=== PATIENT | male | born 1940 | race Caucasian/White ===

== ENCOUNTER 2017-05-18 16:35 | Emergency (ER) | payer MEDICARE, BC ==
[2017-05-18 17:13] VITALS: BP 148/64
--- NOTE | 2017-05-18 17:54 | EDM.PDOC ---
ED HPI GENERAL MEDICAL PROBLEM - General Chief Complaint: General Stated Complaint: not able to sleep at night Time Seen by Provider: 05/18/17 17:15 Source of Information: Reports: Patient History Limitations: Reports: No Limitations - History of Present Illness INITIAL COMMENTS - FREE TEXT/NARRATIVE: Patient presents to discuss insomnia treatment options and check his blood pressure at the request of his . He isn't sure why she wanted him to come to the ER today since he already has an appointment with his PCP tomorrow but he came in anyway. He says he hasn't been able to sleep well for about a week although he is feeling very tired. He wonders what I recommend. 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 He takes Atenolol for blood pressure. - Related Data Allergies Allergy/AdvReac Type Severity Reaction Status Date / Time hydromorphone HCl Allergy Cannot Verified 05/18/17 17:13 [From Dilaudid] Remember penicillin Allergy Hives Verified 05/18/17 17:13 Home Meds: Home Meds Atenolol 25 mg PO DAILY 05/03/15 [History] FLUoxetine [PROzac] 20 mg PO DAILY 05/03/15 [History] Terazosin [Hytrin] 2 mg PO DAILY 05/03/15 [History] Hydrocodone/Acetaminophen [Hydrocodon-Acetaminophn 10-325] 1 - 2 tab PO BID PRN #30 05/12/15 [Rx] Aspirin/Caffeine [Anacin 400-32 mg Tablet] 2 each PO DAILY 06/12/15 [History] Donepezil HCl [Aricept] 5 mg PO BEDTIME 06/12/15 [History] Past Medical History HEENT History: Reports: Cataract Cardiovascular History: Reports: Bypass, CAD, High Cholesterol, Hypertension Respiratory History: Reports: Intubation, Previous Gastrointestinal History: Reports: Chronic Constipation Other Gastrointestinal History: twisted colon with surgical removal Genitourinary History: Reports: Prostate Disorder Other Genitourinary History: urgency Musculoskeletal History: Reports: Arthritis Other Musculoskeletal History: shuffled gait, falls easily, unsteady frequently Neurological History: Reports: None Psychiatric History: Reports: Anxiety, Depression Endocrine/Metabolic History: Reports: None Hematologic History: Reports: None Immunologic History: Reports: None Oncologic (Cancer) History: Reports: None Dermatologic History: Reports: None - Infectious Disease History Infectious Disease History: Reports: Chicken Pox, Measles, Mumps, Pertussis ( Whooping Cough) - Past Surgical History Head Surgeries/Procedures: Reports: None HEENT Surgical History: Reports: Cataract Surgery, Oral Surgery, Tonsillectomy Cardiovascular Surgical History: Reports: Coronary Artery Bypass Respiratory Surgical History: Reports: None GI Surgical History: Reports: Appendectomy, Cholecystectomy, Colon, Colonoscopy , EGD Male Surgical History: Reports: None Musculoskeletal Surgical History: Reports: Hip Replacement Oncologic Surgical History: Reports: None Social & Family History - Tobacco Use Smoking Status *Q: Never Smoker Second Hand Smoke Exposure: No - Caffeine Use Caffeine Use: Reports: Coffee - Alcohol Use Days Per Week of Alcohol Use: 1 Number of Drinks Per Day: 1 Total Drinks Per Week: 1 - Recreational Drug Use Recreational Drug Use: No - Living Situation & Occupation Living situation: Reports: Occupation: Retired ED ROS GENERAL - Review of Systems Review Of Systems: See Below Constitutional: Reports: Fatigue (with insomnia). Denies: Fever, Chills, Malaise, Weakness, Diaphoresis HEENT: Denies: Ear Pain, Throat Pain, Vision Change Respiratory: Denies: Shortness of Breath, Cough Cardiovascular: Denies: Chest Pain, Lightheadedness, Syncope GI/Abdominal: Denies: Abdominal Pain, Constipation, Diarrhea, Vomiting : Denies: Dysuria Musculoskeletal: Reports: No Symptoms Skin: Denies: Cyanosis, Jaundice, Mottled, Pallor, Diaphoresis Neurological: Denies: Confusion, Dizziness, Headache, Seizure, Syncope Psychiatric: Denies: Agitation, Anxiety, Confusion ED EXAM, GENERAL - Physical Exam Exam: See Below Exam Limited By: No Limitations General Appearance: Alert, WD/WN, No Apparent Distress Eye Exam: Bilateral Eye: EOMI, Normal Inspection, PERRL Ears: Normal External Exam, Hearing Grossly Normal Nose: Normal Inspection, No Blood Throat/Mouth: Normal Inspection, Normal Lips, Normal Voice, No Airway Compromise Head: Atraumatic, Normocephalic Neck: Normal Inspection, Full Range of Motion Respiratory/Chest: No Respiratory Distress, Lungs Clear, Normal Breath Sounds, No Accessory Muscle Use Cardiovascular: Regular Rate, Rhythm, No Murmur GI/Abdominal: Normal Bowel Sounds, Soft, Non-Tender, No Organomegaly Back Exam: No: CVA Tenderness (L), CVA Tenderness (R) Extremities: Normal Inspection, Normal Range of Motion Neurological: Alert, Oriented, Normal Cognition, No Motor/Sensory Deficits Psychiatric: Normal Affect, Normal Mood Skin Exam: Warm, Dry, Intact, Normal Color, No Rash Course - Vital Signs Last Recorded V/S: Last Vital Signs Temp 98.2 F 05/18/17 17:11 Pulse 57 L 05/18/17 17:11 Resp 20 05/18/17 17:11 BP 148/64 H 05/18/17 17:11 Pulse Ox 98 05/18/17 17:11 - Re-Assessments/Exams Free Text/Narrative Re-Assessment/Exam: 05/18/17 17:55 Discussed his blood pressure which is fine for ER standards but slightly high for daily average. This should be evaluated by his PCP. I advised him to try the melatonin again tonight and discuss with his PCP tomorrow at his appointment whether this is his best option or if he suggests something else. Patient agrees and is discharged in stable condition. Departure - Departure Time of Disposition: 17:48 Disposition: Home, Self-Care 01 Condition: Good Clinical Impression: Insomnia Qualifiers: Insomnia type: unspecified Qualified Code(s): G47.00 - Insomnia, unspecified - Discharge Information Referrals: Hailey Mcgovern PA-C [Primary Care Provider] - Additional Instructions: 1. Try the melatonin that you picked up yesterday. Follow the instructions on the bottle. 2. Follow up with your PCP tomorrow as scheduled to discuss with him how the melatonin is working and to discuss other options. 3. Discuss blood pressure control with your PCP tomorrow as well.
== END 2017-05-18 18:00 | disposition home or self-care (01) ==
LOC: KA.ED 16:35
DX: G47.00 Insomnia, unspecified (principal); I25.10 Atherosclerotic heart disease of native coronary artery without angina pectoris; I10 Essential (primary) hypertension; E78.00 Pure hypercholesterolemia, unspecified; Z95.1 Presence of aortocoronary bypass graft; M19.90 Unspecified osteoarthritis, unspecified site; Z90.49 Acquired absence of other specified parts of digestive tract; Z98.890 Other specified postprocedural states; Z79.899 Other long term (current) drug therapy; Z88.0 Allergy status to penicillin; Z88.5 Allergy status to narcotic agent
CPT/HCPCS: 99282; 99283

== ENCOUNTER 2018-02-26 12:26 | Inpatient (IN) | payer MEDICARE, BC ==
[2018-02-26 13:16] LABS: ANION GAP 15.9 mmol/L (5-15); CHLORIDE,CL 106 mmol/L (98-115); SODIUM,NA 144 mmol/L (136-145)
[2018-02-26] MEDS ORDERED: Sodium Chloride 0.9% 5 ML Syringe FLUSH PRN (15:08)
[2018-02-26] MEDS ORDERED: LORazepam 0.5 MG Tab PO PRN (15:16)
[2018-02-26] MEDS ORDERED: Lidocaine 2% 100 MG/5 ML Syringe IVPUSH PRN (15:27)
[2018-02-26] MEDS ORDERED: Atropine 0.1 MG/ML 10 ML Syringe IVPUSH PRN (15:27)
[2018-02-26] MEDS ORDERED: Nitroglycerin 0.4 MG Tab.SL SL PRN (15:27)
[2018-02-26] MEDS ORDERED: EPINEPHrine 1:10,000 1 MG/10 ML Syringe IVPUSH PRN (15:27)
[2018-02-26] MEDS: Furosemide 40 MG/4 ML VIAL IVPUSH SCH (17:01)
[2018-02-26] MEDS: Carvedilol 6.25 MG Tab PO SCH (20:06)
[2018-02-26] MEDS: atorvaSTATin 10 MG Tab PO SCH (20:06)
[2018-02-26] MEDS: Apixaban 5 MG Tab PO SCH (20:06)
[2018-02-26] MEDS: Acetaminophen/HYDROcodone 325-10 MG Tab PO PRN (23:50)
[2018-02-27 08:22] LABS: ANION GAP 17.8 mmol/L (5-15); CHLORIDE,CL 104 mmol/L (98-115); SODIUM,NA 146 mmol/L (136-145)
[2018-02-27] MEDS: Furosemide 40 MG/4 ML VIAL IVPUSH SCH ×2 (08:46→16:34)
[2018-02-27] MEDS: FLUoxetine 10 MG Cap PO SCH (08:48)
[2018-02-27] MEDS: Terazosin 1 MG Cap PO SCH (08:49)
[2018-02-27] MEDS: Apixaban 5 MG Tab PO SCH ×2 (08:49→21:37)
--- NOTE | 2018-02-27 09:38 | PCM.PN ---
- General Info Date of Service: 02/27/18 Admission Dx/Problem (Free Text): CHF exacerbation HFrEF - Review of Systems Systems Review Comment:: Bryant is seen today on inpatient rounds. He was admitted from clinic on with CHF exacerbation manifested as worsening LE edema. 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 He had no SOB. 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 He does have a pacemaker. He also has a hx of CAD with CABG in 2001. See admission H&P for full details. He states this morning his legs feel better. He doesn't take his lasix as directed as an outpatient. He has been on 40 mg IV BID. While his BNP did increase from 1030yesterday to 1250 today, his weight is down 4 pounds. A dorsey catheter was attempted to be placed yesterday for accurate I&O's but was unable to be placed. He reportedly can only void 100-200 cc's at a time. He does not feel he empties his bladder completely. He has no SOB or chest pain. He has chronic dizziness. He states "Dr. Pereira gave one of my friends a pill for it and it helped, do you have a pill I could take?". He has never tried meclizine in the past. - Patient Data Vitals - Most Recent: Last Vital Signs Temp 98.1 F 02/27/18 07:00 Pulse 61 02/27/18 07:00 Resp 18 02/27/18 07:00 BP 154/77 H 02/27/18 08:49 Pulse Ox 93 L 02/27/18 07:45 Weight - Most Recent: 182 lb I&O - Last 24 Hours: Intake & Output 02/26/18 02/27/18 02/27/18 22:59 06:59 14:59 Intake Total 320 0 Output Total 1575 675 Balance -1255 -675 Lab Results Last 24 Hours: Laboratory Results - last 24 hr 02/26/18 02/26/18 02/26/18 Range/Units 12:46 12:46 12:46 WBC 4.5 L (5.0-10.0) 10^3/uL RBC 4.01 L (4.50-6.00) 10^6/uL Hgb 10.1 L D (13.0-17.0) g/dL Hct 31.7 L (40.0-52.0) % MCV 79.1 L D (82.0-92.0) fL MCH 25.3 L (27.0-31.0) pg MCHC 32.0 (32.0-36.0) g/dL RDW 17.4 H (11.5-14.5) % Plt Count 159 (150-300) 10^3/uL MPV 8.1 (7.4-10.4) fL Neut % (Auto) 69.8 (50.0-70.0) % Lymph % (Auto) 16.3 L (20.0-40.0) % Gilliam % (Auto) 9.6 H (2.0-8.0) % Eos % (Auto) 3.5 H (1.0-3.0) % Baso % (Auto) 0.8 (0.0-1.0) % Neut # (Auto) 3.2 (2.5-7.0) 10^3/uL Lymph # (Auto) 0.7 L (1.0-4.0) 10^3/uL Gilliam # (Auto) 0.4 (0.1-0.8) 10^3/uL Eos # (Auto) 0.2 (0.1-0.3) 10^3/uL Baso # (Auto) 0.0 (0.0-0.1) 10^3/uL Sodium 144 (136-145) mmol/L Potassium 4.0 (3.3-5.3) mmol/L Chloride 106 (98-115) mmol/L Carbon Dioxide 26.1 (21.0-32.0) mmol/L Anion Gap 15.9 H (5-15) mmol/L BUN 26 H (6-25) mg/dL Creatinine 1.05 (0.51-1.17) mg/dL Est Cr Clr Drug Dosing TNP Estimated GFR (MDRD) > 60 mL/min Glucose 92 mg/dL Calcium 8.7 (8.7-10.3) mg/dL Total Bilirubin 1.7 H (0.2-1.0) mg/dL AST 21 (15-37) U/L ALT 19 (12-78) U/L Alkaline Phosphatase 64 (46-116) IU/L Troponin I < 0.04 (0.00-0.070) ng/mL B-Natriuretic Peptide (0-100) pg/mL Total Protein 6.2 L (6.4-8.2) g/dL Albumin 3.48 (3.00-4.80) g/dL Triglycerides 63 (30-150) mg/dL Cholesterol 89 L (100-199) mg/dL LDL Cholesterol, Calc 40 (0-100) mg/dL HDL Cholesterol 36 L (40-60) mg/dL 02/26/18 02/27/18 02/27/18 Range/Units 13:38 07:25 07:25 WBC 5.0 (5.0-10.0) 10^3/uL RBC 4.31 L (4.50-6.00) 10^6/uL Hgb 11.0 L (13.0-17.0) g/dL Hct 33.9 L (40.0-52.0) % MCV 78.7 L (82.0-92.0) fL MCH 25.4 L (27.0-31.0) pg MCHC 32.3 (32.0-36.0) g/dL RDW 17.7 H (11.5-14.5) % Plt Count 176 (150-300) 10^3/uL MPV 7.9 (7.4-10.4) fL Neut % (Auto) 56.3 (50.0-70.0) % Lymph % (Auto) 26.9 (20.0-40.0) % Gilliam % (Auto) 10.8 H (2.0-8.0) % Eos % (Auto) 4.6 H (1.0-3.0) % Baso % (Auto) 1.4 H (0.0-1.0) % Neut # (Auto) 2.9 (2.5-7.0) 10^3/uL Lymph # (Auto) 1.3 (1.0-4.0) 10^3/uL Gilliam # (Auto) 0.5 (0.1-0.8) 10^3/uL Eos # (Auto) 0.2 (0.1-0.3) 10^3/uL Baso # (Auto) 0.1 (0.0-0.1) 10^3/uL Sodium 146 H (136-145) mmol/L Potassium 4.1 (3.3-5.3) mmol/L Chloride 104 (98-115) mmol/L Carbon Dioxide 28.3 (21.0-32.0) mmol/L Anion Gap 17.8 H (5-15) mmol/L BUN 23 (6-25) mg/dL Creatinine 1.04 (0.51-1.17) mg/dL Est Cr Clr Drug Dosing 54.73 Estimated GFR (MDRD) > 60 mL/min Glucose 98 mg/dL Calcium 9.0 (8.7-10.3) mg/dL Total Bilirubin 1.7 H (0.2-1.0) mg/dL AST 21 (15-37) U/L ALT 18 (12-78) U/L Alkaline Phosphatase 68 (46-116) IU/L Troponin I (0.00-0.070) ng/mL B-Natriuretic Peptide 1030 H 1250 H (0-100) pg/mL Total Protein 6.6 (6.4-8.2) g/dL Albumin 3.60 (3.00-4.80) g/dL Triglycerides (30-150) mg/dL Cholesterol (100-199) mg/dL LDL Cholesterol, Calc (0-100) mg/dL HDL Cholesterol (40-60) mg/dL Med Orders - Current: Current Medications Hydrocodone Bitart/Acetaminophen ([place] 325-10 Mg) 1 tab PO BID PRN PRN Reason: Pain (moderate 4-6) Last Admin: 02/26/18 23:50 Dose: 1 tab Apixaban (Eliquis) 5 mg PO BID DANYA Last Admin: 02/27/18 08:49 Dose: 5 mg Atorvastatin Calcium (Lipitor) 20 mg PO BEDTIME DANYA Last Admin: 02/26/18 20:06 Dose: 20 mg Atropine Sulfate (Atropine 0.1 Mg/Ml) 0 mg IVPUSH ASDIRECTED PRN PRN Reason: Heart Carvedilol (Coreg) 6.25 mg PO BEDTIME DANYA Last Admin: 02/26/18 20:06 Dose: 6.25 mg Epinephrine HCl (Epinephrine 1:10,000) 1 mg IVPUSH ASDIRECTED PRN PRN Reason: Heart Fluoxetine HCl (Prozac) 20 mg PO DAILY [facility] Last Admin: 02/27/18 08:48 Dose: 20 mg Furosemide (Lasix) 40 mg IVPUSH BIDDIURETIC [facility] Last Admin: 02/27/18 08:46 Dose: 40 mg Lidocaine HCl (Xylocaine 2%) 0 mg IVPUSH ASDIRECTED PRN PRN Reason: Heart Lorazepam (Ativan) 1 mg PO BID PRN PRN Reason: Anxiety Nitroglycerin (Nitrostat) 0.4 mg SL ASDIRECTED PRN PRN Reason: Heart Sodium Chloride (Syrex Flush) 5 ml FLUSH Q8HR PRN PRN Reason: Keep Vein Open Terazosin HCl (Hytrin) 2 mg PO DAILY [facility] Last Admin: 02/27/18 08:49 Dose: 2 mg - Exam General: Alert, Oriented, Cooperative, No Acute Distress Lungs: Clear to Auscultation, Normal Respiratory Effort Cardiovascular: No Murmurs, Irregular Rhythm GI/Abdominal Exam: Normal Bowel Sounds Extremities: Pedal Edema (Bilateral pitting edema to his LE's from his knees down. I did not see him yesterday but reportedly this is improved.) - Problem List & Annotations (1) Acute exacerbation of CHF (congestive heart failure) SNOMED Code(s): 87341023 Code(s): I50.9 - HEART FAILURE, UNSPECIFIED Status: Acute Current Visit: Yes (2) Heart failure with reduced ejection fraction SNOMED Code(s): 993696814 Code(s): I50.20 - UNSPECIFIED SYSTOLIC (CONGESTIVE) HEART FAILURE Status: Acute Current Visit: Yes (3) Ischemic dilated cardiomyopathy SNOMED Code(s): 795701909 Code(s): I25.5 - ISCHEMIC CARDIOMYOPATHY; I42.0 - DILATED CARDIOMYOPATHY Status: Acute Current Visit: Yes (4) Peripheral edema SNOMED Code(s): 072674204 Code(s): R60.9 - EDEMA, UNSPECIFIED Status: Acute Current Visit: Yes (5) CAD (coronary artery disease) SNOMED Code(s): 06117378 Code(s): I25.10 - ATHSCL HEART DISEASE OF [place] CORONARY ARTERY W/O ANG PCTRS Status: Acute Current Visit: Yes (6) Atrial fibrillation SNOMED Code(s): 31959483 Code(s): I48.91 - UNSPECIFIED ATRIAL FIBRILLATION Status: Acute Current Visit: Yes (7) BPH (benign prostatic hyperplasia) SNOMED Code(s): 341741397 Code(s): N40.0 - BENIGN PROSTATIC HYPERPLASIA WITHOUT LOWER URINRY TRACT SYMP Status: Acute Current Visit: Yes (8) Dizziness SNOMED Code(s): 588151190, 678806609 Code(s): R42 - DIZZINESS AND GIDDINESS Status: Acute Current Visit: Yes - Problem List Review Problem List Initiated/Reviewed/Updated: Yes - My Orders Last 24 Hours: My Active Orders 02/27/18 09:28 Meclizine [Antivert] 25 mg PO TID PRN 02/27/18 Breakfast Heart Healthy Diet [DIET] - Assessment Assessment:: 1. CHF exacerbation 2. HFrEF 3. Ischemic dilated cardiomyopathy 4. Peripheral edema 5. CAD 6. A-fib 7. BPH 8. Dizziness - Plan Plan:: 1. CHF exacerbation. Continue lasix 40 mg IV BID. Will attempt again today to place dorsey catheter to have the most accurate I&O's. Daily weights. 2. HFrEF Will get TTE. 3. Ischemic dilated cardiomyopathy. Stable. 4. Peripheral edema. Lasix as noted above. LEIA stocking on during the day, off at night. 5. CAD. Continue atorvastatin. 6. A-fib. Rate is controlled, continue CoReg and Eliquis. 7. BPH. Continue terazosin. 8. Dizziness. Will do trial of meclizine 25 mg PO TID PRN.
[2018-02-27] MEDS: Acetaminophen/HYDROcodone 325-10 MG Tab PO PRN ×2 (11:30→22:57)
[2018-02-27] MEDS: Meclizine 25 MG Tab PO PRN ×2 (12:42→21:39)
[2018-02-27] MEDS: Carvedilol 6.25 MG Tab PO SCH (21:39)
[2018-02-27] MEDS: atorvaSTATin 10 MG Tab PO SCH (21:39)
[2018-02-27] MEDS: Bisacodyl 5 MG Tab PO PRN (22:57)
[2018-02-28 07:54] LABS: ANION GAP 16.4 mmol/L (5-15); CHLORIDE,CL 102 mmol/L (98-115); SODIUM,NA 145 mmol/L (136-145)
[2018-02-28] MEDS: Furosemide 40 MG/4 ML VIAL IVPUSH SCH ×2 (08:21→16:37)
[2018-02-28] MEDS: Apixaban 5 MG Tab PO SCH ×2 (08:24→21:21)
[2018-02-28] MEDS: Terazosin 1 MG Cap PO SCH (08:24)
[2018-02-28] MEDS: FLUoxetine 10 MG Cap PO SCH (08:25)
--- NOTE | 2018-02-28 10:04 | PCM.PN ---
- General Info Date of Service: 02/28/18 Admission Dx/Problem (Free Text): CHF exacerbation HFrEF - Review of Systems Systems Review Comment:: Bryant is seen today on inpatient rounds. He was admitted on 02/26/18 with CHF exacerbation manifested by painful and increasing bilateral LE edema. His BNP was elevated at 1030 as well. Last echo from June of 2017 showed an EF of 35-40%. He does have a pacemaker and also has a hx of atrial fibillation, rate controlled. He is on Eliquis for stroke prophylaxis. He has a hx of dilated ischemic cardiomyopathy, HFrEF and CAD having had a CABG remotely. He was not compliant with his lasix at home for unclear reasons. Since admission he has been receiving lasix 40 mg IV BID. In the past 24 hours he is down 7 lbs, 11 total from admission and he also has a negative output down 3340 mL. He is feeling constipated today and his has requested that we restart his home Senna 1 tab PO BID. He has no difficulty breathing. He does state that since initiation of the Meclizine on 02/27/18 he has had a marked improvement in his dizziness to where he states "I actually haven't felt it at all in the last day". - Patient Data Vitals - Most Recent: Last Vital Signs Temp 98.4 F 02/28/18 06:41 Pulse 72 02/28/18 06:41 Resp 16 02/28/18 06:41 BP 154/84 H 02/28/18 08:24 Pulse Ox 95 02/28/18 06:41 Weight - Most Recent: 175 lb 11.2 oz I&O - Last 24 Hours: Intake & Output 02/27/18 02/28/18 02/28/18 22:59 06:59 14:59 Intake Total 560 50 Output Total 1950 400 Balance -1390 -350 Lab Results Last 24 Hours: Laboratory Results - last 24 hr 02/27/18 02/28/18 02/28/18 Range/Units 07:25 07:20 07:20 WBC 5.3 (5.0-10.0) 10^3/uL RBC 4.02 L (4.50-6.00) 10^6/uL Hgb 10.3 L (13.0-17.0) g/dL Hct 31.7 L (40.0-52.0) % MCV 79.0 L (82.0-92.0) fL MCH 25.6 L (27.0-31.0) pg MCHC 32.4 (32.0-36.0) g/dL RDW 18.2 H (11.5-14.5) % Plt Count 165 (150-300) 10^3/uL MPV 8.1 (7.4-10.4) fL Neut % (Auto) 58.2 (50.0-70.0) % Lymph % (Auto) 25.9 (20.0-40.0) % [place] % (Auto) 10.0 H (2.0-8.0) % Eos % (Auto) 4.8 H (1.0-3.0) % Baso % (Auto) 1.1 H (0.0-1.0) % Neut # (Auto) 3.0 (2.5-7.0) 10^3/uL Lymph # (Auto) 1.4 (1.0-4.0) 10^3/uL [place] # (Auto) 0.5 (0.1-0.8) 10^3/uL Eos # (Auto) 0.3 (0.1-0.3) 10^3/uL Baso # (Auto) 0.1 (0.0-0.1) 10^3/uL Sodium 145 (136-145) mmol/L Potassium 3.7 (3.3-5.3) mmol/L Chloride 102 (98-115) mmol/L Carbon Dioxide 30.3 (21.0-32.0) mmol/L Anion Gap 16.4 H (5-15) mmol/L BUN 24 (6-25) mg/dL Creatinine 1.15 (0.51-1.17) mg/dL Est Cr Clr Drug Dosing 49.50 mL/min Estimated GFR (MDRD) > 60 mL/min Glucose 89 mg/dL Calcium 8.2 L (8.7-10.3) mg/dL Iron 37 L (50-150) ug/dL TIBC 423 (261-478) ug/dL Unsaturated IBC 386 H (155-355) ug/dL Transferrin % Sat 8.7 L (20.0-50.0) % Ferritin 18 L (24-336) ng/mL Total Bilirubin 1.6 H (0.2-1.0) mg/dL AST 18 (15-37) U/L ALT 17 (12-78) U/L Alkaline Phosphatase 63 (46-116) IU/L B-Natriuretic Peptide 1080 H (0-100) pg/mL Total Protein 5.9 L (6.4-8.2) g/dL Albumin 3.16 (3.00-4.80) g/dL Med Orders - Current: Current Medications Hydrocodone Bitart/Acetaminophen ([place] 325-10 Mg) 1 tab PO BID PRN PRN Reason: Pain (moderate 4-6) Last Admin: 02/27/18 22:57 Dose: 1 tab Apixaban (Eliquis) 5 mg PO BID [facility] Last Admin: 02/28/18 08:24 Dose: 5 mg Atorvastatin Calcium (Lipitor) 20 mg PO BEDTIME DANYA Last Admin: 02/27/18 21:39 Dose: 20 mg Atropine Sulfate (Atropine 0.1 Mg/Ml) 0 mg IVPUSH ASDIRECTED PRN PRN Reason: Heart Bisacodyl (Dulcolax) 5 mg PO DAILY PRN PRN Reason: Constipation Last Admin: 02/27/18 22:57 Dose: 5 mg Carvedilol (Coreg) 6.25 mg PO BEDTIME [facility] Last Admin: 02/27/18 21:39 Dose: 6.25 mg Epinephrine HCl (Epinephrine 1:10,000) 1 mg IVPUSH ASDIRECTED PRN PRN Reason: Heart Fluoxetine HCl (Prozac) 20 mg PO DAILY [facility] Last Admin: 02/28/18 08:25 Dose: 20 mg Furosemide (Lasix) 40 mg IVPUSH BIDDIURETIC [facility] Last Admin: 02/28/18 08:21 Dose: 40 mg Lidocaine HCl (Xylocaine 2%) 0 mg IVPUSH ASDIRECTED PRN PRN Reason: Heart Lorazepam (Ativan) 1 mg PO BID PRN PRN Reason: Anxiety Meclizine HCl (Antivert) 25 mg PO TID PRN PRN Reason: Dizziness Last Admin: 02/27/18 21:39 Dose: 25 mg Nitroglycerin (Nitrostat) 0.4 mg SL ASDIRECTED PRN PRN Reason: Heart Polysaccharide Iron Complex (Ferrex 150) 150 mg PO DAILY [facility] Senna/Docusate Sodium (Senna Plus) 1 tab PO BID [facility] Sodium Chloride (Syrex Flush) 5 ml FLUSH Q8HR PRN PRN Reason: Keep Vein Open Terazosin HCl (Hytrin) 2 mg PO DAILY [facility] Last Admin: 02/28/18 08:24 Dose: 2 mg - Exam General: Alert, Oriented, Cooperative, No Acute Distress Lungs: Clear to Auscultation, Normal Respiratory Effort Cardiovascular: No Murmurs, Irregular Rhythm GI/Abdominal Exam: Normal Bowel Sounds, Soft, Non-Tender, No Organomegaly, No Distention, No Mass (Male) Exam: Other (Dorsey catheter in place, there is blood in the dorsey bag but the urine in the tubing is clear.) Extremities: Pedal Edema (Pedal edema is improved from yesterday's examination.) - Problem List & Annotations (1) Acute exacerbation of CHF (congestive heart failure) SNOMED Code(s): 15373047 Code(s): I50.9 - HEART FAILURE, UNSPECIFIED Status: Acute Current Visit: Yes (2) Heart failure with reduced ejection fraction SNOMED Code(s): 523515921 Code(s): I50.20 - UNSPECIFIED SYSTOLIC (CONGESTIVE) HEART FAILURE Status: Acute Current Visit: Yes (3) Ischemic dilated cardiomyopathy SNOMED Code(s): 721972846 Code(s): I25.5 - ISCHEMIC CARDIOMYOPATHY; I42.0 - DILATED CARDIOMYOPATHY Status: Acute Current Visit: Yes (4) Peripheral edema SNOMED Code(s): 346426026 Code(s): R60.9 - EDEMA, UNSPECIFIED Status: Acute Current Visit: Yes (5) CAD (coronary artery disease) SNOMED Code(s): 73024209 Code(s): I25.10 - ATHSCL HEART DISEASE OF [place] CORONARY ARTERY W/O ANG PCTRS Status: Acute Current Visit: Yes (6) Atrial fibrillation SNOMED Code(s): 53346310 Code(s): I48.91 - UNSPECIFIED ATRIAL FIBRILLATION Status: Acute Current Visit: Yes (7) BPH (benign prostatic hyperplasia) SNOMED Code(s): 012201046 Code(s): N40.0 - BENIGN PROSTATIC HYPERPLASIA WITHOUT LOWER URINRY TRACT SYMP Status: Acute Current Visit: Yes (8) Dizziness SNOMED Code(s): 304653763, 214763781 Code(s): R42 - DIZZINESS AND GIDDINESS Status: Acute Current Visit: Yes (9) Iron deficiency anemia SNOMED Code(s): 88047909 Code(s): D50.9 - IRON DEFICIENCY ANEMIA, UNSPECIFIED Status: Acute Current Visit: Yes (10) Hematuria SNOMED Code(s): 87676589 Code(s): R31.9 - HEMATURIA, UNSPECIFIED Status: Acute Current Visit: Yes - Problem List Review Problem List Initiated/Reviewed/Updated: Yes - My Orders Last 24 Hours: My Active Orders 02/27/18 09:00 Insert Dorsey Catheter [Insert Urinary Catheter] [OM.PC] Q24H 02/27/18 09:28 Meclizine [Antivert] 25 mg PO TID PRN 02/27/18 13:27 Urinary Catheter Assessment [RC] 0100,0900,1700 02/27/18 22:36 Bisacodyl [Dulcolax] 5 mg PO DAILY PRN 02/28/18 09:58 Vital Signs [RC] Q8H 02/28/18 10:00 Docusate Sodium/Sennosides [Senna Plus] 1 tab PO BID [place] Polysaccharides Complex [Ferrex 150] 150 mg PO DAILY 03/01/18 05:11 B-TYPE NATRIURETIC PEPTIDE,BNP [CHEM] AM CBC WITH AUTO DIFF [HEME] AM COMPREHENSIVE METABOLIC PN,CMP [CHEM] AM 03/02/18 05:11 B-TYPE NATRIURETIC PEPTIDE,BNP [CHEM] AM CBC WITH AUTO DIFF [HEME] AM COMPREHENSIVE METABOLIC PN,CMP [CHEM] AM 03/03/18 05:11 B-TYPE NATRIURETIC PEPTIDE,BNP [CHEM] AM CBC WITH AUTO DIFF [HEME] AM COMPREHENSIVE METABOLIC PN,CMP [CHEM] AM 03/04/18 05:11 B-TYPE NATRIURETIC PEPTIDE,BNP [CHEM] AM CBC WITH AUTO DIFF [HEME] AM COMPREHENSIVE METABOLIC PN,CMP [CHEM] AM - Assessment Assessment:: 1. CHF exacerbation 2. HFrEF 3. Ischemic dilated cardiomyopathy 4. Peripheral edema 5. CAD 6. A-fib 7. BPH 8. Dizziness 9. Iron deficiency anemia 10. Constipation 11. Hematuria - Plan Plan:: 1. CHF exacerbation. Continue lasix 40 mg IV BID. Will attempt again today to place dorsey catheter to have the most accurate I&O's. Daily weights. 2. HFrEF Will get TTE. 3. Ischemic dilated cardiomyopathy. Stable. 4. Peripheral edema. Lasix as noted above. LEIA stocking on during the day, off at night. 5. CAD. Continue atorvastatin. 6. A-fib. Rate is controlled, continue CoReg and Eliquis. 7. BPH. Continue terazosin. 8. Dizziness. Will do trial of meclizine 25 mg PO TID PRN. 9. Iron Deficiency Anemia. Will start Iron 150 mg PO daily. May need further work-up as an outpatient. 10. Constipation. Will restart Senna 1 tab PO BID and he has Dulocolax daily PRN as well. 11. Hematuria. Likely dorsey related trauma as urine in the tubing is clear. PT consult for evaluation of swingbed placement vs. discharge to home on .
[2018-02-28] MEDS: Iron Polysaccharides Complex 150 MG Cap PO SCH (10:32)
[2018-02-28] MEDS: Meclizine 25 MG Tab PO PRN (10:34)
[2018-02-28] MEDS: Carvedilol 6.25 MG Tab PO SCH (21:21)
[2018-02-28] MEDS: atorvaSTATin 10 MG Tab PO SCH (21:22)
[2018-02-28] MEDS: Acetaminophen/HYDROcodone 325-10 MG Tab PO PRN (22:24)
[2018-03-01] MEDS: Acetaminophen/HYDROcodone 325-10 MG Tab PO PRN ×2 (01:14→22:33)
[2018-03-01 08:25] LABS: ANION GAP 12.4 mmol/L (5-15); CHLORIDE,CL 101 mmol/L (98-115); SODIUM,NA 140 mmol/L (136-145)
[2018-03-01] MEDS: Furosemide 40 MG/4 ML VIAL IVPUSH SCH ×2 (08:37→16:16)
[2018-03-01] MEDS: Apixaban 5 MG Tab PO SCH ×2 (08:40→20:29)
[2018-03-01] MEDS: Terazosin 1 MG Cap PO SCH (08:40)
[2018-03-01] MEDS: FLUoxetine 10 MG Cap PO SCH (08:40)
[2018-03-01] MEDS: Meclizine 25 MG Tab PO PRN (08:42)
[2018-03-01] MEDS: Iron Polysaccharides Complex 150 MG Cap PO SCH (08:42)
--- NOTE | 2018-03-01 09:09 | PCM.PN ---
- General Info Date of Service: 03/01/18 Admission Dx/Problem (Free Text): CHF exacerbation HFrEF Subjective Update: Bryant is seen this morning rounds for Dr. Maddie Ventura. He was admitted on with an exacerbation of his CHF with significant increase in weight gain and bilateral lower extremity edema. His BMP on admission was 1030. Today his BMP is in the 700s. He states that he is feeling much better. He is not having significant amount of shortness of breath or difficulty breathing. He is been on Lasix 40 mg IV twice a day and has lost a total of 18 pounds. They were able to place a Dorsey yesterday and is continued to diurese nicely. There is some concern this morning that he is having no montse to bloody urine. They had difficulty trying to place a Dorsey in him the day before attempting 3 different times. The nurse was able to get insertion of a Dorsey catheter with a daily yesterday. The bleeding and the Dorsey is of significant concern this is likely due to mild trauma in addition that he is on a Eliquis. Functional Status: Reports: Pain Controlled, Tolerating Diet, Ambulating, Urinating - Review of Systems General: Reports: No Symptoms HEENT: Reports: No Symptoms Pulmonary: Denies: Shortness of Breath, Pleuritic Chest Pain, Cough Cardiovascular: Denies: Chest Pain Gastrointestinal: Denies: Abdominal Pain Genitourinary: Reports: Hematuria Musculoskeletal: Reports: No Symptoms Skin: Reports: No Symptoms Neurological: Reports: No Symptoms Psychiatric: Reports: No Symptoms - Patient Data Vitals - Most Recent: Last Vital Signs Temp 98.9 F 03/01/18 05:59 Pulse 72 03/01/18 05:59 Resp 16 03/01/18 05:59 BP 118/70 03/01/18 08:40 Pulse Ox 95 03/01/18 05:59 Weight - Most Recent: 168 lb 1.6 oz I&O - Last 24 Hours: Intake & Output 02/28/18 03/01/18 03/01/18 22:59 06:59 14:59 Intake Total 200 250 Output Total 3625 375 Balance -3425 -125 Lab Results Last 24 Hours: Laboratory Results - last 24 hr 03/01/18 03/01/18 Range/Units 07:30 07:30 WBC 5.7 (5.0-10.0) 10^3/uL RBC 4.20 L (4.50-6.00) 10^6/uL Hgb 10.7 L (13.0-17.0) g/dL Hct 32.9 L (40.0-52.0) % MCV 78.4 L (82.0-92.0) fL MCH 25.6 L (27.0-31.0) pg MCHC 32.6 (32.0-36.0) g/dL RDW 17.7 H (11.5-14.5) % Plt Count 169 (150-300) 10^3/uL MPV 8.5 (7.4-10.4) fL Neut % (Auto) 54.7 (50.0-70.0) % Lymph % (Auto) 27.1 (20.0-40.0) % Stephens % (Auto) 11.9 H (2.0-8.0) % Eos % (Auto) 5.0 H (1.0-3.0) % Baso % (Auto) 1.3 H (0.0-1.0) % Neut # (Auto) 3.1 (2.5-7.0) 10^3/uL Lymph # (Auto) 1.5 (1.0-4.0) 10^3/uL Stephens # (Auto) 0.7 (0.1-0.8) 10^3/uL Eos # (Auto) 0.3 (0.1-0.3) 10^3/uL Baso # (Auto) 0.1 (0.0-0.1) 10^3/uL Sodium 140 (136-145) mmol/L Potassium 3.7 (3.3-5.3) mmol/L Chloride 101 (98-115) mmol/L Carbon Dioxide 30.3 (21.0-32.0) mmol/L Anion Gap 12.4 (5-15) mmol/L BUN 24 (6-25) mg/dL Creatinine 1.14 (0.51-1.17) mg/dL Est Cr Clr Drug Dosing 49.93 mL/min Estimated GFR (MDRD) > 60 mL/min Glucose 87 mg/dL Calcium 8.7 (8.7-10.3) mg/dL Total Bilirubin 1.9 H (0.2-1.0) mg/dL AST 19 (15-37) U/L ALT 17 (12-78) U/L Alkaline Phosphatase 67 (46-116) IU/L B-Natriuretic Peptide 708 H (0-100) pg/mL Total Protein 6.2 L (6.4-8.2) g/dL Albumin 3.27 (3.00-4.80) g/dL Med Orders - Current: Current Medications Hydrocodone Bitart/Acetaminophen ([place] 325-10 Mg) 1 tab PO BID PRN PRN Reason: Pain (moderate 4-6) Last Admin: 03/01/18 01:14 Dose: 1 tab Apixaban (Eliquis) 5 mg PO BID [facility] Last Admin: 03/01/18 08:40 Dose: 5 mg Atorvastatin Calcium (Lipitor) 20 mg PO BEDTIME [facility] Last Admin: 02/28/18 21:22 Dose: 20 mg Atropine Sulfate (Atropine 0.1 Mg/Ml) 0 mg IVPUSH ASDIRECTED PRN PRN Reason: Heart Bisacodyl (Dulcolax) 5 mg PO DAILY PRN PRN Reason: Constipation Last Admin: 02/27/18 22:57 Dose: 5 mg Carvedilol (Coreg) 6.25 mg PO BEDTIME [facility] Last Admin: 02/28/18 21:21 Dose: 6.25 mg Epinephrine HCl (Epinephrine 1:10,000) 1 mg IVPUSH ASDIRECTED PRN PRN Reason: Heart Fluoxetine HCl (Prozac) 20 mg PO DAILY [facility] Last Admin: 03/01/18 08:40 Dose: 20 mg Furosemide (Lasix) 40 mg IVPUSH BIDDIURETIC [facility] Last Admin: 03/01/18 08:37 Dose: 40 mg Lidocaine HCl (Xylocaine 2%) 0 mg IVPUSH ASDIRECTED PRN PRN Reason: Heart Lorazepam (Ativan) 1 mg PO BID PRN PRN Reason: Anxiety Last Admin: 03/01/18 01:14 Dose: 1 mg Meclizine HCl (Antivert) 25 mg PO TID PRN PRN Reason: Dizziness Last Admin: 03/01/18 08:42 Dose: 25 mg Nitroglycerin (Nitrostat) 0.4 mg SL ASDIRECTED PRN PRN Reason: Heart Polysaccharide Iron Complex (Ferrex 150) 150 mg PO DAILY [facility] Last Admin: 03/01/18 08:42 Dose: 150 mg Senna/Docusate Sodium (Senna Plus) 1 tab PO BID [facility] Last Admin: 03/01/18 08:42 Dose: 1 tab Sodium Chloride (Syrex Flush) 5 ml FLUSH Q8HR PRN PRN Reason: Keep Vein Open Terazosin HCl (Hytrin) 2 mg PO DAILY [facility] Last Admin: 03/01/18 08:40 Dose: 2 mg - Exam General: Alert, Oriented HEENT: EOMI, Mucous Membr. Moist/[place] Neck: Supple Lungs: Clear to Auscultation, Normal Respiratory Effort Cardiovascular: Regular Rate, Regular Rhythm GI/Abdominal Exam: Soft, Non-Tender Extremities: Normal Inspection, Pedal Edema (mild. Per nurses report is pitting edema is down significantly.) Skin: Warm, Dry, Intact Neurological: No New Focal Deficit Psy/Mental Status: Alert, Normal Mood - Problem List Review Problem List Initiated/Reviewed/Updated: Yes - Assessment Assessment:: 1. CHF exacerbation 2. HFrEF 3. Ischemic dilated cardiomyopathy 4. Peripheral edema 5. CAD 6. A-fib 7. BPH 8. Dizziness 9. Iron deficiency anemia 10. Constipation 11. Hematuria - Plan Plan:: 1. CHF exacerbation. Continue lasix 40 mg IV BID. Will attempt again today to place dorsey catheter to have the most accurate I&O's. Daily weights. 2. HFrEF Will get TTE. 3. Ischemic dilated cardiomyopathy. Stable. 4. Peripheral edema. Lasix as noted above. LEIA stocking on during the day, off at night. 5. CAD. Continue atorvastatin. 6. A-fib. Rate is controlled, continue CoReg and Eliquis. 7. BPH. Continue terazosin. 8. Dizziness. Will do trial of meclizine 25 mg PO TID PRN. 9. Iron Deficiency Anemia. Will start Iron 150 mg PO daily. May need further work-up as an outpatient. 10. Constipation. Will restart Senna 1 tab PO BID and he has Dulocolax daily PRN as well. 11. Hematuria. Likely dorsey related trauma as urine in the tubing is clear. PT consult for evaluation of swingbed placement vs. discharge to home on .
[2018-03-01] MEDS ORDERED: LORazepam 0.5 MG Tab PO PRN (13:38)
[2018-03-01] MEDS: atorvaSTATin 10 MG Tab PO SCH (20:30)
[2018-03-01] MEDS: Bisacodyl 5 MG Tab PO PRN (20:30)
[2018-03-01] MEDS: Carvedilol 6.25 MG Tab PO SCH (20:30)
[2018-03-02] MEDS: Acetaminophen/HYDROcodone 325-10 MG Tab PO PRN (02:10)
[2018-03-02 06:54] VITALS: BP 131/63
[2018-03-02 08:08] LABS: ANION GAP 15.5 mmol/L (5-15); CHLORIDE,CL 98 mmol/L (98-115); SODIUM,NA 139 mmol/L (136-145)
[2018-03-02] MEDS: FLUoxetine 10 MG Cap PO SCH (08:29)
[2018-03-02] MEDS: Meclizine 25 MG Tab PO PRN (08:30)
[2018-03-02] MEDS: Terazosin 1 MG Cap PO SCH (08:30)
[2018-03-02] MEDS: Apixaban 5 MG Tab PO SCH (08:30)
[2018-03-02] MEDS: Iron Polysaccharides Complex 150 MG Cap PO SCH (08:41)
[2018-03-02] MEDS ORDERED: Furosemide 40 MG Tab PO SCH (10:00)
--- NOTE | 2018-03-02 10:58 | PCM.DCSUM1 ---
Discharge Summary - Hospital Course Free Text/Narrative:: Bryant is being discharged from an inpatient stay from 02/26/18 - 03/02/18 for CHF exacerbation manifested by bilateral, painful pitting edema. He was admitted on 02/26/18 with CHF exacerbation manifested by painful and increasing bilateral LE edema. His BNP was elevated at 1030 as well. Last echo from June of 2017 showed an EF of 35-40%. He does have a pacemaker and also has a hx of atrial fibillation, rate controlled. He is on Eliquis for stroke prophylaxis. He has a hx of dilated ischemic cardiomyopathy, HFrEF and CAD having had a CABG remotely. He was not compliant with his lasix at home for unclear reasons. Since admission he has been receiving lasix 40 mg IV BID. His weight is down 20 pounds since admission and his legs are markedly improved. He has no difficulty breathing. He does state that since initiation of the Meclizine on 02/27/18 he has had a marked improvement in his dizziness to where he states "I actually haven't felt it at all in the last day". He has been receiving this every morning. He has been noted to have hematuria in his dorsey bag over the past 3 days. His hemoglobin has remained stable at 11.5 today and it was 10.7 on 03/01/18. This is presumed to be due to dorsey catheter trauma and the fact that he is on Eliquis for stroke prophylaxis with a hx of a-fib. His BNP is down to 471 from a high of 1250. Renal function and potassium have remained normal. He is weak and deconditioned, his gait is unsteady and he requires assistance with walking. He is going to be admitted to [facility] today, 03/02/18, for strengthening and for gait training. His lasix will be changed to 40 mg PO daily today. He will have no other medication changes other than the addition of meclizine which was started on 02/27/18 and the addition of Iron tablets started on . 1. CHF exacerbation. Marked improvement, change lasix to 40 mg PO daily from 40 mg IV BID. 2. HFrEF Will get TTE. 3. Ischemic dilated cardiomyopathy. Stable. 4. Peripheral edema. Lasix as noted above. LEIA stocking on during the day, off at night. 5. CAD. Continue atorvastatin. 6. A-fib. Rate is controlled, continue CoReg and Eliquis. 7. BPH. Continue terazosin. 8. Dizziness. Continue meclizine 25 mg PO TID PRN. 9. Iron Deficiency Anemia. Will start Iron 150 mg PO daily. May need further work-up as an outpatient. 10. Constipation. Senna 1 tab PO BID and he has Dulocolax daily PRN as well. 11. Hematuria. Likely dorsey related trauma as urine in the tubing is clear. Hemoglobin stable. [facility] Diagnosis: Stroke: No - Discharge Data Discharge Date: 03/02/18 Discharge Disposition: DC/Tfer W/I Hosp To Swing 61 Condition: Good - Discharge Diagnosis/Problem(s) (1) Acute exacerbation of CHF (congestive heart failure) SNOMED Code(s): 08866698 ICD Code: I50.9 - HEART FAILURE, UNSPECIFIED Status: Acute Current Visit : Yes (2) Heart failure with reduced ejection fraction SNOMED Code(s): 943955633 ICD Code: I50.20 - UNSPECIFIED SYSTOLIC (CONGESTIVE) HEART FAILURE Status: Acute Current Visit: Yes (3) Ischemic dilated cardiomyopathy SNOMED Code(s): 650196683 ICD Code: I25.5 - ISCHEMIC CARDIOMYOPATHY; I42.0 - DILATED CARDIOMYOPATHY Status: Acute Current Visit: Yes (4) Peripheral edema SNOMED Code(s): 229841428 ICD Code: R60.9 - EDEMA, UNSPECIFIED Status: Acute Current Visit: Yes (5) CAD (coronary artery disease) SNOMED Code(s): 64450099 ICD Code: I25.10 - ATHSCL HEART DISEASE OF [place] CORONARY ARTERY W/O ANG PCTRS Status: Acute Current Visit: Yes (6) Atrial fibrillation SNOMED Code(s): 12993995 ICD Code: I48.91 - UNSPECIFIED ATRIAL FIBRILLATION Status: Acute Current Visit: Yes (7) BPH (benign prostatic hyperplasia) SNOMED Code(s): 859342790 ICD Code: N40.0 - BENIGN PROSTATIC HYPERPLASIA WITHOUT LOWER URINRY TRACT SYMP Status: Acute Current Visit: Yes (8) Dizziness SNOMED Code(s): 516641231, 563777666 ICD Code: R42 - DIZZINESS AND GIDDINESS Status: Acute Current Visit: Yes (9) Iron deficiency anemia SNOMED Code(s): 67853046 ICD Code: D50.9 - IRON DEFICIENCY ANEMIA, UNSPECIFIED Status: Acute Current Visit: Yes (10) Hematuria SNOMED Code(s): 75902251 ICD Code: R31.9 - HEMATURIA, UNSPECIFIED Status: Acute Current Visit: Yes - Patient Summary/Data Consults: Consultations 02/26/18 15:08 PT Evaluation and Treatment [CONS] Routine - Patient Instructions Diet: Regular Diet as Tolerated - Discharge Plan *PRESCRIPTION DRUG MONITORING PROGRAM REVIEWED*: Not Applicable *COPY OF PRESCRIPTION DRUG MONITORING REPORT IN PATIENT HUMA: Not Applicable Home Medications: Home Meds FLUoxetine [PROzac] 20 mg PO DAILY 05/03/15 [History] Terazosin [Hytrin] 2 mg PO DAILY 05/03/15 [History] Hydrocodone/Acetaminophen [Hydrocodon-Acetaminophn 10-325] 1 - 2 tab PO BID PRN #30 05/12/15 [Rx] Aspirin/Caffeine [Anacin 400-32 mg Tablet] 2 each PO DAILY PRN 06/12/15 [History ] Apixaban [Eliquis] 5 mg PO BID 02/27/18 [History] Carvedilol 6.25 mg PO BEDTIME 02/27/18 [History] Lutein/Minerals/Vit A,C & E [Ocuvite] 1 tab PO DAILY 02/27/18 [History] Sennosides/Docusate Sodium [Senna Plus Tablet] 1 tab PO BID PRN 02/27/18 [ History] atorvaSTATin [Lipitor] 20 mg PO BEDTIME 02/27/18 [History] Iron Polysaccharides Complex [Ferrex 150] 150 mg PO DAILY cap 03/02/18 [Rx] - Discharge Summary/Plan Comment DC Time >30 min.: No - General Info Date of Service: 03/02/18 - Review of Systems Systems Review Comment: 10 point ROS obtained, all pertinent positives listed in the HPI, all other systems negative. - Patient Data Vitals - Most Recent: Last Vital Signs Temp 98.9 F 03/02/18 06:53 Pulse 67 03/02/18 06:53 Resp 18 03/02/18 06:53 BP 131/63 03/02/18 06:53 Pulse Ox 95 03/02/18 07:35 Weight - Most Recent: 166 lb 1.6 oz I&O - Last 24 hours: Intake & Output 03/01/18 03/02/18 03/02/18 22:59 06:59 14:59 Intake Total 370 500 Output Total 1700 525 Balance -1330 -25 Lab Results - Last 24 hrs: Laboratory Results - last 24 hr 03/02/18 03/02/18 Range/Units 07:30 07:30 WBC 5.2 (5.0-10.0) 10^3/uL RBC 4.55 (4.50-6.00) 10^6/uL Hgb 11.5 L (13.0-17.0) g/dL Hct 34.4 L (40.0-52.0) % MCV 75.6 L (82.0-92.0) fL MCH 25.2 L (27.0-31.0) pg MCHC 33.3 (32.0-36.0) g/dL RDW 18.2 H (11.5-14.5) % Plt Count 195 (150-300) 10^3/uL MPV 7.5 (7.4-10.4) fL Neut % (Auto) 53.9 (50.0-70.0) % Lymph % (Auto) 27.9 (20.0-40.0) % [place] % (Auto) 11.9 H (2.0-8.0) % Eos % (Auto) 5.2 H (1.0-3.0) % Baso % (Auto) 1.1 H (0.0-1.0) % Neut # (Auto) 2.7 (2.5-7.0) 10^3/uL Lymph # (Auto) 1.5 (1.0-4.0) 10^3/uL [place] # (Auto) 0.6 (0.1-0.8) 10^3/uL Eos # (Auto) 0.3 (0.1-0.3) 10^3/uL Baso # (Auto) 0.1 (0.0-0.1) 10^3/uL Sodium 139 (136-145) mmol/L Potassium 3.8 (3.3-5.3) mmol/L Chloride 98 (98-115) mmol/L Carbon Dioxide 29.3 (21.0-32.0) mmol/L Anion Gap 15.5 H (5-15) mmol/L BUN 25 (6-25) mg/dL Creatinine 1.14 (0.51-1.17) mg/dL Est Cr Clr Drug Dosing 49.93 mL/min Estimated GFR (MDRD) > 60 mL/min Glucose 97 mg/dL Calcium 9.1 (8.7-10.3) mg/dL Total Bilirubin 2.0 H (0.2-1.0) mg/dL AST 33 (15-37) U/L ALT 19 (12-78) U/L Alkaline Phosphatase 78 (46-116) IU/L B-Natriuretic Peptide 471 H (0-100) pg/mL Total Protein 6.8 (6.4-8.2) g/dL Albumin 3.59 (3.00-4.80) g/dL Med Orders - Current: Current Medications Hydrocodone Bitart/Acetaminophen ([place] 325-10 Mg) 1 tab PO BID PRN PRN Reason: Pain (moderate 4-6) Last Admin: 03/02/18 02:10 Dose: 1 tab Apixaban (Eliquis) 5 mg PO BID [facility] [place] Last Admin: 03/02/18 08:30 Dose: 5 mg Atorvastatin Calcium (Lipitor) 20 mg PO BEDTIME [facility] [place] Last Admin: 03/01/18 20:30 Dose: 20 mg Bisacodyl (Dulcolax) 5 mg PO DAILY PRN PRN Reason: Constipation Last Admin: 03/01/18 20:30 Dose: 5 mg Carvedilol (Coreg) 6.25 mg PO BEDTIME [facility] Last Admin: 03/01/18 20:30 Dose: 6.25 mg Fluoxetine HCl (Prozac) 20 mg PO DAILY [facility] Last Admin: 03/02/18 08:29 Dose: 20 mg Furosemide (Lasix) 40 mg PO DAILY [facility] Last Admin: 03/02/18 10:46 Dose: 40 mg Lorazepam (Ativan) 0.5 mg PO BID PRN PRN Reason: Anxiety Meclizine HCl (Antivert) 25 mg PO TID PRN PRN Reason: Dizziness Last Admin: 03/02/18 08:30 Dose: 25 mg Polysaccharide Iron Complex (Ferrex 150) 150 mg PO DAILY [facility] Last Admin: 03/02/18 08:41 Dose: 150 mg Senna/Docusate Sodium (Senna Plus) 1 tab PO BID [facility] Last Admin: 03/02/18 08:30 Dose: 1 tab Sodium Chloride (Syrex Flush) 5 ml FLUSH Q8HR PRN PRN Reason: Keep Vein Open Terazosin HCl (Hytrin) 2 mg PO DAILY [facility] [place] Last Admin: 03/02/18 08:30 Dose: 2 mg Discontinued Medications Atropine Sulfate (Atropine 0.1 Mg/Ml) 0 mg IVPUSH ASDIRECTED PRN PRN Reason: Heart Epinephrine HCl (Epinephrine 1:10,000) 1 mg IVPUSH ASDIRECTED PRN PRN Reason: Heart Furosemide (Lasix) 40 mg IVPUSH BIDDIURETIC [facility] [place] Last Admin: 03/01/18 16:16 Dose: 40 mg Lidocaine HCl (Xylocaine 2%) 0 mg IVPUSH ASDIRECTED PRN PRN Reason: Heart Lorazepam (Ativan) 1 mg PO BID PRN PRN Reason: Anxiety Last Admin: 03/01/18 01:14 Dose: 1 mg Nitroglycerin (Nitrostat) 0.4 mg SL ASDIRECTED PRN PRN Reason: Heart - Exam General: Reports: Alert, Oriented, Cooperative, No Acute Distress Lungs: Reports: Clear to Auscultation, Normal Respiratory Effort Cardiovascular: Reports: Regular Rate, No Murmurs, Irregular Rhythm GI/Abdominal Exam: Normal Bowel Sounds Extremities: Pedal Edema (Markedly improved since admission.)
[2018-03-02] MEDS: Furosemide 40 MG/4 ML VIAL IVPUSH SCH (14:18)
== END 2018-03-02 10:58 | disposition swing bed (61) | DRG 292 ==
LOC: KA.OC 12:26 → KA.MS 14:33
PROVIDERS: ATTEND Internal Medicine
DX: I50.23 Acute on chronic systolic (congestive) heart failure (principal); I42.0 Dilated cardiomyopathy; I48.91 Unspecified atrial fibrillation; E78.00 Pure hypercholesterolemia, unspecified; F32.9 Major depressive disorder, single episode, unspecified; M19.90 Unspecified osteoarthritis, unspecified site; F41.9 Anxiety disorder, unspecified; N40.0 Benign prostatic hyperplasia without lower urinary tract symptoms; I25.10 Atherosclerotic heart disease of native coronary artery without angina pectoris; I25.5 Ischemic cardiomyopathy; Z91.14 Patient's other noncompliance with medication regimen; Z88.5 Allergy status to narcotic agent; Z88.0 Allergy status to penicillin; Z79.01 Long term (current) use of anticoagulants; Z79.899 Other long term (current) drug therapy; Z95.1 Presence of aortocoronary bypass graft; Z79.82 Long term (current) use of aspirin; Z95.0 Presence of cardiac pacemaker; D50.9 Iron deficiency anemia, unspecified; R60.9 Edema, unspecified; R42 Dizziness and giddiness; T83.091A Other mechanical complication of indwelling urethral catheter, initial encounter; R31.9 Hematuria, unspecified; Y84.6 Urinary catheterization as the cause of abnormal reaction of the patient, or of later complication, without mention of misadventure at the time of the procedure; K59.00 Constipation, unspecified; N40.1 Benign prostatic hyperplasia with lower urinary tract symptoms; R39.14 Feeling of incomplete bladder emptying
CPT/HCPCS: 36415; 51702; 51798; 71046; 80053; 80061; 82728; 83540; 83550; 83880; 84484; 85025; 93005; 97110-GP; 97162-GP; A9270-GY; J1940

== ENCOUNTER 2019-02-18 17:58 | Emergency (ER) | payer MEDICARE, BC ==
[2019-02-18 18:09] VITALS: BP 94/49; PULSE 60
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
== END 2019-02-18 19:00 | disposition home or self-care (01) ==
LOC: KA.ED 17:58
DX: I11.0 Hypertensive heart disease with heart failure (principal); I50.9 Heart failure, unspecified; I25.10 Atherosclerotic heart disease of native coronary artery without angina pectoris; E78.00 Pure hypercholesterolemia, unspecified; F41.9 Anxiety disorder, unspecified; F32.9 Major depressive disorder, single episode, unspecified; I25.2 Old myocardial infarction; Z79.899 Other long term (current) drug therapy; Z88.0 Allergy status to penicillin; Z88.6 Allergy status to analgesic agent
CPT/HCPCS: 99283; 99284

== ENCOUNTER 2019-02-23 10:51 | Emergency (ER) | payer MEDICARE, BC ==
[2019-02-23] MEDS: Sodium Chloride 0.9% 10 ML Syringe FLUSH PRN ×3 (10:51→12:23)
[2019-02-23] MEDS ORDERED: Sodium Chloride 0.9% 1,000 ML ONE (10:55)
[2019-02-23] MEDS ORDERED: Sodium Chloride 0.9% 1,000 ML IV ONE (11:06)
[2019-02-23 11:24] LABS: ANION GAP 14.8 mmol/L (5-15); CHLORIDE,CL 109 mmol/L (98-115); SODIUM,NA 139 mmol/L (136-145)
[2019-02-23] MEDS ORDERED: Sodium Chloride 0.9% 500 ML ONE (11:46)
[2019-02-23] MEDS ORDERED: Sodium Chloride 0.9% 500 ML IV SCH (12:00)
[2019-02-23] MEDS ORDERED: Sodium Chloride 0.9% 1,000 ML IV SCH (12:00)
[2019-02-23 12:16] VITALS: BP 106/30; PULSE 77
--- NOTE | 2019-02-23 12:41 | EDM.PDOC ---
ED HPI GENERAL MEDICAL PROBLEM - General Chief Complaint: Gastrointestinal Problem Stated Complaint: THROWING UP, FALLS, BOWEL MOVEMENTS Time Seen by Provider: 02/23/19 11:09 Source of Information: Reports: Patient, Significant Other History Limitations: Reports: No Limitations - History of Present Illness INITIAL COMMENTS - FREE TEXT/NARRATIVE: Patient presents with complaint of 6 episodes of reddish/black emesis early this morning and 2 falls. The falls were as he was getting up from his bed. He fell backward and hit his head on the carpet one time he says. He denies any blurry vision or neck pain. Pt's tells me he has had black stools; first noticed at least two weeks ago, improved and worse again last few days. No history of anemia or GI bleed. - Related Data Allergies Allergy/AdvReac Type Severity Reaction Status Date / Time hydromorphone HCl Allergy Confusion Verified 02/23/19 11:01 [From Dilaudid] penicillin Allergy Hives Verified 02/23/19 11:01 Home Meds: Home Meds Carvedilol 6.25 mg PO BIDMEALS 02/27/18 [History] Sennosides/Docusate Sodium [Senna Plus Tablet] 1 tab PO DAILY 02/27/18 [History] LORazepam 0.5 mg PO Q6H PRN 03/02/18 [History] Apixaban [Eliquis] 5 mg PO BID tablet 03/09/18 [Rx] atorvaSTATin [Lipitor] 20 mg PO BEDTIME tablet 03/09/18 [Rx] FLUoxetine [PROzac] 20 mg PO MOWEFR 06/21/18 [History] Hydrocodone/Acetaminophen [Hydrocodon-Acetaminophn 10-325] 1 tab PO BID PRN 06/28 [History] Tamsulosin [Flomax] 0.4 mg PO BEDTIME 06/21/18 [History] Terazosin [Hytrin] 2 mg PO BEDTIME 06/21/18 [History] Furosemide [Lasix] 20 mg PO BID@,12 08/07/18 [History] Lidocaine HCl [Aspercreme] 1 applic TOP BEDTIME PRN 02/23/19 [History] Ondansetron [Zofran ODT] 4 mg BUCCAL Q6H PRN 02/23/19 [History] Past Medical History HEENT History: Reports: Cataract, Hard of Hearing Other HEENT History: hydrocephalous Cardiovascular History: Reports: Bypass, CAD, Heart Failure, High Cholesterol, Hypertension, [place], Pacemaker Respiratory History: Reports: Intubation, Previous Gastrointestinal History: Reports: Chronic Constipation Other Gastrointestinal History: twisted colon with surgical removal Genitourinary History: Reports: BPH, Prostate Disorder, Retention, Urinary Other Genitourinary History: urgency Musculoskeletal History: Reports: Arthritis Other Musculoskeletal History: shuffled gait, falls easily, unsteady frequently Neurological History: Reports: Other (See Below) Other Neuro History: dizziness,. denies history. he is forgetful at times. Psychiatric History: Reports: Anxiety, Depression Endocrine/Metabolic History: Reports: None Hematologic History: Reports: None, Blood Transfusion(s), Other (See Below) Other Hematologic History: on iron daily Immunologic History: Reports: None Oncologic (Cancer) History: Reports: None Dermatologic History: Reports: None - Infectious Disease History Infectious Disease History: Reports: Chicken Pox, Measles, Mumps, Pertussis ( Whooping Cough) - Past Surgical History HEENT Surgical History: Reports: Cataract Surgery, Oral Surgery, Tonsillectomy Cardiovascular Surgical History: Reports: Coronary Artery Bypass, Pacer Respiratory Surgical History: Reports: None GI Surgical History: Reports: Appendectomy, Cholecystectomy, Colon, Colonoscopy , EGD Male Surgical History: Reports: None Neurological Surgical History: Reports: None Musculoskeletal Surgical History: Reports: Hip Replacement Oncologic Surgical History: Reports: None Social & Family History - Family History Family Medical History: Noncontributory Oncologic: Reports: Bladder, Lung - Caffeine Use Caffeine Use: Reports: Coffee, Tea - Living Situation & Occupation Living situation: Reports: Occupation: Retired ED [employer] [facility] - Review of Systems Review Of Systems: See Below Constitutional: Reports: Weakness. Denies: Fever, Chills HEENT: Reports: No Symptoms. Denies: Vision Change Respiratory: Denies: Shortness of Breath, Cough Cardiovascular: Reports: Lightheadedness (when standing up), Syncope. Denies: Chest Pain GI/Abdominal: Reports: Abdominal Pain (low; no history of ulcers), Black Stool, Hematemesis, Vomiting : Denies: Dysuria Musculoskeletal: Reports: No Symptoms Skin: Reports: Pallor. Denies: Cyanosis, Jaundice, Mottled, Diaphoresis Neurological: Reports: Syncope. Denies: Confusion (at baseline), Seizure, Trouble Speaking Psychiatric: Denies: Agitation, Anxiety, Confusion Hematologic/Lymphatic: Reports: Easy Bleeding (on Eliquis). Denies: Anemia (no history of it) ED EXAM, GI/ABD - Physical Exam Exam: See Below Exam Limited By: No Limitations General Appearance: Alert, WD/WN, No Apparent Distress Eyes: Bilateral: Normal Appearance, EOMI Ears: Normal External Exam, Hearing Grossly Normal Nose: Normal Inspection, No Blood Throat/Mouth: Normal Inspection, Normal Lips, Normal Voice, No Airway Compromise Head: Atraumatic (looked closely as he says he fell backward but no evidence of trauma), Normocephalic Neck: Normal Inspection, Supple, Non-Tender, Full Range of Motion Respiratory/Chest: No Respiratory Distress, Lungs Clear, Normal Breath Sounds Cardiovascular: Regular Rate, Rhythm, No Murmur GI/Abdominal Exam: Normal Bowel Sounds, Soft, Non-Tender, No Organomegaly, No Distention Back Exam: Normal Inspection, Full Range of Motion. No: CVA Tenderness (L), CVA Tenderness (R) Extremities: Normal Inspection, Normal Range of Motion, Non-Tender Neurological: Alert, Oriented, Normal Cognition, No Motor/Sensory Deficits Psychiatric: Normal Affect, Normal Mood Skin Exam: Warm, Dry, Intact, No Rash, Pallor Course - Vital Signs Last Recorded V/S: Last Vital Signs Temp 98.0 F 02/23/19 12:08 Pulse 77 02/23/19 12:08 Resp 19 02/23/19 12:08 BP 106/30 L 02/23/19 12:08 Pulse Ox 97 02/23/19 11:53 - Orders/Labs/Meds Orders: Active Orders 24 hr Category Date Time Status Peripheral IV Care [RC] . DIRECTED Care 02/23/19 11:06 Active Verify Patient Consent Obtain [RC] ASDIRECTED Care 02/23/19 11:31 Active Sodium Chloride 0.9% [Normal Saline] 1,000 ml Med 02/23/19 12:00 Active IV ASDIRECTED Sodium Chloride 0.9% [Normal Saline] 500 ml Med 02/23/19 12:00 Active IV ASDIRECTED Sodium Chloride 0.9% [Saline Flush] Med 02/23/19 11:06 Active 10 ml FLUSH Q8HR PRN Peripheral IV Insertion Adult [OM.PC] Routine Oth 02/23/19 11:06 Ordered Transfuse RBC [Transfuse Red Blood Cells] [COMM] Stat Ot 02/23/19 11:30 Ordered Medication Orders Sodium Chloride (Normal Saline) 500 mls @ 100 mls/hr IV ASDIRECTED [facility] Last Admin: 02/23/19 11:50 Dose: 100 mls/hr Sodium Chloride (Normal Saline) 1,000 mls @ 100 mls/hr IV ASDIRECTED DANYA Last Admin: 02/23/19 11:53 Dose: 100 mls/hr Sodium Chloride (Saline Flush) 10 ml FLUSH Q8HR PRN PRN Reason: keep vein open Last Admin: 02/23/19 12:23 Dose: 10 ml Admin: 02/23/19 11:00 Dose: 10 ml Admin: 02/23/19 10:51 Dose: 10 ml Labs: Laboratory Tests 02/23/19 02/23/19 02/23/19 Range/Units 10:55 10:55 10:55 WBC 4.59 L (5.00-10.00) 10^3/uL RBC 1.32 L (4.50-6.00) 10^6/uL Hgb 4.1 L* D (13.0-17.0) g/dL Hct 12.4 L* (40.0-52.0) % MCV 93.9 H D (82.0-92.0) fL MCH 31.1 H (27.0-31.0) pg MCHC 33.1 (32.0-36.0) g/dL RDW 14.0 (11.5-14.5) % Plt Count 125 L (150-400) 10^3/uL MPV 9.7 (7.4-10.4) fL Immature Gran % (Auto) 0.4 (0.0-5.0) % Neut % (Auto) 81.1 H (50.0-70.0) % Lymph % (Auto) 14.4 L (20.0-40.0) % [place] % (Auto) 3.9 (2.0-8.0) % Eos % (Auto) 0.0 L (1.0-3.0) % Baso % (Auto) 0.2 (0.0-1.0) % Immature Gran # (Auto) 0.02 (0.00-0.50) 10^3/uL Neut # (Auto) 3.72 (2.50-7.00) 10^3/uL Lymph # (Auto) 0.66 L (1.00-4.00) 10^3/uL [place] # (Auto) 0.18 (0.10-0.80) 10^3/uL Eos # (Auto) 0.00 L (0.10-0.30) 10^3/uL Baso # (Auto) 0.01 (0.00-0.10) 10^3/uL Sodium 139 (136-145) mmol/L Potassium 4.5 (3.3-5.3) mmol/L Chloride 109 (98-115) mmol/L Carbon Dioxide 19.7 L (21.0-32.0) mmol/L Anion Gap 14.8 (5-15) mmol/L BUN 55 H* D (6-25) mg/dL Creatinine 0.95 (0.51-1.17) mg/dL Est Cr Clr Drug Dosing 56.90 mL/min Estimated GFR (MDRD) > 60 mL/min Glucose 142 H (75 - 99) mg/dL Calcium 8.6 L (8.7-10.3) mg/dL Total Bilirubin 0.6 (0.2-1.0) mg/dL AST 18 (15-37) U/L ALT 16 (12-78) U/L Alkaline Phosphatase 33 L (46-116) IU/L Total Protein 4.9 L (6.4-8.2) g/dL Albumin 2.77 L (3.00-4.80) g/dL Blood Type A POSITIVE Gel Antibody Screen Negative Crossmatch See Detail Meds: Medications Generic Name Dose Route Start Last Admin Trade Name Freq PRN Reason Stop Dose Admin Sodium Chloride 500 mls @ 100 mls/hr 02/23/19 12:00 02/23/19 11:50 Normal Saline IV 100 mls/hr ASDIRECTED DANYA Administration Sodium Chloride 1,000 mls @ 100 mls/hr 02/23/19 12:00 02/23/19 11:53 Normal Saline IV 100 mls/hr ASDIRECTED DANYA Administration Sodium Chloride 10 ml 02/23/19 11:06 02/23/19 12:23 Saline Flush FLUSH 10 ml Q8HR PRN Administration keep vein open Discontinued Medications Generic Name Dose Route Start Last Admin Trade Name Sujey PRN Reason Stop Dose Admin Sodium Chloride Confirm 02/23/19 10:55 02/23/19 11:51 Normal Saline Administered 02/23/19 10:56 Not Given Dose 1,000 mls @ as directed .ROUTE .STK-MED ONE Sodium Chloride 1,000 mls @ 999 mls/hr 02/23/19 11:06 02/23/19 11:00 Normal Saline IV 02/23/19 12:06 999 mls/hr .BOLUS ONE Administration Sodium Chloride Confirm 02/23/19 11:46 02/23/19 11:50 Normal Saline Administered 02/23/19 11:47 Not Given Dose 500 mls @ as directed .ROUTE .STK-MED ONE - Re-Assessments/Exams Free Text/Narrative Re-Assessment/Exam: 02/23/19 13:45 Hg 4.1 with blood pressure dropping. Fluids were started early with one liter bolus, then second liter at 100ml/hr due to CHF. Ordered type and cross but couldn't wait an hour so also started emergent transfusion of O+ blood as patient is positive. I ordered O neg initially but lab changed as indicated. Got on phone early with Parviz Proctor and patient was accepted by Dr. Cage hospitalist. We delayed transfer long enough to get blood started and will continue en route. Patient stable at discharge. Departure - Departure Time of Disposition: 13:44 Disposition: DC/Tfer to [facility] 02 Condition: Fair Clinical Impression: Acute blood loss anemia, Hypovolemia due to hemorrhage, Hypotension due to blood loss - Discharge Information Referrals: Maddie Hayes MD [Primary Care Provider] - Forms: ED Department Discharge - My Orders Last 24 Hours: My Active Orders 02/23/19 11:06 Peripheral IV Care [RC] . DIRECTED Sodium Chloride 0.9% [Saline Flush] 10 ml FLUSH Q8HR PRN Peripheral IV Insertion Adult [OM.PC] Routine 02/23/19 11:30 Transfuse RBC [Transfuse Red Blood Cells] [COMM] Stat 02/23/19 11:31 Verify Patient Consent Obtain [RC] ASDIRECTED 02/23/19 12:00 Sodium Chloride 0.9% [Normal Saline] 1,000 ml IV ASDIRECTED Sodium Chloride 0.9% [Normal Saline] 500 ml IV ASDIRECTED - Assessment/Plan Last 24 Hours: My Active Orders 02/23/19 11:06 Peripheral IV Care [RC] . DIRECTED Sodium Chloride 0.9% [Saline Flush] 10 ml FLUSH Q8HR PRN Peripheral IV Insertion Adult [OM.PC] Routine 02/23/19 11:30 Transfuse RBC [Transfuse Red Blood Cells] [COMM] Stat 02/23/19 11:31 Verify Patient Consent Obtain [RC] ASDIRECTED 02/23/19 12:00 Sodium Chloride 0.9% [Normal Saline] 1,000 ml IV ASDIRECTED Sodium Chloride 0.9% [Normal Saline] 500 ml IV ASDIRECTED
== END 2019-02-23 12:40 ==
LOC: KA.ED 10:51
DX: D62 Acute posthemorrhagic anemia (principal); E86.1 Hypovolemia; I95.89 Other hypotension; F41.9 Anxiety disorder, unspecified; I25.10 Atherosclerotic heart disease of native coronary artery without angina pectoris; F32.9 Major depressive disorder, single episode, unspecified; I11.0 Hypertensive heart disease with heart failure; I50.9 Heart failure, unspecified; I25.2 Old myocardial infarction; Z95.0 Presence of cardiac pacemaker; Z88.5 Allergy status to narcotic agent; Z88.0 Allergy status to penicillin; Z79.899 Other long term (current) drug therapy; Z79.01 Long term (current) use of anticoagulants
CPT/HCPCS: 36415; 36430; 80053; 85025; 86850; 86900; 86901; 86920; 86922; 96360; 99284; 99285; J7030; J7040; P9016

== ENCOUNTER 2019-05-10 15:38 | Inpatient (IN) | payer MEDICARE, BC ==
[2019-05-10] MEDS ORDERED: Trolamine Salicylate/Aloe Vera 10% Crm 85 GM Tube TOP PRN (16:49)
[2019-05-10] MEDS ORDERED: Ondansetron 4 MG Tab.DIS PO PRN (16:49)
[2019-05-10 16:56] LABS: ANION GAP 11.8 mmol/L (5-15); CHLORIDE,CL 104 mmol/L (98-115); SODIUM,NA 139 mmol/L (136-145)
[2019-05-10] MEDS: Furosemide 40 MG/4 ML VIAL IVPUSH SCH (17:48)
[2019-05-10] MEDS: FLUoxetine 10 MG Cap PO SCH (19:35)
[2019-05-10] MEDS: Carvedilol 6.25 MG Tab PO SCH (19:35)
[2019-05-10] MEDS: Tamsulosin 0.4 MG Cap.ER PO SCH (20:54)
[2019-05-10] MEDS: Pantoprazole 40 MG Tab.CR PO SCH (20:55)
[2019-05-10] MEDS: atorvaSTATin 10 MG Tab PO SCH (20:55)
[2019-05-10] MEDS: Terazosin 1 MG Cap PO SCH (20:58)
[2019-05-10] MEDS: Sodium Chloride 0.9% 10 ML Syringe FLUSH PRN (21:04)
[2019-05-10] MEDS: Acetaminophen/HYDROcodone 325-10 MG Tab PO PRN (21:07)
[2019-05-10] MEDS: Acetaminophen 325 MG Tab PO PRN (22:52)
[2019-05-11] MEDS: Acetaminophen 325 MG Tab PO PRN ×2 (02:51→22:42)
[2019-05-11] MEDS: Cholecalciferol (Vitamin D3) 25 MCG Tab PO SCH (08:26)
[2019-05-11] MEDS: Carvedilol 6.25 MG Tab PO SCH ×2 (08:26→18:32)
[2019-05-11] MEDS: Pantoprazole 40 MG Tab.CR PO SCH ×2 (08:26→20:51)
[2019-05-11] MEDS: Furosemide 40 MG/4 ML VIAL IVPUSH SCH ×2 (08:26→18:33)
[2019-05-11] MEDS: Polyethylene Glycol 3350 Powder 17 GM Packet PO SCH (08:30)
[2019-05-11 09:37] LABS: ANION GAP 14.4 mmol/L (5-15); CHLORIDE,CL 103 mmol/L (98-115); SODIUM,NA 141 mmol/L (136-145)
--- NOTE | 2019-05-11 10:51 | PN ---
05/11/2019 PATIENT NAME: SAHARA GRANADOS SUBJECTIVE: This is a 78-year-old who was admitted yesterday for congestive heart failure, swelling in the lower extremities. He has received 40 mg of IV Lasix b.i.d. and has seen some improvement already. His weight on admission was 181 pounds and 12 ounces. This morning, he is 176 and 9.6 ounces for a net loss of approximately 5.5 pounds. The patient is feeling better; however, he states he did not sleep very well last night. He states he was awake until 4 this morning. PERTINENT LABORATORY DATA: Hemoglobin was 9.2 yesterday, WBC count was 3.36, RBC was 3.21, and platelets were 141,000. Comprehensive metabolic panel shows normal electrolytes; sodium 139, potassium 4.1, calcium 8.8. Anion gap is 11.8. BUN and creatinine are normal at 20 and 0.98 with a GFR of greater than 60. BNP was 520. Total protein was 6.1, total bilirubin 1.4. The remainder of the lab values were normal. OBJECTIVE: VITAL SIGNS: Temperature is 98, pulse 62, respirations 16, blood pressure 141/65, O2 saturation 94% on room air. SKIN: Warm, dry to touch. HEART AND LUNGS: Normal. ABDOMEN: Soft, nontender. EXTREMITIES: He does have improving edema in the lower extremities with some residual pitting. IMPRESSION: 1. Congestive heart failure with lower extremity edema. This is improving slowly. 2. Deconditioning and weakness. We will have Physical Therapy to see him today. He will have lab ordered daily, CBC and CMP. We will watch his electrolytes closely with the addition of Lasix. Caio wraps will be applied to the lower extremities. 3. Atrial fibrillation, stable. 4. Benign prostatic hypertrophy, stable. He does have an indwelling catheter for accurate input and output. /[id number]/MODL
[2019-05-11] MEDS: atorvaSTATin 10 MG Tab PO SCH (20:50)
[2019-05-11] MEDS: Melatonin 3 MG Tab PO PRN (20:50)
[2019-05-11] MEDS: Tamsulosin 0.4 MG Cap.ER PO SCH (20:51)
[2019-05-11] MEDS: Terazosin 1 MG Cap PO SCH (20:52)
[2019-05-12] MEDS: Acetaminophen/HYDROcodone 325-10 MG Tab PO PRN ×2 (03:25→20:54)
[2019-05-12 08:08] LABS: ANION GAP 10.5 mmol/L (5-15); CHLORIDE,CL 103 mmol/L (98-115); SODIUM,NA 141 mmol/L (136-145)
--- NOTE | 2019-05-12 08:37 | PCM.PN ---
- General Info Date of Service: 05/12/19 Admission Dx/Problem (Free Text): CHF exacerbation secondary to medication noncompliance. - Review of Systems Systems Review Comment:: Bryant is seen today on inpatient rounds. He was admitted on 05/10/19 with significant bilateral LE edema and inability to walk secondary to this at home. He has a hx of heart failure and does not take his lasix as directed " because I hate running to the bathroom all the time". He has been admitted several times in the past for this same thing, he is diuresed and does well, he goes home and then goes right back to not taking his lasix and fluid accumulation in his legs. He is very tired this morning, he is sleeping when I arrive but he is easily arousable. He has no concerned. He states that overall he is feeling better. Weight is down 17 pounds and in the past 24 hours he has had a net fluid out of 8730. He has no concerns today. - Patient Data Vitals - Most Recent: Last Vital Signs Temp 98.4 F 05/12/19 06:44 Pulse 60 05/12/19 06:44 Resp 12 05/12/19 06:44 BP 112/50 L 05/12/19 06:44 Pulse Ox 97 05/12/19 06:44 Weight - Most Recent: 159 lb 11.2 oz I&O - Last 24 Hours: Intake & Output 05/11/19 05/12/19 05/12/19 22:59 06:59 14:59 Intake Total 970 300 Output Total 5975 1200 Balance -5005 -900 Lab Results Last 24 Hours: Laboratory Results - last 24 hr 05/11/19 05/11/19 05/12/19 Range/Units 09:10 09:10 07:15 WBC 4.12 L 4.44 L (5.00-10.00) 10^3/uL RBC 3.31 L 3.27 L (4.50-6.00) 10^6/uL Hgb 9.5 L 9.4 L (13.0-17.0) g/dL Hct 28.9 L 28.2 L (40.0-52.0) % MCV 87.3 86.2 (82.0-92.0) fL MCH 28.7 28.7 (27.0-31.0) pg MCHC 32.9 33.3 (32.0-36.0) g/dL RDW 15.7 H 15.7 H (11.5-14.5) % Plt Count 156 154 (150-400) 10^3/uL MPV 10.0 10.0 (7.4-10.4) fL Immature Gran % (Auto) 0.2 0.0 (0.0-5.0) % Neut % (Auto) 63.6 58.3 (50.0-70.0) % Lymph % (Auto) 20.9 24.1 (20.0-40.0) % [place] % (Auto) 11.9 H 13.5 H (2.0-8.0) % Eos % (Auto) 2.7 3.4 H (1.0-3.0) % Baso % (Auto) 0.7 0.7 (0.0-1.0) % Immature Gran # (Auto) 0.01 0.00 (0.00-0.50) 10^3/uL Neut # (Auto) 2.62 2.59 (2.50-7.00) 10^3/uL Lymph # (Auto) 0.86 L 1.07 (1.00-4.00) 10^3/uL [place] # (Auto) 0.49 0.60 (0.10-0.80) 10^3/uL Eos # (Auto) 0.11 0.15 (0.10-0.30) 10^3/uL Baso # (Auto) 0.03 0.03 (0.00-0.10) 10^3/uL Sodium 141 (136-145) mmol/L Potassium 3.5 (3.3-5.3) mmol/L Chloride 103 (98-115) mmol/L Carbon Dioxide 27.1 (21.0-32.0) mmol/L Anion Gap 14.4 (5-15) mmol/L BUN 17 (6-25) mg/dL Creatinine 1.01 (0.51-1.17) mg/dL Est Cr Clr Drug Dosing 55.45 mL/min Estimated GFR (MDRD) > 60 mL/min Glucose 126 H (75 - 99) mg/dL Calcium 8.9 (8.7-10.3) mg/dL Total Bilirubin 1.5 H (0.2-1.0) mg/dL AST 18 (15-37) U/L ALT 17 (12-78) U/L Alkaline Phosphatase 73 (46-116) IU/L Total Protein 6.3 L (6.4-8.2) g/dL Albumin 3.37 (3.00-4.80) g/dL 05/12/19 Range/Units 07:15 WBC (5.00-10.00) 10^3/uL RBC (4.50-6.00) 10^6/uL Hgb (13.0-17.0) g/dL Hct (40.0-52.0) % MCV (82.0-92.0) fL MCH (27.0-31.0) pg MCHC (32.0-36.0) g/dL RDW (11.5-14.5) % Plt Count (150-400) 10^3/uL MPV (7.4-10.4) fL Immature Gran % (Auto) (0.0-5.0) % Neut % (Auto) (50.0-70.0) % Lymph % (Auto) (20.0-40.0) % [place] % (Auto) (2.0-8.0) % Eos % (Auto) (1.0-3.0) % Baso % (Auto) (0.0-1.0) % Immature Gran # (Auto) (0.00-0.50) 10^3/uL Neut # (Auto) (2.50-7.00) 10^3/uL Lymph # (Auto) (1.00-4.00) 10^3/uL [place] # (Auto) (0.10-0.80) 10^3/uL Eos # (Auto) (0.10-0.30) 10^3/uL Baso # (Auto) (0.00-0.10) 10^3/uL Sodium 141 (136-145) mmol/L Potassium 3.4 (3.3-5.3) mmol/L Chloride 103 (98-115) mmol/L Carbon Dioxide 30.9 (21.0-32.0) mmol/L Anion Gap 10.5 (5-15) mmol/L BUN 18 (6-25) mg/dL Creatinine 1.09 (0.51-1.17) mg/dL Est Cr Clr Drug Dosing 51.38 mL/min Estimated GFR (MDRD) > 60 mL/min Glucose 91 (75 - 99) mg/dL Calcium 9.0 (8.7-10.3) mg/dL Total Bilirubin 1.7 H (0.2-1.0) mg/dL AST 19 (15-37) U/L ALT 16 (12-78) U/L Alkaline Phosphatase 69 (46-116) IU/L Total Protein 5.8 L (6.4-8.2) g/dL Albumin 3.14 (3.00-4.80) g/dL Med Orders - Current: Current Medications Acetaminophen (Tylenol) 325 - 650 mg PO Q4H PRN PRN Reason: Pain Last Admin: 05/11/19 22:42 Dose: 650 mg Hydrocodone Bitart/Acetaminophen ([place] 325-10 Mg) 1 tab PO BID PRN PRN Reason: Pain Last Admin: 05/12/19 03:25 Dose: 1 tab Atorvastatin Calcium (Lipitor) 20 mg PO BEDTIME [facility] Last Admin: 05/11/19 20:50 Dose: 20 mg Carvedilol (Coreg) 6.25 mg PO BIDMEALS [facility] Last Admin: 05/11/19 18:32 Dose: 6.25 mg Cholecalciferol (Vitamin D3) 125 mcg PO DAILY [facility] Last Admin: 05/11/19 08:26 Dose: 125 mcg Fluoxetine HCl (Prozac) 20 mg PO MOWEFR [facility] Last Admin: 05/10/19 19:35 Dose: 20 mg Furosemide (Lasix) 40 mg IVPUSH BIDDIURETIC [facility] Last Admin: 05/11/19 18:33 Dose: 40 mg Melatonin (Melatonin) 3 mg PO BEDTIME PRN PRN Reason: Sleep Last Admin: 05/11/19 20:50 Dose: 3 mg Non-Formulary Medication (Lidocaine Hcl [Aspercreme]) 1 applic TOP BEDTIME PRN PRN Reason: back pain Ondansetron HCl (Zofran Odt) 4 mg PO Q6H PRN PRN Reason: Nausea Pantoprazole Sodium (Protonix) 40 mg PO BID [facility] Last Admin: 05/11/19 20:51 Dose: 40 mg Polyethylene Glycol (Miralax) 17 gm PO DAILY [facility] Last Admin: 05/11/19 08:30 Dose: 17 gm Sodium Chloride (Saline Flush) 10 ml FLUSH Q8HR PRN PRN Reason: keep vein open Last Admin: 05/10/19 21:04 Dose: 10 ml Tamsulosin HCl (Flomax) 0.4 mg PO BEDTIME [facility] Last Admin: 05/11/19 20:51 Dose: 0.4 mg Terazosin HCl (Hytrin) 2 mg PO BEDTIME [facility] Last Admin: 05/11/19 20:52 Dose: 2 mg - Exam General: Alert, Oriented, Cooperative, No Acute Distress Lungs: Clear to Auscultation, Normal Respiratory Effort Cardiovascular: No Murmurs, Irregular Rhythm GI/Abdominal Exam: Normal Bowel Sounds Extremities: No Pedal Edema - Problem List & Annotations (1) Acute exacerbation of CHF (congestive heart failure) SNOMED Code(s): 380545671, 18660769311625 Code(s): I50.9 - HEART FAILURE, UNSPECIFIED Status: Chronic Current Visit : No Qualifiers: Heart failure type: unspecified Qualified Code(s): I50.9 - Heart failure, unspecified (2) Ischemic dilated cardiomyopathy SNOMED Code(s): 142166546 Code(s): I25.5 - ISCHEMIC CARDIOMYOPATHY; I42.0 - DILATED CARDIOMYOPATHY Status: Chronic Current Visit: No (3) Noncompliance w/medication treatment due to intermit use of medication SNOMED Code(s): 377503493 Code(s): Z91.14 - PATIENT'S OTHER NONCOMPLIANCE WITH MEDICATION REGIMEN Status: Chronic Current Visit: No (4) Weakness SNOMED Code(s): 52258882 Code(s): R53.1 - WEAKNESS Status: Chronic Current Visit: No (5) Atrial fibrillation SNOMED Code(s): 49479807 Code(s): I48.91 - UNSPECIFIED ATRIAL FIBRILLATION Status: Acute Current Visit: Yes (6) Acid reflux SNOMED Code(s): 232344997 Code(s): K21.9 - GASTRO-ESOPHAGEAL REFLUX DISEASE WITHOUT ESOPHAGITIS Status: Acute Current Visit: Yes (7) Chronic pain SNOMED Code(s): 83333594 Code(s): G89.29 - OTHER CHRONIC PAIN Status: Acute Current Visit: Yes (8) Osteoarthritis SNOMED Code(s): 620068831 Code(s): M19.90 - UNSPECIFIED OSTEOARTHRITIS, UNSPECIFIED SITE Status: Acute Current Visit: Yes (9) Constipation SNOMED Code(s): 79559821 Code(s): K59.00 - CONSTIPATION, UNSPECIFIED Status: Acute Current Visit: Yes (10) Hyperlipidemia SNOMED Code(s): 59638508 Code(s): E78.5 - HYPERLIPIDEMIA, UNSPECIFIED Status: Acute Current Visit : Yes (11) BPH (benign prostatic hyperplasia) SNOMED Code(s): 249467304 Code(s): N40.0 - BENIGN PROSTATIC HYPERPLASIA WITHOUT LOWER URINRY TRACT SYMP Status: Acute Current Visit: Yes - Problem List Review Problem List Initiated/Reviewed/Updated: Yes - Assessment Assessment:: CHF exacerbation secondary to medication noncompliance. Weakness OA with associated chronic pain Acid reflux A-fib Depression Constipation Hyperlipidemia BPH - Plan Plan:: CHF exacerbation secondary to medication noncompliance. Markedly improved with IV furosemide. May need to consider having a bedside urinal or something close by for him at home so improve his compliance with lasix to prevent hospitalizations. Weakness. PT to eval and treat, may need NH placement for rehab. OA with associated chronic pain. Continue hydrocodone PRN. Acid reflux. Continue omeprazole. A-fib. Rate controlled. Depression. Continue fluoxetine. Constipation. Continue Miralax as needed. Hyperlipidemia. Continue atorvastatin. BPH. Continue tamsulosin and terazosin.
[2019-05-12] MEDS: Polyethylene Glycol 3350 Powder 17 GM Packet PO SCH (09:15)
[2019-05-12] MEDS: Pantoprazole 40 MG Tab.CR PO SCH ×2 (09:15→20:53)
[2019-05-12] MEDS: Cholecalciferol (Vitamin D3) 25 MCG Tab PO SCH (09:15)
[2019-05-12] MEDS: Carvedilol 6.25 MG Tab PO SCH ×2 (09:16→17:16)
[2019-05-12] MEDS: Furosemide 40 MG/4 ML VIAL IVPUSH SCH ×2 (09:16→17:16)
[2019-05-12] MEDS: FLUoxetine 10 MG Cap PO SCH (17:16)
[2019-05-12] MEDS: Terazosin 1 MG Cap PO SCH (20:53)
[2019-05-12] MEDS: Tamsulosin 0.4 MG Cap.ER PO SCH (20:54)
[2019-05-12] MEDS: atorvaSTATin 10 MG Tab PO SCH (20:54)
[2019-05-12] MEDS: Melatonin 3 MG Tab PO PRN (20:54)
[2019-05-12] MEDS: Acetaminophen 325 MG Tab PO PRN (23:52)
[2019-05-13 07:50] LABS: ANION GAP 11.1 mmol/L (5-15); CHLORIDE,CL 100 mmol/L (98-115); SODIUM,NA 138 mmol/L (136-145)
[2019-05-13] MEDS: Polyethylene Glycol 3350 Powder 17 GM Packet PO SCH (08:42)
[2019-05-13] MEDS: Cholecalciferol (Vitamin D3) 25 MCG Tab PO SCH (08:42)
[2019-05-13] MEDS: Pantoprazole 40 MG Tab.CR PO SCH (08:43)
[2019-05-13] MEDS: Carvedilol 6.25 MG Tab PO SCH (08:43)
[2019-05-13] MEDS: Furosemide 40 MG/4 ML VIAL IVPUSH SCH (08:44)
[2019-05-13] MEDS: Sodium Chloride 0.9% 10 ML Syringe FLUSH PRN (08:45)
[2019-05-13 10:09] VITALS: PULSE 72
[2019-05-13 11:34] VITALS: BP 109/59
--- NOTE | 2019-05-14 09:39 | DISCH ---
HOSPITAL COURSE: This is a 78-year-old male who was admitted from the clinic on 05/10/2019, with congestive heart failure and lower extremity edema. He has lost 35 pounds since being in the hospital with intravenous Lasix. The patient is noncompliant with taking Lasix at home. Lower extremity edema has improved considerably. He is also deconditioned and weak. We did have physical therapy evaluate him. The plan is to keep him here for swing bed for strengthening. There is a request from the patient's that he may continue with having a Mon catheter intact to make it easier for the patient to take his Lasix and not have to worry about going to the bathroom. This will be considered. Lab work has stayed stable with a hemoglobin of 9.2 to 9.7. BUN and creatinine have been normal with a GFR greater than 60. Liver function tests have been fine. His potassium has been normal at 3.4. The patient is having difficulty sleeping and takes hydrocodone at bedtime for the same. PHYSICAL EXAMINATION: VITAL SIGNS: Temp is 98.2, pulse 72, respirations 20, blood pressure 109/59, O2 saturation is 96% on room air. SKIN: Warm and dry to touch. CARDIAC: Reveals S1, S2 to be normal. Rate and rhythm are regular. No murmur, click, or gallop is auscultated. LUNGS: Clear without rales, wheezes, or rhonchi. There is minimal to trace pedal edema at this time. IMPRESSION: 1. Congestive heart failure with lower extremity edema. This is improving. This has improved considerably. We will change him from IV Lasix 40 mg b.i.d. to oral Lasix 40 mg daily. He will be discharged with this as well. 2. Deconditioning and weakness. Physical therapy will be working with him for strengthening. 3. Atrial fibrillation. He does have a pacemaker intact. 4. BPH. This is stable at this time. /[id number]/MODL
== END 2019-05-13 15:43 | disposition swing bed (61) | DRG 293 ==
LOC: UNDOADMIN 15:38 → KA.MS 15:38
DX: I50.23 Acute on chronic systolic (congestive) heart failure (principal); I48.91 Unspecified atrial fibrillation; N40.0 Benign prostatic hyperplasia without lower urinary tract symptoms; K21.9 Gastro-esophageal reflux disease without esophagitis; F32.9 Major depressive disorder, single episode, unspecified; M19.90 Unspecified osteoarthritis, unspecified site; G89.29 Other chronic pain; E78.00 Pure hypercholesterolemia, unspecified; I25.5 Ischemic cardiomyopathy; Z66 Do not resuscitate; K59.00 Constipation, unspecified; Z95.0 Presence of cardiac pacemaker; Z79.899 Other long term (current) drug therapy; Z91.14 Patient's other noncompliance with medication regimen; Z88.0 Allergy status to penicillin; Z88.8 Allergy status to other drugs, medicaments and biological substances
CPT/HCPCS: 36415; 51702; 80053; 83880; 85025; 97110-GP; 97162-GP; A9270-GY; J1940

== ENCOUNTER 2019-05-13 13:12 | Inpatient (IN) | payer MEDICARE, BC ==
[2019-05-13] MEDS ORDERED: Ondansetron 4 MG Tab.DIS PO PRN ×2 (15:43→15:47)
[2019-05-13] MEDS ORDERED: Acetaminophen/HYDROcodone 325-10 MG Tab PO PRN (15:43)
[2019-05-13] MEDS ORDERED: Sodium Chloride 0.9% 10 ML Syringe FLUSH PRN ×2 (15:43)
[2019-05-13] MEDS ORDERED: Trolamine Salicylate/Aloe Vera 10% Crm 85 GM Tube TOP PRN (15:43)
[2019-05-13] MEDS ORDERED: LIDOCAINE HCL TOP PRN (15:47)
--- NOTE | 2019-05-13 17:30 | HP ---
SUBJECTIVE: This is a 78-year-old male who was admitted to the clinic on 05/10/2019 with increased lower extremity edema. He is noncompliant with his Lasix at home and has not been taking it. His admission weight was 181 pounds and today he weighs 156. He has lost 35 pounds since being hospitalized. The patient has improved considerably. He has a history of atrial fibrillation and does have an implanted pacemaker. He does have a history of benign prostatic hypertrophy and has a Mon catheter intact for accurate I and O. He is quite deconditioned and weak. He will have physical therapy while he is in swing bed. Plan is to discharge him home, possibly with a Mon catheter. OBJECTIVE: VITAL SIGNS: Temperature 98.2, pulse 72, respirations 20, blood pressure 109/59, O2 saturation is 96% on room air. SKIN: Warm and dry to touch. CARDIAC: Reveals S1, S2 to be normal. Rate and rhythm are regular. Does have an implanted pacemaker. LUNGS: Clear without rales, wheezes, or rhonchi. EXTREMITIES: There is trace to minimal pedal edema. IMPRESSION: 1. Congestive heart failure with lower extremity edema. This is improved considerably with IV Lasix. He has a net weight loss of 35 pounds since his admission. He will be kept in swing bed for strengthening. 2. Atrial fibrillation with pacemaker. This is stable at this time. 3. Deconditioning and weakness. He will be seen by Physical Therapy to hopefully strengthen and improve his ambulation. 4. Benign prostatic hypertrophy. He does have issues with voiding and this is one of the reason why does not take his Lasix at home. We will entertain sending him home with a Mon catheter. The benefits may outweigh the risks at this time. /[id number]/MODL
[2019-05-13] MEDS ORDERED: Carvedilol 6.25 MG Tab PO SCH (18:00)
[2019-05-13] MEDS: Carvedilol 6.25 MG Tab PO SCH (18:57)
[2019-05-13] MEDS ORDERED: Tamsulosin 0.4 MG Cap.ER PO SCH (21:00)
[2019-05-13] MEDS ORDERED: atorvaSTATin 10 MG Tab PO SCH (21:00)
[2019-05-13] MEDS ORDERED: Pantoprazole 40 MG Tab.CR PO SCH (21:00)
[2019-05-13] MEDS ORDERED: Terazosin 1 MG Cap PO SCH (21:00)
[2019-05-13] MEDS: Tamsulosin 0.4 MG Cap.ER PO SCH (21:05)
[2019-05-13] MEDS: Terazosin 1 MG Cap PO SCH (21:05)
[2019-05-13] MEDS: atorvaSTATin 10 MG Tab PO SCH (21:05)
[2019-05-13] MEDS: Acetaminophen/HYDROcodone 325-10 MG Tab PO PRN (21:06)
[2019-05-13] MEDS: Pantoprazole 40 MG Tab.CR PO SCH (21:06)
[2019-05-13] MEDS: Melatonin 3 MG Tab PO PRN (21:06)
[2019-05-14] MEDS: Acetaminophen 325 MG Tab PO PRN (00:49)
[2019-05-14 08:48] LABS: ANION GAP 11.1 mmol/L (5-15); CHLORIDE,CL 99 mmol/L (98-115); SODIUM,NA 137 mmol/L (136-145)
[2019-05-14] MEDS ORDERED: Polyethylene Glycol 3350 Powder 17 GM Packet PO SCH (09:00)
[2019-05-14] MEDS: Carvedilol 6.25 MG Tab PO SCH ×2 (09:05→18:29)
[2019-05-14] MEDS: Furosemide 40 MG Tab PO SCH (09:06)
[2019-05-14] MEDS: Cholecalciferol (Vitamin D3) 25 MCG Tab PO SCH (09:06)
[2019-05-14] MEDS: Pantoprazole 40 MG Tab.CR PO SCH ×2 (09:06→21:18)
[2019-05-14] MEDS: FLUoxetine 10 MG Cap PO SCH (09:06)
[2019-05-14] MEDS: Polyethylene Glycol 3350 Powder 17 GM Packet PO SCH (09:07)
[2019-05-14] MEDS ORDERED: FLUoxetine 10 MG Cap PO SCH (15:47)
[2019-05-14] MEDS: Acetaminophen/HYDROcodone 325-10 MG Tab PO PRN (21:18)
[2019-05-14] MEDS: Tamsulosin 0.4 MG Cap.ER PO SCH (21:18)
[2019-05-14] MEDS: Terazosin 1 MG Cap PO SCH (21:18)
[2019-05-14] MEDS: atorvaSTATin 10 MG Tab PO SCH (21:18)
[2019-05-14] MEDS: Melatonin 3 MG Tab PO PRN (21:18)
[2019-05-15] MEDS: Acetaminophen 325 MG Tab PO PRN (05:41)
[2019-05-15 08:14] LABS: CHLORIDE,CL 101 mmol/L (98-115); SODIUM,NA 138 mmol/L (136-145)
[2019-05-15] MEDS: Polyethylene Glycol 3350 Powder 17 GM Packet PO SCH (08:34)
[2019-05-15] MEDS: Cholecalciferol (Vitamin D3) 25 MCG Tab PO SCH (08:34)
[2019-05-15] MEDS: Pantoprazole 40 MG Tab.CR PO SCH ×2 (08:35→21:30)
[2019-05-15] MEDS: Furosemide 40 MG Tab PO SCH (08:35)
[2019-05-15] MEDS: Carvedilol 6.25 MG Tab PO SCH ×2 (08:35→18:02)
[2019-05-15] MEDS: atorvaSTATin 10 MG Tab PO SCH (21:29)
[2019-05-15] MEDS: Melatonin 3 MG Tab PO PRN (21:30)
[2019-05-15] MEDS: Tamsulosin 0.4 MG Cap.ER PO SCH (21:30)
[2019-05-15] MEDS: Terazosin 1 MG Cap PO SCH (21:30)
[2019-05-15] MEDS: Acetaminophen/HYDROcodone 325-10 MG Tab PO PRN (21:30)
[2019-05-16] MEDS: Polyethylene Glycol 3350 Powder 17 GM Packet PO SCH (08:26)
[2019-05-16] MEDS: Furosemide 40 MG Tab PO SCH (08:26)
[2019-05-16] MEDS: Pantoprazole 40 MG Tab.CR PO SCH ×2 (08:26→21:38)
[2019-05-16] MEDS: Carvedilol 6.25 MG Tab PO SCH ×2 (08:27→17:23)
[2019-05-16] MEDS: Cholecalciferol (Vitamin D3) 25 MCG Tab PO SCH (08:31)
[2019-05-16] MEDS: atorvaSTATin 10 MG Tab PO SCH (21:38)
[2019-05-16] MEDS: Melatonin 3 MG Tab PO PRN (21:38)
[2019-05-16] MEDS: Acetaminophen/HYDROcodone 325-10 MG Tab PO PRN (21:38)
[2019-05-16] MEDS: Tamsulosin 0.4 MG Cap.ER PO SCH (21:38)
[2019-05-16] MEDS: Terazosin 1 MG Cap PO SCH (21:41)
[2019-05-17] MEDS: FLUoxetine 10 MG Cap PO SCH (08:36)
[2019-05-17] MEDS: Polyethylene Glycol 3350 Powder 17 GM Packet PO SCH (08:36)
[2019-05-17] MEDS: Pantoprazole 40 MG Tab.CR PO SCH ×2 (08:36→20:50)
[2019-05-17] MEDS: Cholecalciferol (Vitamin D3) 25 MCG Tab PO SCH (08:36)
[2019-05-17] MEDS: Furosemide 40 MG Tab PO SCH (08:36)
[2019-05-17] MEDS: Carvedilol 6.25 MG Tab PO SCH ×2 (08:37→17:55)
[2019-05-17] MEDS: atorvaSTATin 10 MG Tab PO SCH (20:48)
[2019-05-17] MEDS: Tamsulosin 0.4 MG Cap.ER PO SCH (20:48)
[2019-05-17] MEDS: Terazosin 1 MG Cap PO SCH (20:48)
[2019-05-17] MEDS: Acetaminophen/HYDROcodone 325-10 MG Tab PO PRN (20:50)
[2019-05-17] MEDS: Melatonin 3 MG Tab PO PRN (20:50)
[2019-05-17] MEDS: Acetaminophen 325 MG Tab PO PRN (20:51)
[2019-05-17 20:59] LABS: ANION GAP 11.8 mmol/L (5-15); CHLORIDE,CL 98 mmol/L (98-115); SODIUM,NA 134 mmol/L (136-145)
[2019-05-17] MEDS: Sulfamethoxazole/Trimethoprim 800-160 MG Tab PO SCH (22:05)
[2019-05-18] MEDS: Acetaminophen 325 MG Tab PO PRN (01:01)
[2019-05-18 07:48] LABS: ANION GAP 11.5 mmol/L (5-15); CHLORIDE,CL 101 mmol/L (98-115); SODIUM,NA 137 mmol/L (136-145)
[2019-05-18] MEDS: Polyethylene Glycol 3350 Powder 17 GM Packet PO SCH (08:13)
[2019-05-18] MEDS: Sulfamethoxazole/Trimethoprim 800-160 MG Tab PO SCH ×2 (08:14→20:46)
[2019-05-18] MEDS: Pantoprazole 40 MG Tab.CR PO SCH ×2 (08:14→20:47)
[2019-05-18] MEDS: Cholecalciferol (Vitamin D3) 25 MCG Tab PO SCH (08:14)
[2019-05-18] MEDS: Furosemide 40 MG Tab PO SCH (08:14)
[2019-05-18] MEDS: Carvedilol 6.25 MG Tab PO SCH ×2 (11:25→17:59)
--- NOTE | 2019-05-18 11:32 | PN ---
05/18/2019 PATIENT NAME: SAHARA GRANADOS SUBJECTIVE: This is a 78-year-old male who was admitted from the clinic into acute care on 05/10/2019, with increased lower extremity edema. He was transferred to swing bed and has been doing well. He has basically lost 35 pounds since being hospitalized. Primary admission diagnosis was congestive heart failure with lower extremity edema. He did not have any signs of pulmonary edema. He does have a history of atrial fibrillation with a pacemaker. He was quite deconditioned and weak when he came into the hospital and physical therapy has been working with him. They feel that he has made significant improvement. The patient also has benign prostatic hypertrophy and has an indwelling Mon catheter at this time. Last evening, the patient developed a fever of 102. Dr. Maddie Ventura was notified and labs were drawn at that time. White count was normal at 7.6, hemoglobin was 10.1. He did have 75% neutrophils. Chemistries were normal with the exception of a slightly low sodium of 134, glucose of 114. UA was obtained which shows a large amount of occult blood. Positive for urine nitrite. Greater than 100 rbc's per high-powered field, greater than 100 wbc's per high- powered field, and moderate bacteria. Cultures are pending. The patient had lab work drawn this morning to include a CBC, CMP, and the values are basically stable. OBJECTIVE: VITAL SIGNS: On examination temp is 99.1 this morning, pulse is 66, respirations 20, blood pressure 102/42, O2 saturation is 95% on room air. SKIN: Warm and dry to touch. CARDIAC: Reveals S1, S2 to be normal. Rate and rhythm are regular. No murmur, click, or gallop are auscultated. LUNGS: Clear without rales, wheezes, or rhonchi. He does have just a trace of pedal edema. IMPRESSION: 1. Congestive heart failure with lower extremity edema, greatly improved with a 35-pound weight loss since admission. 2. Atrial fibrillation with pacemaker. This is stable. 3. Deconditioning and weakness. He has improved with physical therapy and actually has been cleared for discharge. 4. Urinary tract infection, most likely from indwelling Mon catheter. He is being treated at this time with Bactrim DS b.i.d. Urine and blood cultures are pending. Our plan was to discharge him today. However, with this new fever and urosepsis, we will most likely keep him for a couple more days. I will discuss this with the patient's when she comes to visit today. The patient does seem to be stable today. /[id number]/MODL
[2019-05-18] MEDS ORDERED: guaiFENesin/Dextromethorphan 100-10 MG/5 ML Soln 5 ML Cup PO PRN (20:01)
[2019-05-18] MEDS: Melatonin 3 MG Tab PO PRN (20:46)
[2019-05-18] MEDS: Acetaminophen/HYDROcodone 325-10 MG Tab PO PRN (20:46)
[2019-05-18] MEDS: Tamsulosin 0.4 MG Cap.ER PO SCH (20:46)
[2019-05-18] MEDS: atorvaSTATin 10 MG Tab PO SCH (20:47)
[2019-05-18] MEDS: Terazosin 1 MG Cap PO SCH (20:47)
[2019-05-18] MEDS: Phenazopyridine 100 MG Tab PO SCH (20:51)
[2019-05-18] MEDS ORDERED: Phenazopyridine 100 MG Tab PO SCH (21:00)
[2019-05-19] MEDS: FLUoxetine 10 MG Cap PO SCH (07:56)
[2019-05-19] MEDS: Carvedilol 6.25 MG Tab PO SCH ×2 (08:01→17:54)
[2019-05-19] MEDS: Pantoprazole 40 MG Tab.CR PO SCH ×2 (08:51→21:23)
[2019-05-19] MEDS: Sulfamethoxazole/Trimethoprim 800-160 MG Tab PO SCH ×2 (08:52→21:23)
[2019-05-19] MEDS: Furosemide 40 MG Tab PO SCH (08:52)
[2019-05-19] MEDS: Polyethylene Glycol 3350 Powder 17 GM Packet PO SCH (08:52)
[2019-05-19] MEDS: Cholecalciferol (Vitamin D3) 25 MCG Tab PO SCH (08:53)
[2019-05-19] MEDS: Phenazopyridine 100 MG Tab PO SCH ×3 (08:53→21:24)
[2019-05-19] MEDS: Tamsulosin 0.4 MG Cap.ER PO SCH (21:23)
[2019-05-19] MEDS: atorvaSTATin 10 MG Tab PO SCH (21:24)
[2019-05-19] MEDS: Terazosin 1 MG Cap PO SCH (21:26)
[2019-05-19] MEDS: Acetaminophen/HYDROcodone 325-10 MG Tab PO PRN (22:07)
[2019-05-19] MEDS: Melatonin 3 MG Tab PO PRN (22:08)
[2019-05-20] MEDS: Carvedilol 6.25 MG Tab PO SCH (07:54)
[2019-05-20 08:01] VITALS: BP 115/60; PULSE 77
[2019-05-20] MEDS: Polyethylene Glycol 3350 Powder 17 GM Packet PO SCH (08:57)
[2019-05-20] MEDS: Phenazopyridine 100 MG Tab PO SCH (08:57)
[2019-05-20] MEDS: Sulfamethoxazole/Trimethoprim 800-160 MG Tab PO SCH (08:58)
[2019-05-20] MEDS: Pantoprazole 40 MG Tab.CR PO SCH (08:58)
[2019-05-20] MEDS: Furosemide 40 MG Tab PO SCH (08:58)
[2019-05-20] MEDS: Cholecalciferol (Vitamin D3) 25 MCG Tab PO SCH (08:59)
--- NOTE | 2019-05-21 08:58 | DISCH ---
HOSPITAL COURSE: He is being discharged from swing bed today. He was admitted into acute care on 05/10/2019, with increased lower extremity edema. He was transferred to swing bed on 05/13/2019, and has been doing well. He has basically lost over 35 pounds with a weight today of 153. His dry weight is approximately 156. We changed his dosing on furosemide from 20 mg b.i.d. to 40 mg daily. He did have an indwelling Mon catheter for the majority of his swing bed stay. On 05/17/2019, the patient developed a fever of 102. Dr. Maddie Ventura was notified and labs were drawn at the time. His white count was normal. He did have 75% neutrophils. UA was positive for urinary tract infection. Blood cultures were drawn which were negative for growth after two days. Urine culture showed gram-negative rods, oxidase negative, greater than 100,000 colonies per high-powered field. Final ID and sensitivity are pending. The patient last had lab work drawn on 05/18/2019. All values basically stable from previous lab draws. His Mon catheter was discontinued on 05/17/2019, when it was found that he had a urinary tract infection. Since his Mon has been discontinued, the patient has complained of dysuria as well as urinary frequency. He has had episodes of incontinence. He was started on Pyridium, which was helpful. He would like to be discharged with a Mon catheter indwelling. The Dr. Ventura consulted with [facility] regarding sending this patient home with an indwelling Mon catheter. It was recommended that the patient if he goes home with the indwelling Mon catheter that it be temporary. Urology consultation was recommended as well. The patient was quite deconditioned and weak upon admission. He has done well with physical therapy and has been cleared for discharge by the physical therapist. PHYSICAL EXAMINATION: VITAL SIGNS: Temp is 97.8, pulse 77, respirations 20, blood pressure 113/60, oxygen saturation 96% on room air. His weight is 153 pounds. SKIN: Warm and dry to touch. Color pale. CARDIAC: Reveals S1, S2 to be normal. Rate and rhythm are regular. No murmur, click, or gallop is auscultated. There is evidence of a pacemaker in the left upper chest. LUNGS: Clear without rales, wheezes, or rhonchi. ABDOMEN: Soft, nontender. Bowel sounds present in all four quadrants. There is minimal pedal edema. IMPRESSION: 1. Congestive heart failure with lower extremity edema. This has improved considerably with Lasix. He will be discharged on Lasix 40 mg daily. Mon catheter was re-inserted temporarily. He will be scheduled for Urology consultation. He is back to his dry weight traction. He is below his dry weight at 153 pounds. His dry weight is approximately 156 pounds. 2. Atrial fibrillation with pacemaker. This is stable at this time. 3. Deconditioning and weakness. He has been seen by Physical Therapy and has improved considerably. 4. BPH. Urology consultation pending. 5. Noncompliance at home. The patient is agreeable to take his medications as prescribed. He was discharged into the care of his . He will follow up with me in 7-10 days. Urology consultation will be scheduled as soon as possible. /[id number]/MODL
== END 2019-05-20 12:45 | disposition home or self-care (01) | DRG 293 ==
LOC: KA.MS 15:43
PROC: 0T9B70Z Drainage of Bladder with Drainage Device, Via Natural or Artificial Opening (ICD-10-PCS; principal; 2019-05-20)
DX: I50.9 Heart failure, unspecified (principal); T83.511A Infection and inflammatory reaction due to indwelling urethral catheter, initial encounter; I48.91 Unspecified atrial fibrillation; N40.0 Benign prostatic hyperplasia without lower urinary tract symptoms; Z95.0 Presence of cardiac pacemaker; Z91.19 Patient's noncompliance with other medical treatment and regimen; Z23 Encounter for immunization
CPT/HCPCS: 36415; 51701; 51702; 51798; 80048; 80053; 81001; 85007; 85025; 85027; 87040; 87086; 87088; 87186; 90662; 97110-GP; 97162-GP; 97530-GP; A9270-GY; G0008

== ENCOUNTER 2021-02-13 17:49 | Emergency (ER) | payer MEDICARE, BC ==
--- NOTE | 2021-02-13 18:00 | EDM.PDOC ---
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 No noted shortness of breath, and no chest pain events. His states that in the past week there have been episodes occurring at night with more confusion and irritability. He sleeps until nearly And then is up until in the 1 to 2 AM with activity elevate disorientated state. There is been no self harm attempt but has become somewhat cantankerous with irr itation when confronted or attempting to redirect his activity. He is becoming more lethargic at times with less energy as well as less cooperation. Increased gradual demise of chronic conditions is main reason for being brought in this evening for evaluation. Discussion on hospice status as it had not been officially addressed or documented, but is noted there is a 2018 advanced directive for DNR/DNI that his states is still considered active and appropriate. There has been no exposures or risk factors for COVID-19. Onset: Unknown/Unsure Duration: Week(s):, Chronic, Getting Worse Severity: Moderate Improves with: Reports: None Associated Symptoms: Reports: Confusion, Loss of Appetite, Malaise, Weakness - Related Data Allergies Allergy/AdvReac Type Severity Reaction Status Date / Time hydromorphone HCl Allergy Confusion Verified 02/13/21 18:10 [From Dilaudid] penicillin Allergy Hives Verified 02/13/21 18:10 Home Meds: Home Meds carvediloL [Carvedilol] 6.25 mg PO BIDMEALS 02/27/18 [History] FLUoxetine [PROzac] 20 mg PO SUMOWEFR 06/21/18 [History] Hydrocodone/Acetaminophen [Hydrocodone-Acetamin 10-325 mg] 1 tab PO TID PRN 06/21/18 [History] Tamsulosin [Flomax] 0.4 mg PO BEDTIME 06/21/18 [History] Terazosin [Hytrin] 2 mg PO BEDTIME 06/21/18 [History] Pantoprazole Sodium 40 mg PO DAILY 05/10/19 [History] polyethylene glycoL 3350 [MiraLAX] 17 gram PO DAILY 05/10/19 [History] Furosemide [Lasix] 40 mg PO DAILY #30 tablet 05/20/19 [Rx] Imiquimod [Aldara 5% Crm] 1 each [facility] 02/13/21 [History] Past Medical History HEENT History: Reports: Cataract, Hard of Hearing Other HEENT History: Hydrocephalous Cardiovascular History: Reports: Bypass, CAD, Heart Failure, High Cholesterol, Hypertension, [place], Pacemaker Respiratory History: Reports: Intubation, Previous Gastrointestinal History: Reports: Chronic Constipation Other Gastrointestinal History: twisted colon with surgical removal Genitourinary History: Reports: BPH, Prostate Disorder, Retention, Urinary Other Genitourinary History: urgency Musculoskeletal History: Reports: Arthritis Other Musculoskeletal History: shuffled gait, falls easily, unsteady frequently Neurological History: Reports: Other (See Below) Other Neuro History: Dizziness; states he is forgetful at times. Psychiatric History: Reports: Anxiety, Dementia (Sundowners syndrome, worsening.), Depression Endocrine/Metabolic History: Reports: None Hematologic History: Reports: None, Blood Transfusion(s) Other Hematologic History: on iron daily Immunologic History: Reports: None Oncologic (Cancer) History: Reports: Basal Cell Carcinoma (Right ear) Dermatologic History: Reports: Other (See Below) (Right ear,) - Infectious Disease History Infectious Disease History: Reports: Chicken Pox, Measles, Mumps, Pertussis (Whooping Cough) - Past Surgical History HEENT Surgical History: Reports: Cataract Surgery, Oral Surgery, Tonsillectomy Cardiovascular Surgical History: Reports: Coronary Artery Bypass, Pacer Respiratory Surgical History: Reports: None GI Surgical History: Reports: Appendectomy, Cholecystectomy, Colon, Colonoscopy, EGD Male Surgical History: Reports: None Neurological Surgical History: Reports: Other (See Below) Other Neurological Surgeries/Procedures: Does have hydrocephalus but is unable to have a shunt placed at this time due to poor cardiology function, per Musculoskeletal Surgical History: Reports: Hip Replacement Oncologic Surgical History: Reports: None - Past Imaging History Past Imaging History: Reports: Angiography, Cardiac Echo, Xray Social & Family History - Family History Family Medical History: No Pertinent Family History Oncologic: Reports: Bladder, Lung - Caffeine Use Caffeine Use: Reports: Coffee, Tea - Recreational Drug Use Recreational Drug Use: No Drug Use in Last 12 Months: No - Living Situation & Occupation Living situation: Reports: Occupation: Retired ED ROS GENERAL - Review of Systems Review Of Systems: Comprehensive ROS is negative, except as noted in HPI. ED EXAM, GENERAL - Physical Exam Exam: See Below Free Text/Narrative:: Alert and dependent on questioning oriented with no acute distress. There is pallor noted. No cyanosis is noted. HEENT is negative discharge or deformity other than his right ear with a basal cell carcinoma resection and scabbing is noted, a cream being applied as the topical anti-carcinogen treatment. No bleeding is noted. Canals are patent with no ceruminosis, no involvement of the tympanic membranes. Nasal passages are patent. Tongue is pink and moist oral mucosa is overall moist with no erythema. Neck is soft supple I do not appreciate bruit nor JVD. Thorax is clear throughout mildly diminished bases likely due to positioning with no wheezes nor crackles. 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 Abdomen is soft bowel sounds are present, there is no tenderness to palpation no mass appreciated. No flank pain. rectal deferred. There is +12 edema with skin warm and dry to the lower extremities. Course - Vital Signs Last Recorded V/S: Last Vital Signs Temp 98.5 F 02/13/21 18:02 Pulse 60 02/13/21 19:30 Resp 20 02/13/21 19:30 BP 91/42 L 02/13/21 19:30 Pulse Ox 98 02/13/21 19:30 - Orders/Labs/Meds Orders: Active Orders 24 hr Category Date Time Status Peripheral IV Care [RC] . DIRECTED Care 02/13/21 18:21 Active Sodium Chloride 0.9% [Saline Flush] Med 02/13/21 18:21 Active 10 ml FLUSH Q8HR PRN Peripheral IV Insertion Adult [OM.PC] Routine Oth 02/13/21 18:21 Ordered Medication Orders Sodium Chloride (Sodium Chloride 0.9% 10 Ml Syringe) 10 ml FLUSH Q8HR PRN PRN Reason: keep vein open Labs: Laboratory Tests 02/13/21 02/13/21 02/13/21 Range/Units 18:15 18:15 18:15 WBC 1.47 L* (5.00-10.00) 10^3/uL RBC 3.40 L (4.50-6.00) 10^6/uL Hgb 10.3 L (13.0-17.0) g/dL Hct 30.2 L (40.0-52.0) % MCV 88.8 (82.0-92.0) fL MCH 30.3 (27.0-31.0) pg MCHC 34.1 (32.0-36.0) g/dL RDW 14.1 (11.5-14.5) % Plt Count 92 L (150-400) 10^3/uL MPV 10.3 (7.4-10.4) fL Immature Gran % (Auto) [employer] Neut % (Auto) [employer] Lymph % (Auto) [employer]ician [place] % (Auto) [employer] Eos % (Auto) [employer]ician Baso % (Auto) [employer]ician Neut # (Auto) [employer]ician Lymph # (Auto) [employer]ician [place] # (Auto) [employer]ician Eos # (Auto) [employer]ician Baso # (Auto) [employer] Immature Gran # (Auto) [employer] Add Manual Diff Yes Neutrophils % (Manual) 52 (50-70) % Lymphocytes % (Manual) 34 (20-40) % Monocytes % (Manual) 14 H (2-8) % Platelet Estimate Decreased Polychromasia Not seen Hypochromasia Not seen Microcytosis Not seen Macrocytosis Not seen RBC Morph Comment See note Sodium 135 L (136-145) mmol/L Potassium 3.9 (3.5-5.1) mmol/L Chloride 100 (98-107) mmol/L Carbon Dioxide 28.8 (21.0-32.0) mmol/L Anion Gap 10.1 (5-15) mmol/L BUN 18 (7-18) mg/dL Creatinine 1.21 H (0.51-1.17) mg/dL Est Cr Clr Drug Dosing 46.32 mL/min Estimated GFR (MDRD) 58 mL/min Glucose 93 (70-140) mg/dL Lactic Acid 1.4 (0.4-2.0) mmol/L Calcium 7.9 L (8.7-10.3) mg/dL Total Bilirubin 1.1 H (0.2-1.0) mg/dL AST 21 (15-37) U/L ALT 14 (14-63) U/L Alkaline Phosphatase 66 (46-116) U/L Troponin I High Sens 9.800 (0-76.000) pg/mL B-Natriuretic Peptide 317 H (0-100) pg/mL Total Protein 6.2 L (6.4-8.2) g/dL Albumin 3.40 (3.40-5.00) g/dL Specimen Type Urine Color (YELLOW) Urine Appearance (CLEAR) Urine pH (5.0-9.0) Ur Specific [place] (1.005-1.030) Urine Protein (NEGATIVE) mg/dL Urine Glucose (UA) (NEGATIVE) mg/dL Urine Ketones (NEGATIVE) mg/dL Urine Occult Blood (NEGATIVE) Urine Nitrite (NEGATIVE) Urine Bilirubin (NEGATIVE) Urine Urobilinogen (0.2-1.0) E.U./dL Ur Leukocyte Esterase (NEGATIVE) 02/13/21 Range/Units 18:39 WBC (5.00-10.00) 10^3/uL RBC (4.50-6.00) 10^6/uL Hgb (13.0-17.0) g/dL Hct (40.0-52.0) % MCV (82.0-92.0) fL MCH (27.0-31.0) pg MCHC (32.0-36.0) g/dL RDW (11.5-14.5) % Plt Count (150-400) 10^3/uL MPV (7.4-10.4) fL Immature Gran % (Auto) Neut % (Auto) Lymph % (Auto) [place] % (Auto) Eos % (Auto) Baso % (Auto) Neut # (Auto) Lymph # (Auto) [place] # (Auto) Eos # (Auto) Baso # (Auto) Immature Gran # (Auto) Add Manual Diff Neutrophils % (Manual) (50-70) % Lymphocytes % (Manual) (20-40) % Monocytes % (Manual) (2-8) % Platelet Estimate Polychromasia Hypochromasia Microcytosis Macrocytosis RBC Morph Comment Sodium (136-145) mmol/L Potassium (3.5-5.1) mmol/L Chloride (98-107) mmol/L Carbon Dioxide (21.0-32.0) mmol/L Anion Gap (5-15) mmol/L BUN (7-18) mg/dL Creatinine (0.51-1.17) mg/dL Est Cr Clr Drug Dosing mL/min Estimated GFR (MDRD) mL/min Glucose (70-140) mg/dL Lactic Acid (0.4-2.0) mmol/L Calcium (8.7-10.3) mg/dL Total Bilirubin (0.2-1.0) mg/dL AST (15-37) U/L ALT (14-63) U/L Alkaline Phosphatase (46-116) U/L Troponin I High Sens (0-76.000) pg/mL B-Natriuretic Peptide (0-100) pg/mL Total Protein (6.4-8.2) g/dL Albumin (3.40-5.00) g/dL Specimen Type Urincc Urine Color Yellow (YELLOW) Urine Appearance Clear (CLEAR) Urine pH 5.5 (5.0-9.0) Ur Specific [place] 1.015 (1.005-1.030) Urine Protein Negative (NEGATIVE) mg/dL Urine Glucose (UA) Negative (NEGATIVE) mg/dL Urine Ketones Negative (NEGATIVE) mg/dL Urine Occult Blood Negative (NEGATIVE) Urine Nitrite Negative (NEGATIVE) Urine Bilirubin Negative (NEGATIVE) Urine Urobilinogen 0.2 (0.2-1.0) E.U./dL Ur Leukocyte Esterase Negative (NEGATIVE) Meds: Medications Generic Name Dose Route Start Last Admin Trade Name Freq PRN Reason Stop Dose Admin Sodium Chloride 10 ml 02/13/21 18:21 Sodium Chloride 0.9% 10 Ml Syringe FLUSH Q8HR PRN keep vein open Departure - Departure Time of Disposition: 19:43 Disposition: Home, Self-Care 01 Condition: Fair Clinical Impression: Failure to thrive in adult, Dementia Leukopenia Qualifiers: Leukopenia type: unspecified Qualified Code(s): D72.819 - Decreased white blood cell count, unspecified - Discharge Information *PRESCRIPTION DRUG MONITORING PROGRAM REVIEWED*: Not Applicable *COPY OF PRESCRIPTION DRUG MONITORING REPORT IN PATIENT HUMA: Not Applicable Instructions: Dementia Caregiver Guide, Dementia, [id number], Failure to Thrive, Adult, [id number] Referrals: Maddie Hayes MD [Primary Care Provider] - Forms: ED Department Discharge Additional Instructions: Overall lab findings show your white cell count is down limiting your ability to fight infection. Kidney function is off slightly but that would be attributed to the medications you are on. The anemia in review of the chart, has been shown to be iron deficient and with the liver function test as well as the iron it is likely the combination of dietary intake and overall body function contributing to that. The heart numbers are normal with no evidence of heart attack nor worsening heart failure. All medication should be continued as previously directed. I will speak with Dr. Perkins about the overall status and discussion on future visits and or other services to be implemented. Please feel free to contact the clinic if any questions should arise in the meantime, or consider returning to the emergency department for reevaluation. Sepsis Event Note (ED) - Focused Exam Vital Signs: Vital Signs Temp Pulse Pulse Resp BP Pulse Ox 02/13/21 19:30 60 20 91/42 L 98 02/13/21 19:15 60 20 97/42 L 98 02/13/21 19:00 60 20 92/45 L 97 02/13/21 18:45 60 20 95/42 L 97 02/13/21 18:30 60 20 100/48 L 97 02/13/21 18:15 60 18 98/47 L 97 02/13/21 18:02 98.5 F 59 L 18 112/51 L 97 02/13/21 18:01 60 18 96/45 L 97 - Problem List & Annotations (1) Leukopenia SNOMED Code(s): 82670166, 688785348 Code(s): D72.819 - DECREASED WHITE BLOOD CELL COUNT, UNSPECIFIED Status: Acute Priority: High Current Visit: Yes Qualifiers: Leukopenia type: unspecified Qualified Code(s): D72.819 - Decreased white blood cell count, unspecified (2) Paced cardiac rhythm SNOMED Code(s): 45409633 Code(s): UHL8796 - Status: Acute Current Visit: Yes (3) Iron deficiency anemia SNOMED Code(s): 57781130 Code(s): D50.9 - IRON DEFICIENCY ANEMIA, UNSPECIFIED Status: Chronic Priority: Medium Current Visit: No Qualifiers: Iron deficiency anemia type: unspecified iron deficiency Qualified Code(s): D50.9 - Iron deficiency anemia, unspecified (4) Weakness SNOMED Code(s): 29582803 Code(s): R53.1 - WEAKNESS Status: Chronic Priority: High Current Visit: No (5) Failure to thrive in adult SNOMED Code(s): 168835917 Code(s): R62.7 - ADULT FAILURE TO THRIVE Status: Acute Current Visit: Yes (6) Dementia SNOMED Code(s): 75431192 Code(s): F03.90 - UNSPECIFIED DEMENTIA WITHOUT BEHAVIORAL DISTURBANCE S tatus: Acute Current Visit: Yes - Problem List Review Problem List Initiated/Reviewed/Updated: Yes - My Orders Last 24 Hours: My Active Orders 02/13/21 18:21 Peripheral IV Care [RC] . DIRECTED Sodium Chloride 0.9% [Saline Flush] 10 ml FLUSH Q8HR PRN Peripheral IV Insertion Adult [OM.PC] Routine - Assessment/Plan Last 24 Hours: My Active Orders 02/13/21 18:21 Peripheral IV Care [RC] . DIRECTED Sodium Chloride 0.9% [Saline Flush] 10 ml FLUSH Q8HR PRN Peripheral IV Insertion Adult [OM.PC] Routine Plan: Overall lab findings show your white cell count is down limiting your ability to fight infection. Kidney function is off slightly but that would be attributed to the medications you are on. The anemia in review of the chart, has been shown to be iron deficient and with the liver function test as well as the iron it is likely the combination of dietary intake and overall body function contributing to that. The heart numbers are normal with no evidence of heart attack nor worsening heart failure. All medication should be continued as previously directed. I will speak with Dr. Perkins about the overall status and discussion on future visits and or other services to be implemented. Please feel free to contact the clinic if any questions should arise in the meantime, or consider returning to the emergency department for reevaluation.
[2021-02-13] MEDS ORDERED: Sodium Chloride 0.9% 10 ML Syringe FLUSH PRN (18:21)
[2021-02-13 18:59] LABS: ANION GAP 10.1 mmol/L (5-15)
[2021-02-13 19:34] VITALS: PULSE 60
[2021-02-13 19:37] VITALS: BP 91/42
== END 2021-02-13 19:50 | disposition home or self-care (01) ==
LOC: KA.ED 17:49
DX: F03.90 Unspecified dementia, unspecified severity, without behavioral disturbance, psychotic disturbance, mood disturbance, and anxiety (principal); D72.819 Decreased white blood cell count, unspecified; R62.7 Adult failure to thrive; I25.10 Atherosclerotic heart disease of native coronary artery without angina pectoris; I11.0 Hypertensive heart disease with heart failure; I50.9 Heart failure, unspecified; I25.2 Old myocardial infarction; N40.1 Benign prostatic hyperplasia with lower urinary tract symptoms; R33.8 Other retention of urine; Z88.5 Allergy status to narcotic agent; Z88.0 Allergy status to penicillin; Z79.899 Other long term (current) drug therapy
CPT/HCPCS: 36415; 80053; 81003; 83605; 83880; 84484; 85025; 99284

== ENCOUNTER 2021-07-08 23:52 | Inpatient (IN) | payer MEDICARE, BC ==
[2021-07-09] MEDS ORDERED: Sodium Chloride 0.9% 10 ML Syringe FLUSH PRN (00:02)
--- NOTE | 2021-07-09 00:06 | EDM.PDOC ---
ED HPI GENERAL MEDICAL PROBLEM - General Chief Complaint: Neurological Problem Stated Complaint: fall Time Seen by Provider: 07/08/21 23:52 Source of Information: Reports: Patient, Family History Limitations: Reports: Altered Mental Status - History of Present Illness INITIAL COMMENTS - FREE TEXT/NARRATIVE: Bryant, 80-year-old male, was found on the floor this evening when his returned home from work. He is extremely weak and required the assistance of herself and a neighbor to get him up into the vehicle to transport here for evaluation. Estimated time of the fall was shortly after 3 PM as family had been there decorating with [facility] decorations and he stated it was less than 5 minutes after the left that he fell. He was unable to get himself up and remained on the floor for roughly 7 hours. Minal states that he had his phone in his hand when she got home, as she had tried to call him numerous times from her work, but he was unable to answer the phone, attributed to his weakness. He denies any significant injury other than weakness. He does speak of the back of his head in general conversation but only a small barely palpable area is noted as hematoma which may or may not be chronic in nature. He denies any pain to the extremities but is very limited in the strength of his extremities. He requires assist of two to get from his van, passenger seat to the wheelchair. He is fully vaccinated including a booster, against COVID-19. Denies loss of consciousness, but acknowledges weakness Onset: Today, Sudden Duration: Hour(s): - Related Data Allergies Allergy/AdvReac Type Severity Reaction Status Date / Time hydromorphone HCl Allergy Confusion Verified 07/09/21 01:29 [From Dilaudid] penicillin Allergy Hives Verified 07/09/21 01:29 Home Meds: Home Meds carvediloL [Carvedilol] 3.125 mg PO BIDMEALS 02/27/18 [History] FLUoxetine [PROzac] 20 mg PO DAILY 06/21/18 [History] Hydrocodone/Acetaminophen [Hydrocodone-Acetamin 10-325 mg] 1 tab PO TID PRN 06/21/18 [History] Tamsulosin [Flomax] 0.4 mg PO BEDTIME 06/21/18 [History] Terazosin [Hytrin] 2 mg PO BEDTIME 06/21/18 [History] Pantoprazole Sodium 20 mg PO DAILY 05/10/19 [History] polyethylene glycoL 3350 [MiraLAX] 17 gram PO DAILY 05/10/19 [History] Furosemide [Lasix] 20 mg PO DAILY 07/09/21 [History] Past Medical History HEENT History: Reports: Cataract, Hard of Hearing Other HEENT History: Hydrocephalous Cardiovascular History: Reports: Bypass, CAD, Heart Failure, High Cholesterol, Hypertension, SC, Pacemaker Respiratory History: Reports: Intubation, Previous Gastrointestinal History: Reports: Chronic Constipation Other Gastrointestinal History: twisted colon with surgical removal Genitourinary History: Reports: BPH, Prostate Disorder, Retention, Urinary Other Genitourinary History: urgency Musculoskeletal History: Reports: Arthritis Other Musculoskeletal History: shuffled gait, falls easily, unsteady frequently Neurological History: Reports: Other (See Below) Other Neuro History: Dizziness; states he is forgetful at times. Psychiatric History: Reports: Anxiety, Dementia, Depression Endocrine/Metabolic History: Reports: None Hematologic History: Reports: Blood Transfusion(s) Other Hematologic History: on iron daily Immunologic History: Reports: None Oncologic (Cancer) History: Reports: Basal Cell Carcinoma Dermatologic History: Reports: Other (See Below) Other Dermatologic History: right ear basal cell carcinoma with some area removed and blackened areas behind ear - Infectious Disease History Infectious Disease History: Reports: Chicken Pox, Measles, Mumps, Novel Coronavirus, Pertussis (Whooping Cough) - Past Surgical History Head Surgeries/Procedures: Reports: None HEENT Surgical History: Reports: Cataract Surgery, Oral Surgery, Tonsillectomy Cardiovascular Surgical History: Reports: Coronary Artery Bypass, Pacer Respiratory Surgical History: Reports: None GI Surgical History: Reports: Appendectomy, Cholecystectomy, Colon, Colonoscopy, EGD Male Surgical History: Reports: None Endocrine Surgical History: Reports: None Neurological Surgical History: Reports: Other (See Below) Other Neurological Surgeries/Procedures: Does have hydrocephalus but is unable to have a shunt placed at this time due to poor cardiology function, per Musculoskeletal Surgical History: Reports: Hip Replacement Other Musculoskeletal Surgeries/Procedures:: left side hip replacement, right finger pinning Oncologic Surgical History: Reports: Other (See Below) Other Oncologic Surgeries/Procedures: right ear Dermatological Surgical History: Reports: Other (See Below) - Past Imaging History Past Imaging History: Reports: Angiography, Cardiac Echo, Xray Social & Family History - Family History Family Medical History: No Pertinent Family History Oncologic: Reports: Bladder, Lung - Caffeine Use Caffeine Use: Reports: Coffee, Soda - Living Situation & Occupation Living situation: Reports: Occupation: Retired ED ROS GENERAL - Review of Systems Review Of Systems: Comprehensive ROS is negative, except as noted in HPI. ED EXAM, GENERAL - Physical Exam Exam: See Below Free Text/Narrative:: Alert, somewhat dependent on questioning as his orientation, with no acute distress. Bryant denies having any pain. There is no significant pallor, nor cyanosis is noted. HEENT is negative discharge or deformity with scarring to the right ear From a past basal cell carcinoma resection, a small abrasion 0.4cm to the posterior calvera with no active bleeding. Skin lesion in occipital region. Canals are patent with no ceruminosis, no involvement of the tympanic membranes. Nasal passages are patent. Tongue is pink and moist oral mucosa is overall moist with no erythema. No deviation noted. Neck is soft supple I do not appreciate bruit nor JVD. Thorax is clear throughout mildly diminished bases with no wheezes nor crackles. Anterior-ventral scar of prior cardiac bypass. Pacer in Left upper anterior chest wall. Cardiac is regular S1-S2 paced matching night monitor, grade 1 of 6 murmur is appreciated at this time. Abdomen is soft bowel sounds are present, there is no tenderness to palpation no mass appreciated. No flank pain. rectal deferred. There is +12 edema with skin warm and dry to the lower extremities. 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 Legs are Weak symmetrically. He required the assistance of 2 to get from the van into the wheelchair and from the wheelchair to stand and pivot onto the cart in the emergency department. Significant weakness is noted since his last visit with me. Assist of [address] table, NO assistance from Bryant. #1 Interpretation EKG Date: 07/09/21 Time: 00:25 Rhythm: A-Fib Rate (Beats/Min): 80 P-Wave: Absent QRS: Wide ST-T: Depressed QT: Prolonged Comparison: No Change (Compared 07 Aug 2018) Course - Vital Signs Last Recorded V/S: Last Vital Signs Temp 97.6 F 07/09/21 00:28 Pulse 75 07/09/21 00:28 Resp 17 07/09/21 00:28 BP 149/63 H 07/09/21 00:28 Pulse Ox 98 07/09/21 00:28 - Orders/Labs/Meds Orders: Active Orders 24 hr Category Date Time Status Peripheral IV Care [RC] . DIRECTED Care 07/09/21 00:03 Active Chest 1V Frontal [CR] Stat Exams 07/09/21 00:02 Ordered Head wo Cont [CT] Stat Exams 07/09/21 00:04 Ordered CULTURE URINE [RM] Stat Lab 07/09/21 00:35 Received REFLEX LACTIC ACID YES OR NO [CHEM] Routine Lab 07/09/21 00:57 Received Sodium Chloride 0.9% [Saline Flush] Med 07/09/21 00:02 Active 10 ml FLUSH Q8HR PRN Peripheral IV Insertion Adult [OM.PC] Stat Oth 07/09/21 00:02 Ordered Code Status [Resuscitation Status] Stat Resus Stat 07/09/21 00:31 Ordered EKG 12 Lead [EK] Stat Ther 07/09/21 00:02 Ordered Medication Orders Sodium Chloride (Sodium Chloride 0.9% 10 Ml Syringe) 10 ml FLUSH Q8HR PRN PRN Reason: keep vein open Labs: Laboratory Tests 07/09/21 07/09/21 07/09/21 Range/Units 00:10 00:10 00:10 WBC 6.04 (5.00-10.00) 10^3/uL RBC 3.80 L (4.50-6.00) 10^6/uL Hgb 11.6 L (13.0-17.0) g/dL Hct 33.7 L (40.0-52.0) % MCV 88.7 (82.0-92.0) fL MCH 30.5 (27.0-31.0) pg MCHC 34.4 (32.0-36.0) g/dL RDW 13.4 (11.5-14.5) % Plt Count 124 L (150-400) 10^3/uL MPV 9.8 (7.4-10.4) fL Immature Gran % (Auto) 0.2 (0.0-5.0) % Neut % (Auto) 80.2 H (50.0-70.0) % Lymph % (Auto) 8.6 L (20.0-40.0) % Ralls % (Auto) 8.8 H (2.0-8.0) % Eos % (Auto) 1.5 (1.0-3.0) % Baso % (Auto) 0.7 (0.0-1.0) % Neut # (Auto) 4.85 (2.50-7.00) 10^3/uL Lymph # (Auto) 0.52 L (1.00-4.00) 10^3/uL Ralls # (Auto) 0.53 (0.10-0.80) 10^3/uL Eos # (Auto) 0.09 L (0.10-0.30) 10^3/uL Baso # (Auto) 0.04 (0.00-0.10) 10^3/uL Immature Gran # (Auto) 0.01 (0.00-0.50) 10^3/uL Sodium 136 (136-145) mmol/L Potassium 4.1 (3.5-5.1) mmol/L Chloride 99 (98-107) mmol/L Carbon Dioxide 22.6 (21.0-32.0) mmol/L Anion Gap 18.5 H (5-15) mmol/L BUN 11 (7-18) mg/dL Creatinine 0.88 (0.51-1.17) mg/dL Est Cr Clr Drug Dosing TNP Estimated GFR (MDRD) > 60 mL/min Glucose 100 (70-140) mg/dL Lactic Acid 3.0 H (0.4-2.0) mmol/L Calcium 8.9 (8.7-10.3) mg/dL Total Bilirubin 2.4 H (0.2-1.0) mg/dL AST 28 (15-37) U/L ALT 13 L (14-63) U/L Alkaline Phosphatase 63 (46-116) U/L Creatine Kinase 430 H* (26-276) U/L Troponin I High Sens 24.100 (0-76.000) pg/mL C-Reactive Protein < 0.4 (0.0-0.9) mg/dL Total Protein 6.7 (6.4-8.2) g/dL Albumin 3.81 (3.40-5.00) g/dL Specimen Type Urine Color (YELLOW) Urine Appearance (CLEAR) Urine pH (5.0-9.0) Ur Specific [place] (1.005-1.030) Urine Protein (NEGATIVE) mg/dL Urine Glucose (UA) (NEGATIVE) mg/dL Urine Ketones (NEGATIVE) mg/dL Urine Occult Blood (NEGATIVE) Urine Nitrite (NEGATIVE) Urine Bilirubin (NEGATIVE) Urine Urobilinogen (0.2-1.0) E.U./dL Ur Leukocyte Esterase (NEGATIVE) Urine RBC (0-5) /HPF Urine WBC (0-5) /HPF Ur Epithelial Cells /LPF Urine Bacteria (NONE TO FEW) /HPF SARS CoV-2 RNA Rapid BRUNO (NEGATIVE) 07/09/21 07/09/21 Range/Units 00:12 00:35 WBC (5.00-10.00) 10^3/uL RBC (4.50-6.00) 10^6/uL Hgb (13.0-17.0) g/dL Hct (40.0-52.0) % MCV (82.0-92.0) fL MCH (27.0-31.0) pg MCHC (32.0-36.0) g/dL RDW (11.5-14.5) % Plt Count (150-400) 10^3/uL MPV (7.4-10.4) fL Immature Gran % (Auto) (0.0-5.0) % Neut % (Auto) (50.0-70.0) % Lymph % (Auto) (20.0-40.0) % Ralls % (Auto) (2.0-8.0) % Eos % (Auto) (1.0-3.0) % Baso % (Auto) (0.0-1.0) % Neut # (Auto) (2.50-7.00) 10^3/uL Lymph # (Auto) (1.00-4.00) 10^3/uL Ralls # (Auto) (0.10-0.80) 10^3/uL Eos # (Auto) (0.10-0.30) 10^3/uL Baso # (Auto) (0.00-0.10) 10^3/uL Immature Gran # (Auto) (0.00-0.50) 10^3/uL Sodium (136-145) mmol/L Potassium (3.5-5.1) mmol/L Chloride (98-107) mmol/L Carbon Dioxide (21.0-32.0) mmol/L Anion Gap (5-15) mmol/L BUN (7-18) mg/dL Creatinine (0.51-1.17) mg/dL Est Cr Clr Drug Dosing Estimated GFR (MDRD) mL/min Glucose (70-140) mg/dL Lactic Acid (0.4-2.0) mmol/L Calcium (8.7-10.3) mg/dL Total Bilirubin (0.2-1.0) mg/dL AST (15-37) U/L ALT (14-63) U/L Alkaline Phosphatase (46-116) U/L Creatine Kinase (26-276) U/L Troponin I High Sens (0-76.000) pg/mL C-Reactive Protein (0.0-0.9) mg/dL Total Protein (6.4-8.2) g/dL Albumin (3.40-5.00) g/dL Specimen Type Urincath Urine Color Yellow (YELLOW) Urine Appearance Slightly cloudy H (CLEAR) Urine pH 7.5 (5.0-9.0) Ur Specific [place] 1.015 (1.005-1.030) Urine Protein Negative (NEGATIVE) mg/dL Urine Glucose (UA) Negative (NEGATIVE) mg/dL Urine Ketones Trace H (NEGATIVE) mg/dL Urine Occult Blood Moderate H (NEGATIVE) Urine Nitrite Negative (NEGATIVE) Urine Bilirubin Negative (NEGATIVE) Urine Urobilinogen 4.0 H (0.2-1.0) E.U./dL Ur Leukocyte Esterase Small H (NEGATIVE) Urine RBC 10-20 H (0-5) /HPF Urine WBC 5-10 H (0-5) /HPF Ur Epithelial Cells Occasional /LPF Urine Bacteria Moderate H (NONE TO FEW) /HPF SARS CoV-2 RNA Rapid BRUNO Negative (NEGATIVE) Meds: Medications Generic Name Dose Route Start Last Admin Trade Name Freq PRN Reason Stop Dose Admin Sodium Chloride 10 ml 07/09/21 00:02 Sodium Chloride 0.9% 10 Ml Syringe FLUSH Q8HR PRN keep vein open Departure - Departure Time of Disposition: 01:12 Disposition: Admitted As Inpatient 65 Condition: Fair Clinical Impression: Elevated lactic acid level, Cardiomegaly, Rhabdomyolysis, COVID-19 ruled out by laboratory testing, 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 Dr Ventura attending. Sepsis Event Note (ED) - Focused Exam Vital Signs: Vital Signs Temp Pulse Resp BP Pulse Ox 07/09/21 00:28 97.6 F 75 17 149/63 H 98 - Problem List & Annotations (1) Atrial fibrillation SNOMED Code(s): 12102473 Code(s): I48.91 - UNSPECIFIED ATRIAL FIBRILLATION Status: Chronic Priority: High Qualifiers: Atrial fibrillation type: longstanding persistent Qualified Code(s): I48.11 - Longstanding persistent atrial fibrillation (2) Weakness SNOMED Code(s): 22781373 Code(s): R53.1 - WEAKNESS Status: Chronic Priority: High (3) Dependent edema SNOMED Code(s): 977063772 Code(s): R60.9 - EDEMA, UNSPECIFIED Status: Chronic Priority: High (4) 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 SNOMED Code(s): 493002752 Code(s): R90.82 - WHITE MATTER DISEASE, UNSPECIFIED; I99.8 - OTHER DISORDER OF CIRCULATORY SYSTEM Status: Chronic Priority: High (5) Dementia SNOMED Code(s): 14617762 Code(s): F03.90 - UNSPECIFIED DEMENTIA WITHOUT BEHAVIORAL DISTURBANCE Status: Acute Qualifiers: Dementia type: unspecified type Dementia behavioral disturbance: without behavioral disturbance Qualified Code(s): F03.90 - Unspecified dementia without behavioral disturbance (6) Rhabdomyolysis SNOMED Code(s): 302683921 Code(s): M62.82 - RHABDOMYOLYSIS Status: Acute Priority: High Qualifiers: Rhabdomyolysis type: traumatic Encounter type: initial encounter Qualified Code(s): T79.6XXA - Traumatic ischemia of muscle, initial encounter (7) COVID-19 ruled out by laboratory testing SNOMED Code(s): 652207065999058358, 645035040837175931 Code(s): Z20.822 - CONTACT WITH AND (SUSPECTED) EXPOSURE TO COVID-19 Status: Acute Priority: High (8) Cardiomegaly SNOMED Code(s): 1651240 Code(s): I51.7 - CARDIOMEGALY Status: Acute Priority: Medium (9) Elevated lactic acid level SNOMED Code(s): 9856608 Code(s): R79.89 - OTHER SPECIFIED ABNORMAL FINDINGS OF BLOOD CHEMISTRY Status: Acute Priority: Medium (10) UTI (urinary tract infection), bacterial SNOMED Code(s): 417263262 Code(s): N39.0 - URINARY TRACT INFECTION, SITE NOT SPECIFIED; A49.9 - BACTERIAL INFECTION, UNSPECIFIED Status: Acute Priority: High Annotation/Comment:: Likely contributing to his weakness and increased forgetfulness - Problem List Review Problem List Initiated/Reviewed/Updated: Yes - My Orders Last 24 Hours: My Active Orders 07/09/21 00:02 Chest 1V Frontal [CR] Stat Sodium Chloride 0.9% [Saline Flush] 10 ml FLUSH Q8HR PRN Peripheral IV Insertion Adult [OM.PC] Stat EKG 12 Lead [EK] Stat 07/09/21 00:03 Peripheral IV Care [RC] . DIRECTED 07/09/21 00:04 Head wo Cont [CT] Stat 07/09/21 00:31 Code Status [Resuscitation Status] Stat 07/09/21 00:35 CULTURE URINE [RM] Stat 07/09/21 00:57 REFLEX LACTIC ACID YES OR NO [CHEM] Routine - Assessment/Plan Admission H&P: Please use this note as an admission H&P Last 24 Hours: My Active Orders 07/09/21 00:02 Chest 1V Frontal [CR] Stat Sodium Chloride 0.9% [Saline Flush] 10 ml FLUSH Q8HR PRN Peripheral IV Insertion Adult [OM.PC] Stat EKG 12 Lead [EK] Stat 07/09/21 00:03 Peripheral IV Care [RC] . DIRECTED 07/09/21 00:04 Head wo Cont [CT] Stat 07/09/21 00:31 Code Status [Resuscitation Status] Stat 07/09/21 00:35 CULTURE URINE [RM] Stat 07/09/21 00:57 REFLEX LACTIC ACID YES OR NO [CHEM] Routine Plan: Acute admission for cautious hydration with CHF hx and cardiomegaly. Dr Ventura attending.
[2021-07-09 00:50] LABS: ANION GAP 18.5 mmol/L (5-15); CHLORIDE,CL 99 mmol/L (98-107); SODIUM,NA 136 mmol/L (136-145)
[2021-07-09] MEDS ORDERED: Sodium Chloride 0.9% 1,000 ML IV ONE (01:28)
[2021-07-09] MEDS ORDERED: Levofloxacin/Dextrose 5%-Water 500 MG in Premix Bag 1 BAG IV SCH (01:30)
[2021-07-09] MEDS ORDERED: Acetaminophen 325 MG Tab PO PRN (01:34)
[2021-07-09] MEDS: Tamsulosin 0.4 MG Cap.ER PO SCH ×2 (02:37→20:08)
[2021-07-09] MEDS: Carvedilol 6.25 MG Tab PO SCH ×3 (02:38→18:27)
[2021-07-09] MEDS: Terazosin 1 MG Cap PO SCH ×2 (02:39→20:09)
[2021-07-09] MEDS: Acetaminophen/HYDROcodone 325-10 MG Tab PO PRN ×2 (03:45→21:41)
[2021-07-09] MEDS: Sodium Chloride 0.9% 1,000 ML IV SCH ×3 (04:14→20:10)
[2021-07-09] MEDS ORDERED: Carvedilol 6.25 MG Tab PO SCH (08:00)
--- NOTE | 2021-07-09 08:05 | CR ---
[id number] RAD/RAD Chest Portable EXAM: PORTABLE CHEST RADIOGRAPH. INDICATION: TRAUMA COMPARISON: CORRELATION IS MADE WITH AUGUST 07, 2018 FINDINGS: The lungs are clear The cardiac silhouette is stable Cardiac surgical changes and a pacemaker are seen IMPRESSION: NO ACUTE PROCESS. Erich Cardenas MD 07/09/21 0804 Thank you for allowing us to participate in the care of your patient.
--- NOTE | 2021-07-09 08:06 | CT ---
[id number] CT/CT Head WO IV EXAM: CT Head WO IV CLINICAL DATA: CHANGE IN MENTAL STATUS COMPARISON: No previous similar exam is available for comparison. FINDINGS: There is no mass or mass effect. There is no hemorrhage or hydrocephalus. There are no extra-axial fluid collections. There are no sites of abnormal attenuation. IMPRESSION: NO PLAIN CT EVIDENCE OF ACUTE INTRACRANIAL PROCESS. Erich Cardenas MD 07/09/21 0805 Thank you for allowing us to participate in the care of your patient.
[2021-07-09 08:11] LABS: ANION GAP 13.2 mmol/L (5-15); CHLORIDE,CL 102 mmol/L (98-107); SODIUM,NA 137 mmol/L (136-145)
[2021-07-09] MEDS ORDERED: Furosemide 40 MG Tab PO SCH (09:00)
--- NOTE | 2021-07-09 10:09 | PCM.HP.2 ---
H&P History of Present Illness - General Date of Service: 07/09/21 Admit Problem/Dx: Admission Diagnosis/Problem Admission Diagnosis/Problem Rhabdomyolysis Source of Information: Patient, Old Records, Provider History Limitations: Reports: No Limitations Generalized Pain Score (Numeric/FACES): 5 - Related Data Allergies/Adverse Reactions: Allergies Allergy/AdvReac Type Severity Reaction Status Date / Time hydromorphone HCl Allergy Confusion Verified 07/09/21 01:29 [From Dilaudid] penicillin Allergy Hives Verified 07/09/21 01:29 Home Medications: Home Meds Pantoprazole Sodium 20 mg PO DAILY 05/10/19 [History] Acetaminophen [Pain Relief] 650 mg PO Q6HR PRN #180 tablet 07/12/21 [Rx] FLUoxetine [PROzac] 20 mg PO DAILY #0 07/12/21 [Rx] Furosemide [Lasix] 20 mg PO DAILY #30 07/12/21 [Rx] Tamsulosin [Flomax] 0.4 mg PO BEDTIME #0 07/12/21 [Rx] Terazosin [Hytrin] 4 mg PO BEDTIME #0 07/12/21 [Rx] carvediloL [Carvedilol] 3.125 mg PO BIDMEALS #60 07/12/21 [Rx] polyethylene glycoL 3350 [MiraLAX] 17 gram PO DAILY #30 07/12/21 [Rx] Past Medical History HEENT History: Reports: Cataract, Hard of Hearing Other HEENT History: Hydrocephalous Cardiovascular History: Reports: Bypass, CAD, Heart Failure, High Cholesterol, Hypertension, [place], Pacemaker Respiratory History: Reports: Intubation, Previous Gastrointestinal History: Reports: Chronic Constipation Other Gastrointestinal History: twisted colon with surgical removal Genitourinary History: Reports: BPH, Prostate Disorder, Retention, Urinary Other Genitourinary History: urgency Musculoskeletal History: Reports: Arthritis Other Musculoskeletal History: shuffled gait, falls easily, unsteady frequently Neurological History: Reports: Other (See Below) Other Neuro History: Dizziness; states he is forgetful at times. Psychiatric History: Reports: Anxiety, Dementia, Depression Endocrine/Metabolic History: Reports: None Hematologic History: Reports: Blood Transfusion(s) Other Hematologic History: on iron daily Immunologic History: Reports: None Oncologic (Cancer) History: Reports: Basal Cell Carcinoma Dermatologic History: Reports: Other (See Below) Other Dermatologic History: right ear basal cell carcinoma with some area removed and blackened areas behind ear - Infectious Disease History Infectious Disease History: Reports: Chicken Pox, Measles, Mumps, Novel Coronavirus, Pertussis (Whooping Cough) - Past Surgical History Head Surgeries/Procedures: Reports: None HEENT Surgical History: Reports: Cataract Surgery, Oral Surgery, Tonsillectomy Cardiovascular Surgical History: Reports: Coronary Artery Bypass, Pacer Respiratory Surgical History: Reports: None GI Surgical History: Reports: Appendectomy, Cholecystectomy, Colon, Colonoscopy, EGD Male Surgical History: Reports: None Endocrine Surgical History: Reports: None Neurological Surgical History: Reports: Other (See Below) Other Neurological Surgeries/Procedures: Does have hydrocephalus but is unable to have a shunt placed at this time due to poor cardiology function, per Musculoskeletal Surgical History: Reports: Hip Replacement Other Musculoskeletal Surgeries/Procedures:: left side hip replacement, right finger pinning Oncologic Surgical History: Reports: Other (See Below) Other Oncologic Surgeries/Procedures: right ear Dermatological Surgical History: Reports: Other (See Below) - Past Imaging History Past Imaging History: Reports: Angiography, Cardiac Echo, Xray Social & Family History - Family History Family Medical History: No Pertinent Family History Oncologic: Reports: Bladder, Lung - Tobacco Use Tobacco Use Status *Q: Never Tobacco User - Caffeine Use Caffeine Use: Reports: Coffee - Recreational Drug Use Recreational Drug Use: No - Living Situation & Occupation Living situation: Reports: Occupation: Retired H&P Review of Systems - Review of Systems: Review Of Systems: See Below General: Reports: Weakness, Fatigue, Weight Loss HEENT: Reports: No Symptoms Pulmonary: Reports: No Symptoms Cardiovascular: Reports: No Symptoms Gastrointestinal: Reports: Constipation, Decreased Appetite Genitourinary: Reports: Retention Musculoskeletal: Reports: Muscle Stiffness Skin: Reports: Bruising. Denies: Wound Psychiatric: Reports: Mood Lability Neurological: Reports: Difficulty Walking, Weakness, Gait Disturbance. Denies: Confusion, Dizziness, Tingling, Tremors Hematologic/Lymphatic: Reports: Anemia Immunologic: Reports: No Symptoms Exam - Exam Exam: See Below - Vital Signs Vital Signs: Last Vital Signs Temp 98.3 F 07/09/21 06:35 Pulse 62 07/09/21 06:35 Resp 18 07/09/21 06:35 BP 98/41 L 07/09/21 06:35 Pulse Ox 95 07/09/21 06:35 Weight: 146 lb 13.246 oz - Exam Quality Assessment: No: Supplemental Oxygen General: Alert, Oriented, Cooperative. No: Mild Distress HEENT: EOMI, Hearing Intact, PERRLA. No: Mucosa Moist & Evaro Neck: Supple Lungs: Clear to Auscultation, Normal Respiratory Effort Cardiovascular: Regular Rate, Regular Rhythm GI/Abdominal Exam: Soft. No: Distended, Guarding (Male) Exam: No Hernia Back Exam: No: Muscle Spasm Extremities: Normal Inspection Peripheral Pulses: 2+: Radial (L), Radial (R) Skin: Warm, Dry, Intact Neurological: Normal Speech, Normal Tone, Sensation Intact. No: Normal Gait, Focal Deficit Neuro Extensive - Mental Status: Alert, Oriented x3, Normal Mood/Affect, Normal Cognition, Memory Intact Neuro Extensive - Motor, Sensory, Reflexes: CN II-XII Intact. No: Normal Gait, Dysarthria Psychiatric: Alert, Normal Affect - Patient Data Lab Results Last 24 hrs: Laboratory Results - last 24 hr 07/09/21 07/09/21 07/09/21 Range/Units 00:10 00:10 00:10 WBC 6.04 (5.00-10.00) 10^3/uL RBC 3.80 L (4.50-6.00) 10^6/uL Hgb 11.6 L (13.0-17.0) g/dL Hct 33.7 L (40.0-52.0) % MCV 88.7 (82.0-92.0) fL MCH 30.5 (27.0-31.0) pg MCHC 34.4 (32.0-36.0) g/dL RDW 13.4 (11.5-14.5) % Plt Count 124 L (150-400) 10^3/uL MPV 9.8 (7.4-10.4) fL Immature Gran % (Auto) 0.2 (0.0-5.0) % Neut % (Auto) 80.2 H (50.0-70.0) % Lymph % (Auto) 8.6 L (20.0-40.0) % [place] % (Auto) 8.8 H (2.0-8.0) % Eos % (Auto) 1.5 (1.0-3.0) % Baso % (Auto) 0.7 (0.0-1.0) % Neut # (Auto) 4.85 (2.50-7.00) 10^3/uL Lymph # (Auto) 0.52 L (1.00-4.00) 10^3/uL [place] # (Auto) 0.53 (0.10-0.80) 10^3/uL Eos # (Auto) 0.09 L (0.10-0.30) 10^3/uL Baso # (Auto) 0.04 (0.00-0.10) 10^3/uL Immature Gran # (Auto) 0.01 (0.00-0.50) 10^3/uL Sodium 136 (136-145) mmol/L Potassium 4.1 (3.5-5.1) mmol/L Chloride 99 (98-107) mmol/L Carbon Dioxide 22.6 (21.0-32.0) mmol/L Anion Gap 18.5 H (5-15) mmol/L BUN 11 (7-18) mg/dL Creatinine 0.88 (0.51-1.17) mg/dL Est Cr Clr Drug Dosing TNP Estimated GFR (MDRD) > 60 mL/min Glucose 100 (70-140) mg/dL Lactic Acid 3.0 H (0.4-2.0) mmol/L Calcium 8.9 (8.7-10.3) mg/dL Total Bilirubin 2.4 H (0.2-1.0) mg/dL AST 28 (15-37) U/L ALT 13 L (14-63) U/L Alkaline Phosphatase 63 (46-116) U/L Creatine Kinase 430 H* (26-276) U/L Troponin I High Sens 24.100 (0-76.000) pg/mL C-Reactive Protein < 0.4 (0.0-0.9) mg/dL Total Protein 6.7 (6.4-8.2) g/dL Albumin 3.81 (3.40-5.00) g/dL Specimen Type Urine Color (YELLOW) Urine Appearance (CLEAR) Urine pH (5.0-9.0) Ur Specific [place] (1.005-1.030) Urine Protein (NEGATIVE) mg/dL Urine Glucose (UA) (NEGATIVE) mg/dL Urine Ketones (NEGATIVE) mg/dL Urine Occult Blood (NEGATIVE) Urine Nitrite (NEGATIVE) Urine Bilirubin (NEGATIVE) Urine Urobilinogen (0.2-1.0) E.U./dL Ur Leukocyte Esterase (NEGATIVE) Urine RBC (0-5) /HPF Urine WBC (0-5) /HPF Ur Epithelial Cells /LPF Urine Bacteria (NONE TO FEW) /HPF SARS CoV-2 RNA Rapid BRUNO (NEGATIVE) 07/09/21 07/09/21 07/09/21 Range/Units 00:12 00:35 07:15 WBC 4.79 L (5.00-10.00) 10^3/uL RBC 3.37 L (4.50-6.00) 10^6/uL Hgb 10.4 L (13.0-17.0) g/dL Hct 30.5 L (40.0-52.0) % MCV 90.5 (82.0-92.0) fL MCH 30.9 (27.0-31.0) pg MCHC 34.1 (32.0-36.0) g/dL RDW 13.4 (11.5-14.5) % Plt Count 121 L (150-400) 10^3/uL MPV 9.8 (7.4-10.4) fL Immature Gran % (Auto) 0.2 (0.0-5.0) % Neut % (Auto) 74.4 H (50.0-70.0) % Lymph % (Auto) 13.8 L (20.0-40.0) % [place] % (Auto) 10.2 H (2.0-8.0) % Eos % (Auto) 0.8 L (1.0-3.0) % Baso % (Auto) 0.6 (0.0-1.0) % Neut # (Auto) 3.56 (2.50-7.00) 10^3/uL Lymph # (Auto) 0.66 L (1.00-4.00) 10^3/uL [place] # (Auto) 0.49 (0.10-0.80) 10^3/uL Eos # (Auto) 0.04 L (0.10-0.30) 10^3/uL Baso # (Auto) 0.03 (0.00-0.10) 10^3/uL Immature Gran # (Auto) 0.01 (0.00-0.50) 10^3/uL Sodium (136-145) mmol/L Potassium (3.5-5.1) mmol/L Chloride (98-107) mmol/L Carbon Dioxide (21.0-32.0) mmol/L Anion Gap (5-15) mmol/L BUN (7-18) mg/dL Creatinine (0.51-1.17) mg/dL Est Cr Clr Drug Dosing Estimated GFR (MDRD) mL/min Glucose (70-140) mg/dL Lactic Acid (0.4-2.0) mmol/L Calcium (8.7-10.3) mg/dL Total Bilirubin (0.2-1.0) mg/dL AST (15-37) U/L ALT (14-63) U/L Alkaline Phosphatase (46-116) U/L Creatine Kinase (26-276) U/L Troponin I High Sens (0-76.000) pg/mL C-Reactive Protein (0.0-0.9) mg/dL Total Protein (6.4-8.2) g/dL Albumin (3.40-5.00) g/dL Specimen Type Ur[place] Urine Color Yellow (YELLOW) Urine Appearance Slightly cloudy H (CLEAR) Urine pH 7.5 (5.0-9.0) Ur Specific [place] 1.015 (1.005-1.030) Urine Protein Negative (NEGATIVE) mg/dL Urine Glucose (UA) Negative (NEGATIVE) mg/dL Urine Ketones Trace H (NEGATIVE) mg/dL Urine Occult Blood Moderate H (NEGATIVE) Urine Nitrite Negative (NEGATIVE) Urine Bilirubin Negative (NEGATIVE) Urine Urobilinogen 4.0 H (0.2-1.0) E.U./dL Ur Leukocyte Esterase Small H (NEGATIVE) Urine RBC 10-20 H (0-5) /HPF Urine WBC 5-10 H (0-5) /HPF Ur Epithelial Cells Occasional /LPF Urine Bacteria Moderate H (NONE TO FEW) /HPF SARS CoV-2 RNA Rapid BRUNO Negative (NEGATIVE) 07/09/21 07/09/21 Range/Units 07:15 07:15 WBC (5.00-10.00) 10^3/uL RBC (4.50-6.00) 10^6/uL Hgb (13.0-17.0) g/dL Hct (40.0-52.0) % MCV (82.0-92.0) fL MCH (27.0-31.0) pg MCHC (32.0-36.0) g/dL RDW (11.5-14.5) % Plt Count (150-400) 10^3/uL MPV (7.4-10.4) fL Immature Gran % (Auto) (0.0-5.0) % Neut % (Auto) (50.0-70.0) % Lymph % (Auto) (20.0-40.0) % [place] % (Auto) (2.0-8.0) % Eos % (Auto) (1.0-3.0) % Baso % (Auto) (0.0-1.0) % Neut # (Auto) (2.50-7.00) 10^3/uL Lymph # (Auto) (1.00-4.00) 10^3/uL [place] # (Auto) (0.10-0.80) 10^3/uL Eos # (Auto) (0.10-0.30) 10^3/uL Baso # (Auto) (0.00-0.10) 10^3/uL Immature Gran # (Auto) (0.00-0.50) 10^3/uL Sodium 137 (136-145) mmol/L Potassium 3.7 (3.5-5.1) mmol/L Chloride 102 (98-107) mmol/L Carbon Dioxide 25.5 (21.0-32.0) mmol/L Anion Gap 13.2 (5-15) mmol/L BUN 11 (7-18) mg/dL Creatinine 0.87 (0.51-1.17) mg/dL Est Cr Clr Drug Dosing 57.93 Estimated GFR (MDRD) > 60 mL/min Glucose 87 (70-140) mg/dL Lactic Acid 1.0 (0.4-2.0) mmol/L Calcium 8.4 L (8.7-10.3) mg/dL Total Bilirubin 2.3 H (0.2-1.0) mg/dL AST 26 (15-37) U/L ALT 20 (14-63) U/L Alkaline Phosphatase 48 (46-116) U/L Creatine Kinase 534 H* (26-276) U/L Troponin I High Sens (0-76.000) pg/mL C-Reactive Protein (0.0-0.9) mg/dL Total Protein 5.6 L (6.4-8.2) g/dL Albumin 3.05 L (3.40-5.00) g/dL Specimen Type Urine Color (YELLOW) Urine Appearance (CLEAR) Urine pH (5.0-9.0) Ur Specific [place] (1.005-1.030) Urine Protein (NEGATIVE) mg/dL Urine Glucose (UA) (NEGATIVE) mg/dL Urine Ketones (NEGATIVE) mg/dL Urine Occult Blood (NEGATIVE) Urine Nitrite (NEGATIVE) Urine Bilirubin (NEGATIVE) Urine Urobilinogen (0.2-1.0) E.U./dL Ur Leukocyte Esterase (NEGATIVE) Urine RBC (0-5) /HPF Urine WBC (0-5) /HPF Ur Epithelial Cells /LPF Urine Bacteria (NONE TO FEW) /HPF SARS CoV-2 RNA Rapid BRUNO (NEGATIVE) Result Diagrams: 07/12/21 07:05 07/12/21 07:05 Sepsis Event Note - Evaluation Sepsis Screening Result: No Definite Risk - Focused Exam Vital Signs: Vital Signs Temp Pulse Pulse Resp BP BP Pulse Ox 07/09/21 06:35 98.3 F 62 18 98/41 L 95 07/09/21 03:00 99.2 F 72 20 111/46 L 96 07/09/21 02:39 128/61 07/09/21 02:38 62 128/61 07/09/21 01:46 97.3 F 62 19 128/61 97 07/09/21 01:34 07/09/21 01:15 71 12 130/70 97 07/09/21 00:28 97.6 F 75 17 149/63 H 98 07/09/21 00:00 72 19 149/72 H 96 Pulse Ox 07/09/21 06:35 07/09/21 03:00 07/09/21 02:39 07/09/21 02:38 07/09/21 01:46 07/09/21 01:34 96 07/09/21 01:15 07/09/21 00:28 07/09/21 00:00 *Q Meaningful Use (ADM) - VTE *Q VTE Pharmacological Contraindications *Q: Risk of Bleeding Problem List Initiated/Reviewed/Updated: Yes Orders Last 24hrs: Active Orders 24 hr Category Date Time Status Patient Status [ADT] Routine ADT 07/09/21 01:25 Active Intake and Output [RC] 1400,2200,0600 Care 07/09/21 01:35 Active Oxygen Therapy [RC] PRN Care 07/09/21 01:34 Active Peripheral IV Care [RC] . DIRECTED Care 07/09/21 00:03 Active Up With Assistance [RC] ASDIRECTED Care 07/09/21 01:34 Active VTE/DVT Education [RC] PER UNIT ROUTINE Care 07/09/21 01:34 Active Vital Signs [RC] 03,07,11,15,19,23 Care 07/09/21 01:34 Active Regular Diet [DIET] Diet 07/09/21 Breakfast Active CULTURE URINE [RM] Stat Lab 07/09/21 00:35 Received Acetaminophen [TylenoL] Med 07/09/21 01:34 Active 650 mg PO Q4H PRN Acetaminophen/HYDROcodone [[place] 325-10 MG] Med 07/09/21 01:42 Active 1 tab PO TID PRN FLUoxetine [PROzac] Med 07/09/21 09:00 Active 20 mg PO DAILY Furosemide [Lasix] Med 07/09/21 09:00 Active 20 mg PO DAILY Levofloxacin/Dextrose 5%-Water [Levaquin in D5W 500 MG/ Med 07/09/21 01:30 Active 100 ML] 500 mg Premix Bag 1 bag IV Q24H Sodium Chloride 0.9% [Normal Saline] 1,000 ml Med 07/09/21 01:45 Active IV ASDIRECTED Sodium Chloride 0.9% [Saline Flush] Med 07/09/21 00:02 Active 10 ml FLUSH Q8HR PRN Tamsulosin [Flomax] Med 07/09/21 02:30 Active 0.4 mg PO BEDTIME Terazosin [Hytrin] Med 07/09/21 02:15 Active 2 mg PO BEDTIME carvediloL [Coreg] Med 07/09/21 02:30 Active 3.125 mg PO BIDMEALS polyethylene glycoL 3350 [MiraLAX] Med 07/09/21 09:00 Active 17 gm PO DAILY Peripheral IV Insertion Adult [OM.PC] Stat Oth 07/09/21 00:02 Ordered VTE Pharmacological Contraindications [AST] Per Unit Oth 07/09/21 01:34 Ordered Routine Code Status [Resuscitation Status] Stat Resus Stat 07/09/21 00:31 Ordered EKG 12 Lead [EK] Stat Ther 07/09/21 00:02 Stop Req Medication Orders Acetaminophen (Acetaminophen 325 Mg Tab) 650 mg PO Q4H PRN PRN Reason: Pain (Mild 1-3)/fever Hydrocodone Bitart/Acetaminophen (Acetaminophen/Hydrocodone 325-10 Mg Tab) 1 tab PO TID PRN PRN Reason: Pain Last Admin: 07/09/21 03:45 Dose: 1 tab Documented by: JASWANT Carvedilol (Carvedilol 6.25 Mg Tab) 3.125 mg PO BIDMEALS [facility] Last Admin: 07/09/21 02:38 Dose: 3.125 mg Documented by: NIKOESIGomez Fluoxetine HCl (Fluoxetine 10 Mg Cap) 20 mg PO DAILY DANYA Furosemide (Furosemide 40 Mg Tab) 20 mg PO DAILY [facility] Levofloxacin/Dextrose 500 mg/ (Premix) 100 mls @ 100 mls/hr IV Q24H [facility] Last Admin: 07/09/21 02:23 Dose: 100 mls/hr Documented by: NIKOESIL Sodium Chloride (Normal Saline) 1,000 mls @ 125 mls/hr IV ASDIRECTED [facility] Last Admin: 07/09/21 04:14 Dose: 125 mls/hr Documented by: JASWANT Polyethylene Glycol (Polyethylene Glycol 3350 Powder 17 Gm Packet) 17 gm PO DAILY [facility] Sodium Chloride (Sodium Chloride 0.9% 10 Ml Syringe) 10 ml FLUSH Q8HR PRN PRN Reason: keep vein open Last Admin: 07/09/21 02:30 Dose: 10 ml Documented by: NIKOESIL Tamsulosin HCl (Tamsulosin 0.4 Mg Cap.Er) 0.4 mg PO BEDTIME [facility] Last Admin: 07/09/21 02:37 Dose: 0.4 mg Documented by: CALESIL Terazosin HCl (Terazosin 1 Mg Cap) 2 mg PO BEDTIME [facility] Last Admin: 07/09/21 02:39 Dose: 2 mg Documented by: CURTIS Assessment/Plan Comment:: History of present illness Bryant is an 80-year-old gentleman that was admitted INPT status through the ED after sustaining a fall at home due to weakness. He was found by his spouse after she was returning from work and appeared to have lied on floor ~7hrs Requiring neighbor assistance to transport him to ED. ED clinical course Vital signs, acceptable, MAP 72 Lactate, 3.0, repeat 1.0 CK, [address], No acute process CXR; no acute process Primary hospital problems --Rhabdomyolysis, mild --Weakness, profound --Mechanical fall home --Asymptomatic bacteriuria ---Dementia, early stages, contributable Chronic problems --HFpEF, BB, ?ARB hx. 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 FEN: IVF NS at 125 cc/h, tolerating PO, poor dietary intake Disposition/overall plan --Meets inpatient qualification for close monitoring IV fluids, electrolytes, rhabdomyolysis sequela --Discontinue antibiotics, will await urine cx. --HOLD Lasix --bladder scan after void --SS PT Nutrition CS. - Mortality Measure Prognosis:: Good
[2021-07-09] MEDS: FLUoxetine 10 MG Cap PO SCH (10:10)
[2021-07-09] MEDS: Polyethylene Glycol 3350 Powder 17 GM Packet PO SCH ×2 (10:11→10:38)
[2021-07-09] MEDS ORDERED: Terazosin 1 MG Cap PO SCH (21:00)
[2021-07-09] MEDS ORDERED: Tamsulosin 0.4 MG Cap.ER PO SCH (21:00)
[2021-07-10] MEDS: Sodium Chloride 0.9% 1,000 ML IV SCH (05:58)
[2021-07-10 08:53] LABS: ANION GAP 13.2 mmol/L (5-15); CHLORIDE,CL 104 mmol/L (98-107); SODIUM,NA 137 mmol/L (136-145)
--- NOTE | 2021-07-10 09:07 | PCM.PN ---
- General Info Date of Service: 07/10/21 Functional Status: Reports: Pain Controlled, Tolerating Diet, New Symptoms (urinary retention). Denies: Ambulating, Urinating - Review of Systems General: Reports: Weakness, Fatigue, Malaise, Appetite. Denies: Chills, Night Sweats HEENT: Reports: No Symptoms Pulmonary: Reports: No Symptoms Cardiovascular: Reports: No Symptoms Gastrointestinal: Reports: Decreased Appetite. Denies: Constipation, Nausea, Vomiting Genitourinary: Reports: Retention. Denies: Incontinence Musculoskeletal: Reports: No Symptoms Skin: Reports: Dryness, Bruising Neurological: Reports: Pre-Existing Deficit, Difficulty Walking, Weakness. Denies: Confusion, Paresthesia, Tremors, Trouble Speaking, Change in Speech Psychiatric: Denies: Confusion, Anxiety, Agitation - Patient Data Vitals - Most Recent: Last Vital Signs Temp 98.2 F 07/10/21 06:19 Pulse 60 07/10/21 06:19 Resp 18 07/10/21 06:19 BP 125/54 L 07/10/21 06:19 Pulse Ox 95 07/10/21 06:19 Weight - Most Recent: 146 lb 13.246 oz I&O - Last 24 Hours: Intake & Output 07/09/21 07/10/21 07/10/21 22:59 06:59 14:59 Intake Total 1411 1303 Output Total 1500 Balance -89 1303 Lab Results Last 24 Hours: Laboratory Results - last 24 hr 07/10/21 Range/Units 07:10 WBC 4.62 L (5.00-10.00) 10^3/uL RBC 3.11 L (4.50-6.00) 10^6/uL Hgb 9.6 L (13.0-17.0) g/dL Hct 28.4 L (40.0-52.0) % MCV 91.3 (82.0-92.0) fL MCH 30.9 (27.0-31.0) pg MCHC 33.8 (32.0-36.0) g/dL RDW 13.8 (11.5-14.5) % Plt Count 99 L (150-400) 10^3/uL MPV 10.0 (7.4-10.4) fL Immature Gran % (Auto) 0.0 (0.0-5.0) % Neut % (Auto) 64.2 (50.0-70.0) % Lymph % (Auto) 21.4 (20.0-40.0) % [place] % (Auto) 9.3 H (2.0-8.0) % Eos % (Auto) 4.5 H (1.0-3.0) % Baso % (Auto) 0.6 (0.0-1.0) % Neut # (Auto) 2.96 (2.50-7.00) 10^3/uL Lymph # (Auto) 0.99 L (1.00-4.00) 10^3/uL [place] # (Auto) 0.43 (0.10-0.80) 10^3/uL Eos # (Auto) 0.21 (0.10-0.30) 10^3/uL Baso # (Auto) 0.03 (0.00-0.10) 10^3/uL Immature Gran # (Auto) 0.00 (0.00-0.50) 10^3/uL Med Orders - Current: Current Medications Acetaminophen (Acetaminophen 325 Mg Tab) 650 mg PO Q4H PRN PRN Reason: Pain (Mild 1-3)/fever Hydrocodone Bitart/Acetaminophen (Acetaminophen/Hydrocodone 325-10 Mg Tab) 1 tab PO TID PRN PRN Reason: Pain Last Admin: 07/09/21 21:41 Dose: 1 tab Documented by: Carvedilol (Carvedilol 6.25 Mg Tab) 3.125 mg PO BIDMEALS [facility] Last Admin: 07/09/21 18:27 Dose: 3.125 mg Documented by: Fluoxetine HCl (Fluoxetine 10 Mg Cap) 20 mg PO DAILY [facility] Last Admin: 07/09/21 10:10 Dose: 20 mg Documented by: Sodium Chloride (Normal Saline) 1,000 mls @ 100 mls/hr IV ASDIRECTED [facility] Last Admin: 07/10/21 05:58 Dose: 100 mls/hr Documented by: Polyethylene Glycol (Polyethylene Glycol 3350 Powder 17 Gm Packet) 17 gm PO DAILY [facility] Last Admin: 07/09/21 10:38 Dose: Not Given Documented by: Sodium Chloride (Sodium Chloride 0.9% 10 Ml Syringe) 10 ml FLUSH Q8HR PRN PRN Reason: keep vein open Last Admin: 07/09/21 02:30 Dose: 10 ml Documented by: Tamsulosin HCl (Tamsulosin 0.4 Mg Cap.Er) 0.4 mg PO BEDTIME [facility] Last Admin: 07/09/21 20:08 Dose: 0.4 mg Documented by: Terazosin HCl (Terazosin 1 Mg Cap) 2 mg PO BEDTIME [facility] Last Admin: 07/09/21 20:09 Dose: 2 mg Documented by: Discontinued Medications Carvedilol (Carvedilol 6.25 Mg Tab) 3.125 mg PO BIDMEALS [facility] Furosemide (Furosemide 40 Mg Tab) 20 mg PO DAILY [facility] Last Admin: 07/09/21 12:22 Dose: Not Given Documented by: Sodium Chloride (Normal Saline) 1,000 mls @ 999 mls/hr IV .BOLUS ONE Stop: 07/09/21 02:28 Last Admin: 07/09/21 02:23 Dose: 999 mls/hr Documented by: Levofloxacin/Dextrose 500 mg/ (Premix) 100 mls @ 100 mls/hr IV Q24H [facility] Last Admin: 07/09/21 02:23 Dose: 100 mls/hr Documented by: Tamsulosin HCl (Tamsulosin 0.4 Mg Cap.Er) 0.4 mg PO BEDTIME [facility] Terazosin HCl (Terazosin 1 Mg Cap) 2 mg PO BEDTIME [facility] - Exam Quality Assessment: No: Supplemental Oxygen General: Alert, Oriented, Cooperative, No Acute Distress Neck: Supple Lungs: Clear to Auscultation, Normal Respiratory Effort Cardiovascular: Regular Rate, Regular Rhythm GI/Abdominal Exam: Normal Bowel Sounds, Soft, No Distention Back Exam: No: CVA Tenderness (R) Extremities: No Pedal Edema Peripheral Pulses: 2+: Radial (L), Radial (R) Skin: Warm, Dry, Intact Neurological: Normal Speech, Normal Tone, Sensation Intact Psy/Mental Status: Alert, Normal Affect, Normal Mood - Patient Data Lab Results Last 24 hrs: Laboratory Results - last 24 hr 07/10/21 Range/Units 07:10 WBC 4.62 L (5.00-10.00) 10^3/uL RBC 3.11 L (4.50-6.00) 10^6/uL Hgb 9.6 L (13.0-17.0) g/dL Hct 28.4 L (40.0-52.0) % MCV 91.3 (82.0-92.0) fL MCH 30.9 (27.0-31.0) pg MCHC 33.8 (32.0-36.0) g/dL RDW 13.8 (11.5-14.5) % Plt Count 99 L (150-400) 10^3/uL MPV 10.0 (7.4-10.4) fL Immature Gran % (Auto) 0.0 (0.0-5.0) % Neut % (Auto) 64.2 (50.0-70.0) % Lymph % (Auto) 21.4 (20.0-40.0) % [place] % (Auto) 9.3 H (2.0-8.0) % Eos % (Auto) 4.5 H (1.0-3.0) % Baso % (Auto) 0.6 (0.0-1.0) % Neut # (Auto) 2.96 (2.50-7.00) 10^3/uL Lymph # (Auto) 0.99 L (1.00-4.00) 10^3/uL [place] # (Auto) 0.43 (0.10-0.80) 10^3/uL Eos # (Auto) 0.21 (0.10-0.30) 10^3/uL Baso # (Auto) 0.03 (0.00-0.10) 10^3/uL Immature Gran # (Auto) 0.00 (0.00-0.50) 10^3/uL Result Diagrams: 07/11/21 07:05 07/11/21 07:05 Sepsis Event Note - Evaluation Sepsis Screening Result: No Definite Risk - Focused Exam Vital Signs: Vital Signs Temp Pulse Resp BP Pulse Ox 07/10/21 06:19 98.2 F 60 18 125/54 L 95 07/10/21 03:00 98.1 F 61 18 111/51 L 95 07/09/21 23:00 98.3 F 60 18 113/51 L 95 - Problem List Review Problem List Initiated/Reviewed/Updated: Yes - My Orders Last 24 Hours: My Active Orders 07/09/21 10:05 CM Social Work Follow Up [CM] Routine 07/09/21 10:52 Consult to Physical Therapy [PT Evaluation and Treatment] [CONS] Routine 07/09/21 20:28 Bladder Scan [RC] ASDIRECTED - Plan Plan:: History of present illness Bryant is an 80-year-old gentleman that was admitted INPT status through the ED after sustaining a fall at home due to weakness. He was found by his spouse after she was returning from work and appeared to have lied on floor ~7hrs Requiring neighbor assistance to transport him to ED. ED clinical course Vital signs, acceptable, MAP 72 Lactate, 3.0, repeat 1.0 CK, [address], No acute process CXR; no acute process Hospital course 07/10/2021, poor urinary output yesterday therefore ordered post void bladder scan over 700 cc retention. Straight cath x1 throughout the night orders if a second straight cath needed to keep indwellilng however patient's refused. Appears to be urinating some. Spouse refusing to take patient home due to level of care required, desires fpc however she has yet to communicate this to patient. 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 no fluid overload, reduce IV, monitor closely --GERD, hx of bleeding ulcer while on Eliquis --Depression/Anxiety, Prozac, stable --BPH, BP good, strict I/O; bladder scan after void FEN: IVF NS at 75 cc/h, tolerating PO, poor dietary intake, encourage both PPX: ICD/teds, platelets 99 Disposition/overall plan --Meets inpatient qualification for close monitoring IV fluids, electrolytes, rhabdomyolysis sequela --Cont holding Lasix, consider restarting if CK cont to increase. --Decrease IV fluids to 75 cc/h --Increase Flomax --Bladder scan again today post void --ICD/teds, platelets 99 --Continue to reinforce proper use of opioids, refer to charge nurse Dayan --Ensure spouse on rounds in a.m. --E --Ensure labs are posted before 0800
[2021-07-10] MEDS: Acetaminophen/HYDROcodone 325-10 MG Tab PO PRN ×2 (09:08→20:24)
[2021-07-10] MEDS: Polyethylene Glycol 3350 Powder 17 GM Packet PO SCH (09:08)
[2021-07-10] MEDS: Carvedilol 6.25 MG Tab PO SCH ×2 (09:09→18:29)
[2021-07-10] MEDS: FLUoxetine 10 MG Cap PO SCH (09:10)
[2021-07-10] MEDS ORDERED: Potassium Bicarbonate 25 MEQ Tab.EFF PO ONE (17:00)
[2021-07-10] MEDS ORDERED: Carboxymethylcellulose Sodium 0.5% Ophth Soln 15 ML Bottle EYEBOTH PRN (20:06)
[2021-07-10] MEDS: Terazosin 1 MG Cap PO SCH (20:24)
[2021-07-10] MEDS: Tamsulosin 0.4 MG Cap.ER PO SCH (20:24)
[2021-07-11] MEDS: Acetaminophen/HYDROcodone 325-10 MG Tab PO PRN ×2 (05:02→20:11)
[2021-07-11 07:55] LABS: ANION GAP 13.1 mmol/L (5-15); CHLORIDE,CL 104 mmol/L (98-107); SODIUM,NA 137 mmol/L (136-145)
[2021-07-11] MEDS: Polyethylene Glycol 3350 Powder 17 GM Packet PO SCH (09:04)
[2021-07-11] MEDS: FLUoxetine 10 MG Cap PO SCH (09:04)
[2021-07-11] MEDS: Carvedilol 6.25 MG Tab PO SCH ×2 (09:47→18:07)
--- NOTE | 2021-07-11 10:00 | PCM.PN ---
- General Info Date of Service: 07/11/21 Admission Dx/Problem (Free Text): Admission Diagnosis/Problem Admission Diagnosis/Problem Rhabdomyolysis - Review of Systems Systems Review Comment:: Bryant is seen today on inpatient rounds. He was admitted for rhabdomyolysis after falling at home and not being able to get up and his was not home. Reportedly he had his cellphone with him but was too weak to even use that. He has been receiving low rate IVF's given his hx of HFrEF, last echo was in 2018 with an EF of around 35%. When I see him this morning his is present and she has him standing in the bathroom with his walker at the sink freshening up. Per nursing and Minal (his ) he is doing much better than when he first came in. Per his , his home furosemide dose is 20 mg PO daily as the 40 mg PO daily was causing too may bathroom trips and she has been monitoring his edema and he does well at the 20 mg dose. - Patient Data Vitals - Most Recent: Last Vital Signs Temp 97.8 F 07/11/21 06:50 Pulse 63 07/11/21 09:47 Resp 20 07/11/21 06:50 BP 125/55 L 07/11/21 09:47 Pulse Ox 96 07/11/21 06:50 Weight - Most Recent: 146 lb 13.246 oz I&O - Last 24 Hours: Intake & Output 07/10/21 07/11/21 07/11/21 22:59 06:59 14:59 Intake Total 1418 971 Balance 1418 971 Lab Results Last 24 Hours: Laboratory Results - last 24 hr 07/11/21 07/11/21 Range/Units 07:05 07:05 WBC 4.93 L (5.00-10.00) 10^3/uL RBC 3.33 L (4.50-6.00) 10^6/uL Hgb 10.3 L (13.0-17.0) g/dL Hct 30.2 L (40.0-52.0) % MCV 90.7 (82.0-92.0) fL MCH 30.9 (27.0-31.0) pg MCHC 34.1 (32.0-36.0) g/dL RDW 13.7 (11.5-14.5) % Plt Count 110 L (150-400) 10^3/uL MPV 9.9 (7.4-10.4) fL Immature Gran % (Auto) 0.2 (0.0-5.0) % Neut % (Auto) 66.3 (50.0-70.0) % Lymph % (Auto) 18.1 L (20.0-40.0) % [place] % (Auto) 8.7 H (2.0-8.0) % Eos % (Auto) 6.3 H (1.0-3.0) % Baso % (Auto) 0.4 (0.0-1.0) % Neut # (Auto) 3.27 (2.50-7.00) 10^3/uL Lymph # (Auto) 0.89 L (1.00-4.00) 10^3/uL [place] # (Auto) 0.43 (0.10-0.80) 10^3/uL Eos # (Auto) 0.31 H (0.10-0.30) 10^3/uL Baso # (Auto) 0.02 (0.00-0.10) 10^3/uL Immature Gran # (Auto) 0.01 (0.00-0.50) 10^3/uL Sodium 137 (136-145) mmol/L Potassium 3.7 (3.5-5.1) mmol/L Chloride 104 (98-107) mmol/L Carbon Dioxide 23.6 (21.0-32.0) mmol/L Anion Gap 13.1 (5-15) mmol/L BUN 12 (7-18) mg/dL Creatinine 0.87 (0.51-1.17) mg/dL Est Cr Clr Drug Dosing 57.93 mL/min Estimated GFR (MDRD) > 60 mL/min Glucose 84 (70-140) mg/dL Calcium 8.2 L (8.7-10.3) mg/dL Total Bilirubin 1.7 H (0.2-1.0) mg/dL AST 44 H (15-37) U/L ALT 17 (14-63) U/L Alkaline Phosphatase 46 (46-116) U/L Creatine Kinase 634 H* (26-276) U/L Total Protein 5.6 L (6.4-8.2) g/dL Albumin 3.07 L (3.40-5.00) g/dL Fredo Results Last 24 Hours: Microbiology 07/09/21 00:35 Urine Culture - Final Urine, Catheterized Med Orders - Current: Current Medications Acetaminophen (Acetaminophen 325 Mg Tab) 650 mg PO Q4H PRN PRN Reason: Pain (Mild 1-3)/fever Hydrocodone Bitart/Acetaminophen (Acetaminophen/Hydrocodone 325-10 Mg Tab) 1 tab PO TID PRN PRN Reason: Pain Last Admin: 07/11/21 05:02 Dose: 1 tab Documented by: Artificial Tears (Carboxymethylcellulose Sodium 0.5% Ophth Soln 15 Ml Bottle) 1 ml EYEBOTH Q2H PRN PRN Reason: Dry Eyes Last Admin: 07/10/21 20:25 Dose: 2 drop Documented by: Carvedilol (Carvedilol 6.25 Mg Tab) 3.125 mg PO BIDMEALS [facility] Last Admin: 07/11/21 09:47 Dose: 3.125 mg Documented by: Fluoxetine HCl (Fluoxetine 10 Mg Cap) 20 mg PO DAILY [facility] Last Admin: 07/11/21 09:04 Dose: 20 mg Documented by: Furosemide (Furosemide 20 Mg Tab) 20 mg PO DAILY [facility] Sodium Chloride (Normal Saline) 1,000 mls @ 100 mls/hr IV ASDIRECTED [facility] Last Infusion: 07/10/21 08:10 Dose: 75 mls/hr Documented by: Polyethylene Glycol (Polyethylene Glycol 3350 Powder 17 Gm Packet) 17 gm PO DAILY [facility] Last Admin: 07/11/21 09:04 Dose: 17 gm Documented by: Sodium Chloride (Sodium Chloride 0.9% 10 Ml Syringe) 10 ml FLUSH Q8HR PRN PRN Reason: keep vein open Last Admin: 07/09/21 02:30 Dose: 10 ml Documented by: Tamsulosin HCl (Tamsulosin 0.4 Mg Cap.Er) 0.8 mg PO BEDTIME [facility] Last Admin: 07/10/21 20:24 Dose: 0.8 mg Documented by: Terazosin HCl (Terazosin 1 Mg Cap) 2 mg PO BEDTIME [facility] Last Admin: 07/10/21 20:24 Dose: 2 mg Documented by: Discontinued Medications Carvedilol (Carvedilol 6.25 Mg Tab) 3.125 mg PO BIDMEALS [facility] Furosemide (Furosemide 40 Mg Tab) 20 mg PO DAILY [facility] Last Admin: 07/09/21 12:22 Dose: Not Given Documented by: Sodium Chloride (Normal Saline) 1,000 mls @ 999 mls/hr IV .BOLUS ONE Stop: 07/09/21 02:28 Last Admin: 07/09/21 02:23 Dose: 999 mls/hr Documented by: Levofloxacin/Dextrose 500 mg/ (Premix) 100 mls @ 100 mls/hr IV Q24H [facility] Last Admin: 07/09/21 02:23 Dose: 100 mls/hr Documented by: Potassium Bicarbonate (Potassium Bicarbonate 25 Meq Tab.Eff) 25 meq PO ONETIME ONE Stop: 07/10/21 17:01 Last Admin: 07/10/21 17:06 Dose: 25 meq Documented by: Tamsulosin HCl (Tamsulosin 0.4 Mg Cap.Er) 0.4 mg PO BEDTIME [facility] Tamsulosin HCl (Tamsulosin 0.4 Mg Cap.Er) 0.4 mg PO BEDTIME [facility] Last Admin: 07/09/21 20:08 Dose: 0.4 mg Documented by: Terazosin HCl (Terazosin 1 Mg Cap) 2 mg PO BEDTIME [facility] - Exam General: Alert, Oriented, Cooperative, No Acute Distress Lungs: Clear to Auscultation, Normal Respiratory Effort Cardiovascular: Regular Rate, Regular Rhythm, No Murmurs Extremities: Pedal Edema (Trace pedal edema bilaterally) - Patient Data Lab Results Last 24 hrs: Laboratory Results - last 24 hr 07/11/21 07/11/21 Range/Units 07:05 07:05 WBC 4.93 L (5.00-10.00) 10^3/uL RBC 3.33 L (4.50-6.00) 10^6/uL Hgb 10.3 L (13.0-17.0) g/dL Hct 30.2 L (40.0-52.0) % MCV 90.7 (82.0-92.0) fL MCH 30.9 (27.0-31.0) pg MCHC 34.1 (32.0-36.0) g/dL RDW 13.7 (11.5-14.5) % Plt Count 110 L (150-400) 10^3/uL MPV 9.9 (7.4-10.4) fL Immature Gran % (Auto) 0.2 (0.0-5.0) % Neut % (Auto) 66.3 (50.0-70.0) % Lymph % (Auto) 18.1 L (20.0-40.0) % [place] % (Auto) 8.7 H (2.0-8.0) % Eos % (Auto) 6.3 H (1.0-3.0) % Baso % (Auto) 0.4 (0.0-1.0) % Neut # (Auto) 3.27 (2.50-7.00) 10^3/uL Lymph # (Auto) 0.89 L (1.00-4.00) 10^3/uL [place] # (Auto) 0.43 (0.10-0.80) 10^3/uL Eos # (Auto) 0.31 H (0.10-0.30) 10^3/uL Baso # (Auto) 0.02 (0.00-0.10) 10^3/uL Immature Gran # (Auto) 0.01 (0.00-0.50) 10^3/uL Sodium 137 (136-145) mmol/L Potassium 3.7 (3.5-5.1) mmol/L Chloride 104 (98-107) mmol/L Carbon Dioxide 23.6 (21.0-32.0) mmol/L Anion Gap 13.1 (5-15) mmol/L BUN 12 (7-18) mg/dL Creatinine 0.87 (0.51-1.17) mg/dL Est Cr Clr Drug Dosing 57.93 mL/min Estimated GFR (MDRD) > 60 mL/min Glucose 84 (70-140) mg/dL Calcium 8.2 L (8.7-10.3) mg/dL Total Bilirubin 1.7 H (0.2-1.0) mg/dL AST 44 H (15-37) U/L ALT 17 (14-63) U/L Alkaline Phosphatase 46 (46-116) U/L Creatine Kinase 634 H* (26-276) U/L Total Protein 5.6 L (6.4-8.2) g/dL Albumin 3.07 L (3.40-5.00) g/dL Result Diagrams: 07/11/21 07:05 07/11/21 07:05 Fredo Results Last 24 hrs: Microbiology 07/09/21 00:35 Urine Culture - Final Urine, Catheterized Sepsis Event Note - Evaluation Sepsis Screening Result: No Definite Risk - Focused Exam Vital Signs: Vital Signs Temp Pulse Pulse Resp BP BP Pulse Ox 07/11/21 09:47 63 125/55 L 07/11/21 06:50 97.8 F 62 20 142/58 H 96 - Problem List Review Problem List Initiated/Reviewed/Updated: Yes - My Orders Last 24 Hours: My Active Orders 07/10/21 20:06 Carboxymethylcellulose Sodium [Refresh Tears 0.5%] 1 ml EYEBOTH Q2H PRN 07/11/21 09:45 Furosemide [Lasix] 20 mg PO DAILY 07/12/21 05:11 CBC WITH AUTO DIFF [HEME] AM COMPREHENSIVE METABOLIC PN,CMP [CHEM] AM CREATINE KINASE,CK [CHEM] AM - Plan Plan:: History of present illness Bryant is an 80-year-old gentleman that was admitted INPT status through the ED after sustaining a fall at home due to weakness. He was found by his spouse after she was returning from work and appeared to have lied on floor ~7hrs Requiring neighbor assistance to transport him to ED. ED clinical course Vital signs, acceptable, MAP 72 Lactate, 3.0, repeat 1.0 CK, [address], No acute process CXR; no acute process Hospital course 07/10/2021, poor urinary output yesterday therefore ordered post void bladder scan over 700 cc retention. Straight cath x1 throughout the night orders if a second straight cath needed to keep indwellilng however patient's refused. Appears to be urinating some. Spouse refusing to take patient home due to level of care required, desires half-way however she has yet to communicate this to patient. 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 no fluid overload, reduce IV, monitor closely --GERD, hx of bleeding ulcer while on Eliquis --Depression/Anxiety, Prozac, stable --BPH, BP good, strict I/O; bladder scan after void FEN: IVF NS at 75 cc/h, tolerating PO, poor dietary intake, encourage both PPX: ICD/teds, platelets 99 Disposition/overall plan --Meets inpatient qualification for close monitoring IV fluids, electrolytes, rhabdomyolysis sequela --Cont holding Lasix, consider restarting if CK cont to increase. --Decrease IV fluids to 75 cc/h --Increase Flomax --Bladder scan again today post void --ICD/teds, platelets 99 --Continue to reinforce proper use of opioids, refer to charge nurse Dayan --Ensure spouse on rounds in a.m. FRIDAY --Ensure labs are posted before 0800
[2021-07-11] MEDS: Furosemide 20 MG Tab PO SCH (10:03)
[2021-07-11] MEDS ORDERED: Carboxymethylcellulose Sodium 0.5% Ophth Soln 15 ML Bottle EYEBOTH PRN (16:24)
[2021-07-11] MEDS: Terazosin 1 MG Cap PO SCH (20:08)
[2021-07-11] MEDS: Tamsulosin 0.4 MG Cap.ER PO SCH (20:10)
[2021-07-12] MEDS: Sodium Chloride 0.9% 1,000 ML IV SCH (00:17)
[2021-07-12 06:34] VITALS: PULSE 60
[2021-07-12] MEDS: Carvedilol 6.25 MG Tab PO SCH (07:58)
[2021-07-12 07:59] VITALS: BP 145/63
[2021-07-12] MEDS: FLUoxetine 10 MG Cap PO SCH (08:01)
[2021-07-12] MEDS: Polyethylene Glycol 3350 Powder 17 GM Packet PO SCH (08:01)
[2021-07-12] MEDS: Furosemide 20 MG Tab PO SCH (08:01)
[2021-07-12 08:18] LABS: ANION GAP 12.2 mmol/L (5-15); CHLORIDE,CL 104 mmol/L (98-107); SODIUM,NA 138 mmol/L (136-145)
--- NOTE | 2021-07-12 09:18 | PCM.DCSUM1 ---
Discharge Summary - Hospital Course Diagnosis: Stroke: No - Discharge Data Discharge Date: 07/12/21 Discharge Disposition: Home, Self-Care 01 Condition: Good - Referral to Home Health Primary Care Physician: Maddie Hayes MD - Patient Summary/Data Consults: Consultations 07/09/21 10:52 Consult to Physical Therapy [PT Evaluation and Treatment] [CONS] Routine - Patient Instructions Diet: Regular Diet as Tolerated Activity: As Tolerated Driving: Do Not Drive Showering/Bathing: May Shower Notify Provider of: Increased Pain Other/Special Instructions: Straight cath daily NEEDED for urinary retention. His hydrocodone was DC'd during his hospital stay as the patient stated he was taking it for sleep. Re-educate regarding narcotics are NOT for sleep. Tylenol should be adequate pain control for this resident. -CMP with CK FRIDAY. -Have PT provide bladder training if able. -Avoid constipation as this will exacerbate urinary retention. -Will require ~800mL water per day. -- - Discharge Plan *PRESCRIPTION DRUG MONITORING PROGRAM REVIEWED*: Not Applicable *COPY OF PRESCRIPTION DRUG MONITORING REPORT IN PATIENT HUMA: Not Applicable Prescriptions/Med Rec: Acetaminophen [Pain Relief] 650 mg PO Q6HR PRN #180 tablet PRN Reason: Pain Home Medications: Home Meds Pantoprazole Sodium 20 mg PO DAILY 05/10/19 [History] Acetaminophen [Pain Relief] 650 mg PO Q6HR PRN #180 tablet 07/12/21 [Rx] Carboxymethylcellulose Sodium [Refresh Tears 0.5%] 0 ml EYEBOTH ASDIRECTED PRN bottle 07/12/21 [Rx] Carboxymethylcellulose Sodium [Refresh Tears 0.5%] 1 ml EYEBOTH Q2H PRN bottle 07/12/21 [Rx] FLUoxetine [PROzac] 20 mg PO DAILY #0 07/12/21 [Rx] Furosemide [Lasix] 20 mg PO DAILY #30 07/12/21 [Rx] Tamsulosin [Flomax] 0.4 mg PO BEDTIME #0 07/12/21 [Rx] Tamsulosin [Flomax] 0.8 mg PO BEDTIME cap.er 07/12/21 [Rx] Terazosin [Hytrin] 4 mg PO BEDTIME #0 07/12/21 [Rx] carvediloL [Carvedilol] 3.125 mg PO BIDMEALS #60 12/02/21 [Rx] polyethylene glycoL 3350 [MiraLAX] 17 gram PO DAILY #30 07/12/21 [Rx] Referrals: [facility] [Outside] - Discharge Summary/Plan Comment DC Time >30 min.: Yes Total # of Minutes for Discharge Time: 65 Discharge Summary/Plan Comment: Final diagnosis --Rhabdomyolysis, repeat CMP/CK Friday --Weakness, profound, PT OT --Urinary retention, suspect chronic, recently increased to Flomax, straight cath daily as needed --Asymptomatic bacteriuria, no abx needed. Get UA only if provider requests. --fall home --Dementia, early stages, contributable to fall --Opioid use, cont need to educate resident regard NOT for sleep. 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 He was found by his spouse after she was returning from work and appeared to have lied on floor ~7hrs Requiring neighbor assistance to transport him to ED. Hospital course 07/10/2021, poor urinary output yesterday therefore ordered post void bladder scan over 700 cc retention. Straight cath x1 throughout the night orders if a second straight cath needed to keep indwellilng however patient's refused. Appears to be urinating some. Spouse refusing to take patient home due to level of care required, desires care home however she has yet to communicate this to patient. CK increasing, will consider restarting lasix 07/11; He has been receiving low rate IVF's given his hx of HFrEF, last echo was in 2018 with an EF of around 35%. When I see him this morning his is present and she has him standing in the bathroom with his walker at the sink freshening up. Per nursing and Minal (his ) he is doing much better than when he first came in. Per his , his home furosemide dose is 20 mg PO daily as the 40 mg PO daily was causing too may bathroom trips and she has been monitoring his edema and he does well at the 20 mg dose. 07/12; sitting in chair this morning during rounds, spouse is also here on rounds. Patient is doing well, no pain, no nausea vomiting diarrhea, CK labs have not returned yet. Vital signs stable, no fever, spontaneously voiding however incontinent Medication changes/adjustments from home meds upon discharge Flomax, increased from 0.4 to 0.8 mg daily Terazosin, increased from 2 to 4 mg nightly Lasix 20 mg daily (at one point at home was on 40mg however spouse been giving a half a tab daily) DC'd hydrocodone Disposition --Will be DC to SN[facility]hab. --Straight cath daily NEEDED for urinary retention. --His hydrocodone was DC'd during his hospital stay as the patient stated he was taking it for sleep. Re-educate regarding narcotics are NOT for sleep. Tylenol should be adequate pain control for this resident. --Have PT provide bladder training if able --Avoid constipation as this will exacerbate urinary retention --Will require ~800mL water per day --CMP with CK FRIDAY - General Info Date of Service: 07/12/21 Functional Status: Reports: Pain Controlled, Urinating - Review of Systems General: Reports: Weakness. Denies: Fever Pulmonary: Reports: No Symptoms Cardiovascular: Reports: No Symptoms Gastrointestinal: Reports: No Symptoms Genitourinary: Reports: Frequency, Incontinence, Retention. Denies: Urgency Musculoskeletal: Reports: No Symptoms Skin: Reports: Bruising Neurological: Reports: Pre-Existing Deficit, Difficulty Walking, Weakness, Gait Disturbance. Denies: Confusion, Tremors Psychiatric: Reports: No Symptoms - Patient Data Vitals - Most Recent: Last Vital Signs Temp 97.9 F 07/12/21 06:34 Pulse 60 07/12/21 07:58 Resp 20 07/12/21 06:34 BP 145/63 H 07/12/21 07:58 Pulse Ox 93 L 07/12/21 06:34 Weight - Most Recent: 146 lb 13.246 oz I&O - Last 24 hours: Intake & Output 07/11/21 07/12/21 07/12/21 22:59 06:59 14:59 Intake Total 1338 1028 Balance 1338 1028 Lab Results - Last 24 hrs: Laboratory Results - last 24 hr 07/12/21 07/12/21 07/12/21 Range/Units 07:05 07:05 07:45 WBC 4.72 L (5.00-10.00) 10^3/uL RBC 3.19 L (4.50-6.00) 10^6/uL Hgb 9.9 L (13.0-17.0) g/dL Hct 29.0 L (40.0-52.0) % MCV 90.9 (82.0-92.0) fL MCH 31.0 (27.0-31.0) pg MCHC 34.1 (32.0-36.0) g/dL RDW 13.7 (11.5-14.5) % Plt Count 109 L (150-400) 10^3/uL MPV 9.6 (7.4-10.4) fL Immature Gran % (Auto) 0.2 (0.0-5.0) % Neut % (Auto) 63.8 (50.0-70.0) % Lymph % (Auto) 19.3 L (20.0-40.0) % Alcorn % (Auto) 9.1 H (2.0-8.0) % Eos % (Auto) 7.0 H (1.0-3.0) % Baso % (Auto) 0.6 (0.0-1.0) % Neut # (Auto) 3.01 (2.50-7.00) 10^3/uL Lymph # (Auto) 0.91 L (1.00-4.00) 10^3/uL Alcorn # (Auto) 0.43 (0.10-0.80) 10^3/uL Eos # (Auto) 0.33 H (0.10-0.30) 10^3/uL Baso # (Auto) 0.03 (0.00-0.10) 10^3/uL Immature Gran # (Auto) 0.01 (0.00-0.50) 10^3/uL Sodium 138 (136-145) mmol/L Potassium 3.7 (3.5-5.1) mmol/L Chloride 104 (98-107) mmol/L Carbon Dioxide 25.5 (21.0-32.0) mmol/L Anion Gap 12.2 (5-15) mmol/L BUN 12 (7-18) mg/dL Creatinine 0.93 (0.51-1.17) mg/dL Est Cr Clr Drug Dosing 54.19 mL/min Estimated GFR (MDRD) > 60 mL/min Glucose 78 (70-140) mg/dL Calcium 8.2 L (8.7-10.3) mg/dL Total Bilirubin 1.7 H (0.2-1.0) mg/dL AST 37 (15-37) U/L ALT 15 (14-63) U/L Alkaline Phosphatase 47 (46-116) U/L Creatine Kinase 527 H* (26-276) U/L Total Protein 5.5 L (6.4-8.2) g/dL Albumin 2.98 L (3.40-5.00) g/dL SARS CoV-2 RNA Rapid BRUNO Negative (NEGATIVE) Med Orders - Current: Current Medications Acetaminophen (Acetaminophen 325 Mg Tab) 650 mg PO Q4H PRN PRN Reason: Pain (Mild 1-3)/fever Hydrocodone Bitart/Acetaminophen (Acetaminophen/Hydrocodone 325-10 Mg Tab) 1 tab PO TID PRN PRN Reason: Pain Last Admin: 07/11/21 20:11 Dose: 1 tab Documented by: Artificial Tears (Carboxymethylcellulose Sodium 0.5% Ophth Soln 15 Ml Bottle) 1 ml EYEBOTH Q2H PRN PRN Reason: Dry Eyes Last Admin: 07/10/21 20:25 Dose: 2 drop Documented by: Artificial Tears (Carboxymethylcellulose Sodium 0.5% Ophth Soln 15 Ml Bottle) 0 ml EYEBOTH ASDIRECTED PRN PRN Reason: Other Carvedilol (Carvedilol 6.25 Mg Tab) 3.125 mg PO BIDMEALS [facility] Last Admin: 07/12/21 07:58 Dose: 3.125 mg Documented by: Fluoxetine HCl (Fluoxetine 10 Mg Cap) 20 mg PO DAILY [facility] Last Admin: 07/12/21 08:01 Dose: 20 mg Documented by: Furosemide (Furosemide 20 Mg Tab) 20 mg PO DAILY [facility] Last Admin: 07/12/21 08:01 Dose: 20 mg Documented by: Sodium Chloride (Normal Saline) 1,000 mls @ 100 mls/hr IV ASDIRECTED [facility] Last Admin: 07/12/21 00:17 Dose: 75 mls/hr Documented by: Polyethylene Glycol (Polyethylene Glycol 3350 Powder 17 Gm Packet) 17 gm PO DAILY [facility] Last Admin: 07/12/21 08:01 Dose: 17 gm Documented by: Sodium Chloride (Sodium Chloride 0.9% 10 Ml Syringe) 10 ml FLUSH Q8HR PRN PRN Reason: keep vein open Last Admin: 07/09/21 02:30 Dose: 10 ml Documented by: Tamsulosin HCl (Tamsulosin 0.4 Mg Cap.Er) 0.8 mg PO BEDTIME [facility] Last Admin: 07/11/21 20:10 Dose: 0.8 mg Documented by: Terazosin HCl (Terazosin 1 Mg Cap) 2 mg PO BEDTIME [facility] Last Admin: 07/11/21 20:08 Dose: 2 mg Documented by: Discontinued Medications Carvedilol (Carvedilol 6.25 Mg Tab) 3.125 mg PO BIDMEALS [facility] Furosemide (Furosemide 40 Mg Tab) 20 mg PO DAILY [facility] Last Admin: 07/09/21 12:22 Dose: Not Given Documented by: Sodium Chloride (Normal Saline) 1,000 mls @ 999 mls/hr IV .BOLUS ONE Stop: 07/09/21 02:28 Last Admin: 07/09/21 02:23 Dose: 999 mls/hr Documented by: Levofloxacin/Dextrose 500 mg/ (Premix) 100 mls @ 100 mls/hr IV Q24H [facility] Last Admin: 07/09/21 02:23 Dose: 100 mls/hr Documented by: Potassium Bicarbonate (Potassium Bicarbonate 25 Meq Tab.Eff) 25 meq PO ONETIME ONE Stop: 07/10/21 17:01 Last Admin: 07/10/21 17:06 Dose: 25 meq Documented by: Tamsulosin HCl (Tamsulosin 0.4 Mg Cap.Er) 0.4 mg PO BEDTIME [facility] Tamsulosin HCl (Tamsulosin 0.4 Mg Cap.Er) 0.4 mg PO BEDTIME [facility] Last Admin: 07/09/21 20:08 Dose: 0.4 mg Documented by: Terazosin HCl (Terazosin 1 Mg Cap) 2 mg PO BEDTIME [facility] - Exam General: Reports: Alert, Oriented, Cooperative, No Acute Distress Lungs: Reports: Clear to Auscultation, Normal Respiratory Effort Cardiovascular: Reports: Regular Rate, Regular Rhythm GI/Abdominal Exam: Soft Rectal (Males) Exam: Normal Exam Back Exam: Denies: CVA Tenderness (L), CVA Tenderness (R), Muscle Spasm Extremities: No Pedal Edema Skin: Reports: Warm, Dry Wound/Incisions: Denies: Erythema Neurological: Reports: No New Focal Deficit. Denies: Normal Gait Psy/Mental Status: Reports: Alert. Denies: Normal Affect (somewhat flat) *Q Meaningful Use (DIS) - VTE *Q VTE Pharmacological Contraindications *Q: Risk of Bleeding
== END 2021-07-12 10:33 | disposition home or self-care (01) | DRG 565 ==
LOC: KA.ED 23:52 → KA.MS 07-09 01:25 → UNDOADMIN 07-09 01:33 → KA.MS 07-10 23:27
PROVIDERS: ADMIT Internal Medicine; ATTEND Internal Medicine
DX: T79.6XXA Traumatic ischemia of muscle, initial encounter (principal); R90.82 White matter disease, unspecified; I99.8 Other disorder of circulatory system; I50.32 Chronic diastolic (congestive) heart failure; R74.02 Elevation of levels of lactic acid dehydrogenase [LDH]; W18.30XA Fall on same level, unspecified, initial encounter; W19.XXXA Unspecified fall, initial encounter; I51.7 Cardiomegaly; H91.90 Unspecified hearing loss, unspecified ear; R33.9 Retention of urine, unspecified; I50.9 Heart failure, unspecified; R53.1 Weakness; R82.71 Bacteriuria; Z95.0 Presence of cardiac pacemaker; F03.90 Unspecified dementia, unspecified severity, without behavioral disturbance, psychotic disturbance, mood disturbance, and anxiety; F11.90 Opioid use, unspecified, uncomplicated; N40.1 Benign prostatic hyperplasia with lower urinary tract symptoms; I25.10 Atherosclerotic heart disease of native coronary artery without angina pectoris; M19.90 Unspecified osteoarthritis, unspecified site; R26.81 Unsteadiness on feet; Z91.81 History of falling; K21.9 Gastro-esophageal reflux disease without esophagitis; N40.0 Benign prostatic hyperplasia without lower urinary tract symptoms; F41.9 Anxiety disorder, unspecified; Z85.828 Personal history of other malignant neoplasm of skin; Z88.0 Allergy status to penicillin; Z88.6 Allergy status to analgesic agent; Z79.899 Other long term (current) drug therapy; Z98.890 Other specified postprocedural states; D61.818 Other pancytopenia; Z96.642 Presence of left artificial hip joint; F32.A Depression, unspecified; D46.9 Myelodysplastic syndrome, unspecified; Z20.822 Contact with and (suspected) exposure to COVID-19; I25.2 Old myocardial infarction; E78.5 Hyperlipidemia, unspecified; I11.0 Hypertensive heart disease with heart failure; K59.09 Other constipation; Z95.1 Presence of aortocoronary bypass graft; Z90.89 Acquired absence of other organs; Z90.49 Acquired absence of other specified parts of digestive tract; Y93.9 Activity, unspecified; Y92.009 Unspecified place in unspecified non-institutional (private) residence as the place of occurrence of the external cause; Z98.42 Cataract extraction status, left eye; Z98.41 Cataract extraction status, right eye
CPT/HCPCS: 36415; 51798; 70450; 71045; 80053; 81001; 82550; 83605; 84484; 85025; 86140; 87086; 87088; 93005; 93010; 99284; 99285-25; A9270-GY; J1956; J7030; U0002

== ENCOUNTER 2021-09-12 17:21 | Emergency (ER) | payer MEDICARE, BC ==
[2021-09-12] MEDS: Morphine 4 MG/ML VIAL IVPUSH ONE (18:18)
[2021-09-12] MEDS: Ondansetron 4 MG/2 ML SDV ONE (18:29)
[2021-09-12] MEDS: Ondansetron 4 MG/2 ML SDV IVPUSH ONE (18:29)
[2021-09-12 18:42] VITALS: BP 118/57; PULSE 65
[2021-09-12 18:44] LABS: ANION GAP 12.4 mmol/L (5-15); CHLORIDE,CL 93 mmol/L (98-107); SODIUM,NA 129 mmol/L (136-145)
== END 2021-09-12 19:15 ==
LOC: KA.ED 17:21
DX: S72.141A Displaced intertrochanteric fracture of right femur, initial encounter for closed fracture (principal); I25.10 Atherosclerotic heart disease of native coronary artery without angina pectoris; I11.0 Hypertensive heart disease with heart failure; I50.9 Heart failure, unspecified; I25.2 Old myocardial infarction; E78.00 Pure hypercholesterolemia, unspecified; N40.0 Benign prostatic hyperplasia without lower urinary tract symptoms; Z88.0 Allergy status to penicillin; Z88.5 Allergy status to narcotic agent; Z79.899 Other long term (current) drug therapy; Z95.1 Presence of aortocoronary bypass graft; W07.XXXA Fall from chair, initial encounter
CPT/HCPCS: 36415; 73562-RT; 80053; 85025; 96374; 96375; 99285-25; J2270; J2405

== ENCOUNTER 2021-12-28 17:35 | Emergency (ER) | payer MEDICARE, BC ==
[2021-12-28] MEDS ORDERED: Acetaminophen 500 MG Tab PO ONE (18:36)
[2021-12-28 19:30] VITALS: BP 125/64; PULSE 67
== END 2021-12-28 20:10 ==
LOC: KA.ED 17:35
DX: S40.012A Contusion of left shoulder, initial encounter (principal); M25.412 Effusion, left shoulder; I25.10 Atherosclerotic heart disease of native coronary artery without angina pectoris; I11.0 Hypertensive heart disease with heart failure; I50.9 Heart failure, unspecified; E78.00 Pure hypercholesterolemia, unspecified; I25.2 Old myocardial infarction; Z95.0 Presence of cardiac pacemaker; Z88.0 Allergy status to penicillin; Z88.5 Allergy status to narcotic agent; Z79.899 Other long term (current) drug therapy
CPT/HCPCS: 36415; 73030-LT; 85025; 85610; 86140; 99284-25; A9270-GY

== ENCOUNTER 2022-09-11 12:53 | Emergency (ER) | payer MEDICARE, MEDICAID ==
[2022-09-11] MEDS ORDERED: Sodium Chloride 0.9% 10 ML Syringe FLUSH PRN (13:02)
[2022-09-11 14:05] LABS: ANION GAP 16.8 mmol/L (5-15); CHLORIDE,CL 100 mmol/L (98-107); SODIUM,NA 137 mmol/L (136-145)
[2022-09-11 14:08] LABS: ESTIMATED GFR 79 mL/min (>=60)
[2022-09-11 15:16] LABS: HEMOGLOBIN A1C 5.2 % (4.3-5.7)
[2022-09-11] MEDS: Sodium Chloride 0.9% 50 ML IV SCH (15:49)
[2022-09-11] MEDS: Iopamidol 755 Mg/ML 75 ML Bottle IVPUSH ONE (15:49)
[2022-09-11] MEDS: Ciprofloxacin in D5W 400 MG in Premix Bag 1 BAG IV ONE ×2 (16:19)
[2022-09-11] MEDS: Ciprofloxacin in D5W 200 ML ONE (16:20)
[2022-09-11] MEDS: Morphine 2 MG/ML SYRINGE IVPUSH ONE (17:21)
[2022-09-11] MEDS: Ondansetron 4 MG/2 ML SDV IVPUSH ONE (17:34)
[2022-09-11 17:48] VITALS: BP 116/55; PULSE 74
[2022-09-11] MEDS: Ondansetron 4 MG/2 ML SDV ONE (18:03)
[2022-09-12] MEDS: Diatrizoate Meglumine/Diatrizoate Sodium 37% 30 ML Bottle PO ONE (10:47)
== END 2022-09-11 18:25 ==
LOC: KA.ED 12:53
DX: K52.89 Other specified noninfective gastroenteritis and colitis (principal); E78.00 Pure hypercholesterolemia, unspecified; I25.10 Atherosclerotic heart disease of native coronary artery without angina pectoris; I11.0 Hypertensive heart disease with heart failure; I50.9 Heart failure, unspecified; I25.2 Old myocardial infarction; Z95.1 Presence of aortocoronary bypass graft; Z95.0 Presence of cardiac pacemaker; Z88.0 Allergy status to penicillin; Z88.5 Allergy status to narcotic agent; Z79.899 Other long term (current) drug therapy
CPT/HCPCS: 36415; 71045; 74177; 80053; 81001; 82150; 82947; 83036; 83605; 83690; 83880; 84484; 85025; 87086; 87088; 87186; 96365; 96375; 99284; 99285-25; J0744; J2270; J2405; Q9967

== ENCOUNTER 2023-05-08 09:33 | Inpatient (IN) | payer MEDICARE, MEDICAID ==
[2023-05-09] MEDS ORDERED: Atropine 1% Ophth Soln 5 ML Bottle SL PRN (12:00)
[2023-05-09] MEDS ORDERED: LORazepam 2 MG/ML SDV IVPUSH PRN (12:03)
[2023-05-09] MEDS ORDERED: Acetaminophen 650 MG Supp RECTAL PRN (12:05)
[2023-05-09] MEDS: Morphine 2 MG/ML SYRINGE IVPUSH PRN ×4 (12:59→19:10)
== END 2023-05-09 21:36 | disposition expired | DRG 951 ==
LOC: UNDOADMIN 05-09 11:12 → KA.MS 05-09 11:12
PROVIDERS: ADMIT Internal Medicine; ATTEND Internal Medicine
DX: Z51.5 Encounter for palliative care (principal); Z66 Do not resuscitate
CPT/HCPCS: A9270-GY; J2060; J2270